=== PATIENT | female | born 1940 | race African-American/Black ===

== ENCOUNTER 2016-06-15 13:36 | Inpatient (IN) | payer MEDICARE ==
[2016-06-15 14:45] LABS: HEMATOCRIT 27.6 % (36.0-47.0); HEMOGLOBIN 8.8 g/dL (12.0-15.5); HGB HCT DIFFERENCE -1.2; MEAN CORPUSCULAR HEMOGLOBIN 24.2 pg (27.0-33.4); MEAN CORPUSCULAR HGB CONC 31.8 g/dL (32.0-36.0); MEAN CORPUSCULAR VOLUME 76 fl (80-97); RED BLOOD COUNT 3.63 10^6/uL (3.72-5.28); WHITE BLOOD COUNT 5.1 10^3/uL (4.0-10.5)
[2016-06-15 15:02] LABS: ALANINE AMINOTRANSFERASE 51 U/L (9-52); ALBUMIN 3.4 g/dL (3.5-5.0); ALKALINE PHOSPHATASE 57 U/L (38-126); ANION GAP 12 (5-19); ASPARTATE AMINO TRANSFERASE 42 U/L (14-36); BILIRUBIN,TOTAL 0.8 mg/dL (0.2-1.3); BLOOD UREA NITROGEN 27 mg/dL (7-20); CALCIUM 9.1 mg/dL (8.4-10.2); CARBON DIOXIDE 28 mmol/L (22-30); CHLORIDE 96 mmol/L (98-107); CREATINE KINASE 250 U/L (30-135); CREATININE RESULT 0.93 mg/dL (0.52-1.25); GLUCOSE 104 mg/dL (75-110); POTASSIUM 4.5 mmol/L (3.6-5.0); SODIUM 135.5 mmol/L (137-145); TOTAL PROTEIN 6.1 g/dL (6.3-8.2)
[2016-06-15 15:23] LABS: CREATINE KINASE MB 4.75 ng/mL (<4.55); TROPONIN I 0.015 ng/mL
[2016-06-15 15:46] LABS: FERRITIN 8.51 ng/mL (11.1-264.0)
[2016-06-15] MEDS ORDERED: (PENDING PHARMACY ID) (Lisinopril/Hydrochlorothiazide [Zestoretic 20-12.5 Mg Tablet] 1 TAB PO SCH (17:00)
[2016-06-15] MEDS ORDERED: NORMAL SALINE 250 ML IV PRN ×2 (17:22)
[2016-06-15] MEDS ORDERED: NORMAL SALINE 250 ML with FUROSEMIDE 250 MG IV PRN ×4 (17:24→21:12)
[2016-06-15] MEDS ORDERED: ATORVASTATIN CALCIUM 10 MG TABLET PO ONE (18:00)
[2016-06-15] MEDS ORDERED: IRON SUCROSE COMPLEX INJ/PF 100 MG/5 ML SDV IV ONE (18:00)
[2016-06-15] MEDS ORDERED: METOPROLOL SUCCINATE 25 MG TAB.SR.24H PO ONE (18:00)
[2016-06-15] MEDS: RIVAROXABAN 15 MG TABLET PO SCH (18:04)
[2016-06-15] MEDS ORDERED: METFORMIN HCL 500 MG TABLET PO ONE (19:00)
--- NOTE | 2016-06-15 20:51 | XCELERA REPORT ---
[address] [address] Transthoracic Echocardiogram Report Name: AILYN ROMERO Age: 76 yrs Gender: Female : 1940 Patient Status: Inpatient Patient Location: 5\S\537\S\A Study Date: 06/15/2016 08:04 PM Height: 64 in Weight: 91 lb BSA: 1.4 m2 Procedure: A complete two-dimensional transthoracic echocardiogram was performed (2D, M-mode, spectral and color flow Doppler). The study was technically adequate with some images being suboptimal in quality. Reason For Study: CHF Ordering Physician: JONATAN LÓPEZ Performed By: Mendez Back Interpretation Summary Left ventricular systolic function is low normal. The right ventricle is moderate to severely dilated. The right ventricular systolic function is moderately reduced. The right ventricle appears to be hypertrophied There is mild concentric left ventricular hypertrophy. The left ventricle is grossly normal size. LV Wall motion cannot be accurately commented on, but no definite regional wall motion abnormalities noted. LV diastolic function could not be adequately assessed. The right atrium is severely dilated. The left atrium is small. There is no mitral valve stenosis. There is a mild amount of mitral regurgitation There is no aortic valve stenosis There is a mild amount of aortic regurgitation There is a mild to moderate amount of tricuspid regurgitation There is moderate to severe pulmonary hypertension by echo Right ventricular systolic pressure is estimated to be elevated at 50- 60mmHg. The aortic root is not well visualized but is probably normal size. The inferior vena cava appeared dilated and decreased < 50% with respiration (RAP 15-20 mmHg) Minimal pericardial effusion. MMode/2D Measurements \T\ Calculations RVDd: 2.6 cm LVIDd: 3.9 cm FS: 38.3 % Ao root diam: 3.6 cm IVSd: 0.89 cm LVIDs: 2.4 cm EDV(Teich): 66.6 ml LVPWd: 1.0 cm ESV(Teich): 20.5 ml Ao root area: 10.0 cm2 EF(Teich): 69.2 % LA dimension: 2.7 cm Doppler Measurements \T\ Calculations MV E max jose: MV P1/2t max jose: Ao V2 max: AI max jose: 78.0 cm/sec 75.3 cm/sec 135.7 cm/sec 350.5 cm/sec MV A max jose: MV P1/2t: 48.8 msec Ao max PG: AI max P.7 cm/sec 7.4 mmHg 49.5 mmHg MV E/A: 0.51 MVA(P1/2t): 4.5 cm2 AI dec slope: MV dec slope: 452.5 cm/sec2 211.3 cm/sec2 MV dec time: AI P1/2t: 0.17 sec 485.8 msec LV V1 max PG: PA V2 max: PI end-d jose: TR max jose: 1.5 mmHg 43.7 cm/sec 176.5 cm/sec 308.1 cm/sec LV V1 max: PA max PG: TR max P.6 cm/sec 0.77 mmHg 38.0 mmHg RVSP(TR): 48.0 mmHg RAP systole: 10.0 mmHg Left Ventricle The left ventricle is grossly normal size. There is mild concentric left ventricular hypertrophy. Left ventricular systolic function is low normal. LV diastolic function could not be adequately assessed. Wall motion cannot be accurately commented on, but no definite regional wall motion abnormalities noted. Right Ventricle The right ventricle is moderate to severely dilated. The right ventricle appears to be hypertrophied. The right ventricular systolic function is moderately reduced. Atria The right atrium is severely dilated. The left atrium is small. Interarterial septum not well visualized and not well dopplered. Cannot comment on ASD/PFO presence. Mitral Valve The mitral valve is grossly normal. There is no mitral valve stenosis. There is a mild amount of mitral regurgitation. Aortic Valve The aortic valve is grossly normal. There is no aortic valve stenosis. There is a mild amount of aortic regurgitation. Tricuspid Valve The tricuspid valve is not well visualized, but is grossly normal. There is no tricuspid stenosis. There is a mild to moderate amount of tricuspid regurgitation. There is moderate to severe pulmonary hypertension by echo. Right ventricular systolic pressure is estimated to be elevated at 50- 60mmHg. Pulmonic Valve The pulmonic valve is not well visualized. Great Vessels The aortic root is not well visualized but is probably normal size. The inferior vena cava appeared dilated and decreased < 50% with respiration (RAP 15-20 mmHg). Effusions Minimal pericardial effusion. : JONATAN LÓPEZ > Mike Mccall
[2016-06-15] MEDS: HYDROCHLOROTHIAZIDE 12.5 MG CAPSULE PO SCH (21:56)
[2016-06-15] MEDS: LISINOPRIL 10 MG TABLET PO SCH (21:57)
[2016-06-15 23:14] LABS: CREATINE KINASE MB 3.91 ng/mL (<4.55); TROPONIN I 0.016 ng/mL
[2016-06-16] MEDS ORDERED: LORAZEPAM INJ 2 MG/1 ML VIAL IV ONE (02:00)
[2016-06-16] MEDS ORDERED: FUROSEMIDE INJ/PF 20 MG/2 ML SDV ONE (04:46)
[2016-06-16 07:46] LABS: CREATINE KINASE MB 3.51 ng/mL (<4.55); TROPONIN I 0.014 ng/mL
--- NOTE | 2016-06-16 08:17 | EKG REPORT ---
SEVERITY:- ABNORMAL ECG - SINUS RHYTHM LEFT ATRIAL ABNORMALITY NO R WAVE PROGRESSION ANTERIOR LEADS, CONSIDER OLD VA ABNORMAL T, CONSIDER ISCHEMIA, DIFFUSE LEADS BORDERLINE PROLONGED QT INTERVAL : Confirmed by: Gage Cloud MD 16-Jun-2016 08:16:51
[2016-06-16 08:55] LABS: ABSOLUTE BASOPHILS # (AUTO) 0.1 10^3/uL (0.0-0.2); ABSOLUTE LYMPHOCYTES (AUTO) 1.4 10^3/uL (0.5-4.7); ABSOLUTE MONOCYTES (AUTO) 0.5 10^3/uL (0.1-1.4); ABSOLUTE NEUT (AUTO) 5.1 10^3/uL (1.7-8.2); BASOPHILS % (AUTO) 1.4 % (0-2); EOSINOPHILS % (AUTO) 0.7 % (0-6); HEMOGLOBIN 10.8 g/dL (12.0-15.5); HGB HCT DIFFERENCE -0.6; MEAN CORPUSCULAR HEMOGLOBIN 26.2 pg (27.0-33.4); MEAN CORPUSCULAR HGB CONC 32.8 g/dL (32.0-36.0); MONOCYTES % (AUTO) 7.1 % (3-13); RED BLOOD COUNT 4.13 10^6/uL (3.72-5.28); RED CELL DISTRIBUTION WIDTH 19.2 % (11.5-14.0); SEGMENTED NEUTROPHILS % (AUTO) 70.8 % (42-78); WHITE BLOOD COUNT 7.2 10^3/uL (4.0-10.5)
[2016-06-16 09:18] LABS: MEAN CORPUSCULAR VOLUME 80 fl (80-97)
[2016-06-16] MEDS: METFORMIN HCL 500 MG TABLET PO SCH ×2 (11:36→18:01)
[2016-06-16] MEDS: HYDROCHLOROTHIAZIDE 12.5 MG CAPSULE PO SCH ×2 (11:36→21:45)
[2016-06-16] MEDS: METOPROLOL SUCCINATE 25 MG TAB.SR.24H PO SCH (11:36)
[2016-06-16] MEDS: LISINOPRIL 10 MG TABLET PO SCH ×2 (11:37→21:45)
[2016-06-16] MEDS: RIVAROXABAN 15 MG TABLET PO SCH (18:01)
[2016-06-16] MEDS: ATORVASTATIN CALCIUM 10 MG TABLET PO SCH (18:03)
--- NOTE | 2016-06-16 19:29 | PDOC H&P ---
History of Present Illness Admission Date/PCP: 06/15/16 13:36 JONATAN LÓPEZ MD History of Present Illness: AILYN ROMERO is a 76 year old female. she came to the office without a scheduled appointment, she complained of extreme fatigue, shortness of breath and lower extremity swelling/edema. She was evaluated in the office she was found to be pale looking, she was admitted directly from the office into the hospital for evaluation of her symptoms. She presented to the office with CHF picture, in the hospital. The serum BNP was 7970 that suggest CHF. She was also found to have iron deficiency anemia. A 2-D echo was done it showed moderate to severe dilated right ventricle, the right ventricle appears to be hypertrophied, there is mild concentric left ventricular hypertrophy. The left ventricle was grossly normal size. The right atrium is severely dilated. There is moderate to severe pulmonary hypertension. The right ventricle systolic pressure is estimated to be 50-[address] chest of the lung was ordered to define the lung interstitium but patient refused to do CT chest, because she is terrified of the CT scanner. She has severe anemia in the setting of congestive heart failure, though she does not meet the criteria of hemoglobin below 8 to get a blood transfusion, but it is del cid to transfuse her because she is CHF/right ventricular heart failure. Past Medical History Cardiac Medical History: Reports: Atrial Fibrillation, Hyperlipidema, Hypertension, Other - Pulmonary hypertension Endocrine Medical History: Reports: Diabetes Mellitus Type 2 Musculoskeltal Medical History: Reports: Arthritis Social History Smoking Status: Never Smoker Frequency of Alcohol Use: None Hx Recreational Drug Use: No Hx Prescription Drug Abuse: No Family History Family History: Reviewed & Not Pertinent Parental Family History Reviewed: Yes Children Family History Reviewed: Yes Sibling(s) Family History Reviewed.: Yes Medication/Allergy Home Medications: Atorvastatin Calcium [Lipitor 10 mg Tablet] 10 mg PO DAILY 06/15/16 Cyanocobalamin (Vitamin B-12) [Vitamin B-12 Inj 1000 Mcg/1 ml Vial] 1,000 mcg INJ Q30D 06/15/16 Lisinopril/Hydrochlorothiazide [Zestoretic 20-12.5 mg Tablet] 1 tab PO Q12 06/15 Metformin HCl [Glucophage] 1,000 mg PO BID 06/15/16 Metoprolol Succinate [Toprol Xl 25 mg Tab.sr] 25 mg PO DAILY 06/15/16 Rivaroxaban [Xarelto 15 mg Tablet] 15 mg PO DAILY 06/15/16 Allergies/Adverse Reactions: iodine [Iodine] Allergy (Unknown, Verified 04/01/12 14:41) seafood Allergy (Unknown, Uncoded 04/01/12 14:41) Anaphylaxis Review of Systems Constitutional: PRESENT: fatigue, weakness Cardiovascular: PRESENT: dyspnea on exertion, edema Gastrointestinal: PRESENT: nausea Genitourinary: ABSENT: as per HPI, difficulty urinating, dysuria, hematuria, nocturia, other Neurological: PRESENT: weakness Endocrine: ABSENT: as per HPI, cold intolerance, flushing, heat intolerance, menstrual abnormalities, polydipsia, polyphagia, polyuria, other Hematologic/Lymphatic: ABSENT: as per HPI, easy bleeding, easy bruising, lymphadenopathy, other Physical Exam Vital Signs: Temp Pulse Resp BP Pulse Ox 97.7 F 73 15 126/89 H 100 06/16/16 15:00 06/16/16 15:00 06/16/16 15:00 06/16/16 15:00 06/16/16 15:00 Intake & Output 06/15/16 06/16/16 06/17/16 06:59 06:59 06:59 Intake Total 1776 1550 Output Total 1800 1550 Balance -24 0 Weight 41.7 kg General appearance: PRESENT: mild distress, thin Eye exam: PRESENT: PERRLA Mouth exam: PRESENT: dry mucosa Neck exam: PRESENT: other - No jugular venous distention, no lymphadenopathy Respiratory exam: PRESENT: rales Cardiovascular exam: PRESENT: +S1, +S2, other - Irregular heartbeat GI/Abdominal exam: PRESENT: soft Extremities exam: PRESENT: pedal edema Neurological exam: PRESENT: alert, oriented to person, oriented to place, CN II- XII grossly intact Results Laboratory Results: 06/16/16 08:46 06/15/16 14:28 06/15/16 06/16/16 17:35 08:46 WBC 7.2 RBC 4.13 Hgb 10.8 L Hct 33.0 L MCV 80 D MCH 26.2 L MCHC 32.8 RDW 19.2 H Plt Count 268 Seg Neutrophils % 70.8 Lymphocytes % 20.0 Monocytes % 7.1 Eosinophils % 0.7 Basophils % 1.4 Absolute Neutrophils 5.1 Absolute Lymphocytes 1.4 Absolute Monocytes 0.5 Absolute Eosinophils 0.0 Absolute Basophils 0.1 Blood Type A NEGATIVE Antibody Screen NEGATIVE 06/15/16 06/15/16 06/15/16 14:28 14:28 22:35 Creatine Kinase 250 H 231 H CK-MB (CK-2) 4.75 H Troponin I 0.015 NT-Pro-B Natriuret Pep 7970 H 06/15/16 06/16/16 06/16/16 22:35 07:07 07:07 Creatine Kinase 199 H CK-MB (CK-2) 3.91 3.51 Troponin I 0.016 0.014 NT-Pro-B Natriuret Pep Impressions: Chest X-Ray 06/15/16 00:00 IMPRESSION: CARDIAC ENLARGEMENT. VASCULAR CONGESTION. Assessment & Plan - Diagnosis (1) Right heart failure with reduced right ventricular function Is this a current diagnosis for this admission?: YesPlan: She has symptomatic right ventricular heart failure. There is associated severe pulmonary hypertension, patient is on Xarelto because of atrial fibrillation is unlikely that she has pulmonary embolism, she probably have interstitial lung disease on auscultation of the chest there is dry crackles but patient refused CT chest to define the parenchyma of the lung (2) Iron deficiency anemia Qualifiers: Iron deficiency anemia type: unspecified iron deficiency Qualified Code(s): D50.9 - Iron deficiency anemia, unspecified Is this a current diagnosis for this admission?: YesPlan: She has iron deficiency anemia, she was given Venofer and transfused with 2 units of packed red blood cells (3) Chronic atrial fibrillation Is this a current diagnosis for this admission?: Yes (4) Diabetes mellitus type 2 in nonobese Is this a current diagnosis for this admission?: Yes (5) Body mass index (BMI) 19 or less, adult Is this a current diagnosis for this admission?: YesPlan: This is due to undernutrition
--- NOTE | 2016-06-16 19:38 | PDOC PROGRESS REPORT ---
Subjective Progress Note for:: 06/16/16 Subjective:: Patient was seen by the bedside, she was admitted yesterday because of cor pulmonale, the chest x-ray showed COPD patient refused CT scan of the chest. She was transfused with 2 units of packed red blood cells, and she was treated with low dose Lasix infusion. This will be discontinued Physical Exam Vital Signs: Temp Pulse Resp BP Pulse Ox 97.7 F 73 15 126/89 H 100 06/16/16 15:00 06/16/16 15:00 06/16/16 15:00 06/16/16 15:00 06/16/16 15:00 Intake & Output 06/15/16 06/16/16 06/17/16 06:59 06:59 06:59 Intake Total 1776 1550 Output Total 1800 1550 Balance -24 0 Weight 41.7 kg General appearance: PRESENT: no acute distress Eye exam: PRESENT: PERRLA Respiratory exam: PRESENT: crackles Cardiovascular exam: PRESENT: +S1, +S2 GI/Abdominal exam: PRESENT: soft Extremities exam: PRESENT: pedal edema Neurological exam: PRESENT: alert, CN II-XII grossly intact Results Laboratory Results: 06/16/16 08:46 06/15/16 14:28 06/15/16 06/16/16 17:35 08:46 WBC 7.2 RBC 4.13 Hgb 10.8 L Hct 33.0 L MCV 80 D MCH 26.2 L MCHC 32.8 RDW 19.2 H Plt Count 268 Seg Neutrophils % 70.8 Lymphocytes % 20.0 Monocytes % 7.1 Eosinophils % 0.7 Basophils % 1.4 Absolute Neutrophils 5.1 Absolute Lymphocytes 1.4 Absolute Monocytes 0.5 Absolute Eosinophils 0.0 Absolute Basophils 0.1 Blood Type A NEGATIVE Antibody Screen NEGATIVE 06/15/16 06/15/16 06/15/16 14:28 14:28 22:35 Creatine Kinase 250 H 231 H CK-MB (CK-2) 4.75 H Troponin I 0.015 NT-Pro-B Natriuret Pep 7970 H 06/15/16 06/16/16 06/16/16 22:35 07:07 07:07 Creatine Kinase 199 H CK-MB (CK-2) 3.91 3.51 Troponin I 0.016 0.014 NT-Pro-B Natriuret Pep Impressions: Chest X-Ray 06/15/16 00:00 IMPRESSION: CARDIAC ENLARGEMENT. VASCULAR CONGESTION. Assessment & Plan - Diagnosis (1) Right heart failure with reduced right ventricular function Is this a current diagnosis for this admission?: Yes (2) Iron deficiency anemia Qualifiers: Iron deficiency anemia type: unspecified iron deficiency Qualified Code(s): D50.9 - Iron deficiency anemia, unspecified Is this a current diagnosis for this admission?: Yes (3) Chronic atrial fibrillation Is this a current diagnosis for this admission?: Yes (4) Diabetes mellitus type 2 in nonobese Is this a current diagnosis for this admission?: Yes (5) Body mass index (BMI) 19 or less, adult Is this a current diagnosis for this admission?: Yes (6) Cor pulmonale Is this a current diagnosis for this admission?: YesPlan: She has cor pulmonale, a full PFT will be ordered.
[2016-06-16] MEDS ORDERED: LEVALBUTEROL HCL NEB 0.63 MG/3 ML AMPUL NEB PRN (19:39)
[2016-06-16 20:38] LABS: HEMATOCRIT 35.3 % (36.0-47.0); HEMOGLOBIN 11.5 g/dL (12.0-15.5); HGB HCT DIFFERENCE -0.8; MEAN CORPUSCULAR HGB CONC 32.6 g/dL (32.0-36.0); MEAN CORPUSCULAR VOLUME 80 fl (80-97); RED BLOOD COUNT 4.42 10^6/uL (3.72-5.28); RED CELL DISTRIBUTION WIDTH 19.4 % (11.5-14.0); WHITE BLOOD COUNT 8.9 10^3/uL (4.0-10.5)
[2016-06-16 20:47] LABS: PROTHROMBIN TIME 17.6 SEC (11.4-15.4)
[2016-06-16 20:48] LABS: PARTIAL THROMBOPLASTIN TIME 37.5 SEC (23.5-35.8)
[2016-06-16 20:52] LABS: CREATININE RESULT 1.16 mg/dL (0.52-1.25)
[2016-06-17] MEDS: METOPROLOL SUCCINATE 25 MG TAB.SR.24H PO SCH (10:11)
[2016-06-17] MEDS: HYDROCHLOROTHIAZIDE 12.5 MG CAPSULE PO SCH ×2 (10:11→22:34)
[2016-06-17] MEDS: METFORMIN HCL 500 MG TABLET PO SCH ×2 (10:12→17:14)
[2016-06-17] MEDS: LISINOPRIL 10 MG TABLET PO SCH ×2 (10:12→22:34)
[2016-06-17 11:40] LABS: CREATININE URINE 40.6 mg/dL (Not Estab.); CREATININE URINE 41.7 mg/dL (Not Estab.); MICROALBUMIN URINE 30.4 ug/mL (Not Estab.)
--- NOTE | 2016-06-17 15:06 | PDOC PROGRESS REPORT ---
Subjective Progress Note for:: 06/17/16 Subjective:: Patient was seen by the bedside, she was admitted because of cor pulmonale, with right heart failure. The disease process was explained to her, she is very hard of hearing. There is associated severe pulmonary hypertension. She will stay the weekend Physical Exam Vital Signs: Temp Pulse Resp BP Pulse Ox 97.8 F 73 18 114/69 96 06/17/16 11:00 06/17/16 14:00 06/17/16 11:00 06/17/16 11:00 06/17/16 11:00 Intake & Output 06/16/16 06/17/16 06/18/16 06:59 06:59 06:59 Intake Total 1776 2350 Output Total 1800 1750 Balance -24 600 Weight 41.7 kg 42.2 kg General appearance: PRESENT: no acute distress Eye exam: PRESENT: PERRLA Respiratory exam: PRESENT: crackles Cardiovascular exam: PRESENT: irregular rhythm, +S1, +S2 GI/Abdominal exam: PRESENT: soft Neurological exam: PRESENT: alert, CN II-XII grossly intact Results Laboratory Results: 06/16/16 20:30 06/16/16 20:30 06/16/16 06/16/16 20:30 20:30 WBC 8.9 RBC 4.42 Hgb 11.5 L Hct 35.3 L MCV 80 MCH 26.0 L MCHC 32.6 RDW 19.4 H Plt Count 284 Creatinine 1.16 Est GFR ( Amer) 55 L Est GFR (Non-Af Amer) 45 L 06/15/16 06/15/16 06/15/16 14:28 14:28 22:35 Creatine Kinase 250 H 231 H CK-MB (CK-2) 4.75 H Troponin I 0.015 NT-Pro-B Natriuret Pep 7970 H 06/15/16 06/16/16 06/16/16 22:35 07:07 07:07 Creatine Kinase 199 H CK-MB (CK-2) 3.91 3.51 Troponin I 0.016 0.014 NT-Pro-B Natriuret Pep Impressions: Chest X-Ray 06/15/16 00:00 IMPRESSION: CARDIAC ENLARGEMENT. VASCULAR CONGESTION. Assessment & Plan - Diagnosis (1) Right heart failure with reduced right ventricular function Is this a current diagnosis for this admission?: YesPlan: She may need home oxygen and discharged, she was advised to use compression stocking for the lower extremity edema and to avoid diuretic (2) Iron deficiency anemia Qualifiers: Iron deficiency anemia type: unspecified iron deficiency Qualified Code(s): D50.9 - Iron deficiency anemia, unspecified Is this a current diagnosis for this admission?: Yes (3) Chronic atrial fibrillation Is this a current diagnosis for this admission?: Yes (4) Diabetes mellitus type 2 in nonobese Is this a current diagnosis for this admission?: Yes (5) Body mass index (BMI) 19 or less, adult Is this a current diagnosis for this admission?: Yes (6) Cor pulmonale Is this a current diagnosis for this admission?: Yes
[2016-06-17] MEDS: ATORVASTATIN CALCIUM 10 MG TABLET PO SCH (17:14)
[2016-06-17] MEDS: RIVAROXABAN 15 MG TABLET PO SCH (17:14)
--- NOTE | 2016-06-18 11:05 | PDOC PROGRESS REPORT ---
Subjective Progress Note for:: 06/18/16 Subjective:: Severe hearing impairment. Denied chest pain, difficulty with breathing, nausea , vomiting or abdominal pain. Tolerating oral intake. Physical Exam Vital Signs: Temp Pulse Resp BP Pulse Ox 98.1 F 74 14 125/77 97 06/18/16 08:15 06/18/16 08:15 06/18/16 08:15 06/18/16 08:15 06/18/16 08:15 Intake & Output 06/17/16 06/18/16 06/19/16 06:59 06:59 06:59 Intake Total 2350 1980 Output Total 1750 800 Balance 600 1180 Weight 42.2 kg 43 kg General appearance: PRESENT: no acute distress, cooperative, thin Head exam: PRESENT: atraumatic, normocephalic Eye exam: PRESENT: conjunctiva pink, EOMI, PERRLA. ABSENT: scleral icterus Mouth exam: PRESENT: moist Throat exam: ABSENT: post pharyngeal erythema, tonsillar erythema, tonsillar exudate, tonsillogmegaly, other Neck exam: PRESENT: full ROM. ABSENT: carotid bruit, JVD, lymphadenopathy, thyromegaly Respiratory exam: ABSENT: accessory muscle use, chest wall tenderness, clear to auscultation chip, crackles, decreased breath sounds, prolonged expiratory phas, rales, retraction, rhonchi, stridor, symmetrical, tachypnea, unlabored, wheezes , other Cardiovascular exam: PRESENT: RRR. ABSENT: diastolic murmur, rubs, systolic murmur GI/Abdominal exam: PRESENT: normal bowel sounds, soft. ABSENT: distended, guarding, mass, organolmegaly, rebound, tenderness Extremities exam: PRESENT: full ROM Musculoskeletal exam: PRESENT: deformity - related to joint involvement with arthritis Neurological exam: PRESENT: alert, awake, oriented to person, oriented to place , oriented to time, oriented to situation, CN II-XII grossly intact. ABSENT: motor sensory deficit Psychiatric exam: PRESENT: appropriate affect, normal mood. ABSENT: homicidal ideation, suicidal ideation Skin exam: PRESENT: dry, intact, warm. ABSENT: cyanosis, rash Results Laboratory Results: 06/16/16 20:30 06/16/16 20:30 06/15/16 06/15/16 06/15/16 14:28 14:28 22:35 Creatine Kinase 250 H 231 H CK-MB (CK-2) 4.75 H Troponin I 0.015 NT-Pro-B Natriuret Pep 7970 H 06/15/16 06/16/16 06/16/16 22:35 07:07 07:07 Creatine Kinase 199 H CK-MB (CK-2) 3.91 3.51 Troponin I 0.016 0.014 NT-Pro-B Natriuret Pep Impressions: Chest X-Ray 06/15/16 00:00 IMPRESSION: CARDIAC ENLARGEMENT. VASCULAR CONGESTION. Assessment & Plan - Diagnosis (1) Protein-calorie malnutrition, moderate Is this a current diagnosis for this admission?: YesPlan: Add oral supplementation to meals. Encouraged increase P.O intake. - Time Time Spent with patient: 25-34 minutes Medications reviewed and adjusted accordingly: Yes Anticipated discharge: Home Within: Other - Inpatient Certification Medical Necessity: Need For Continuous Telemetry Monitoring, Risk of Diagnosis Which Will Require Inpatient Eval/Care/Monitoring Post Hospital Care: D/C Insulation Board Back Tender Documentation - Plan Summary Plan Summary: See covering physician orders.
[2016-06-18] MEDS: METFORMIN HCL 500 MG TABLET PO SCH ×2 (11:26→17:06)
[2016-06-18] MEDS: METOPROLOL SUCCINATE 25 MG TAB.SR.24H PO SCH (11:27)
[2016-06-18] MEDS: LISINOPRIL 10 MG TABLET PO SCH (11:29)
[2016-06-18] MEDS: HYDROCHLOROTHIAZIDE 12.5 MG CAPSULE PO SCH (11:30)
[2016-06-18] MEDS: RIVAROXABAN 15 MG TABLET PO SCH (17:07)
[2016-06-18] MEDS: ATORVASTATIN CALCIUM 10 MG TABLET PO SCH (17:07)
[2016-06-19] MEDS: HYDROCHLOROTHIAZIDE 12.5 MG CAPSULE PO SCH ×3 (00:23→23:37)
[2016-06-19] MEDS: LISINOPRIL 10 MG TABLET PO SCH ×3 (00:23→23:38)
--- NOTE | 2016-06-19 11:01 | PDOC PROGRESS REPORT ---
Subjective Progress Note for:: 06/19/16 Subjective:: Severe hearing impairment. Denied chest pain, difficulty with breathing, nausea , vomiting or abdominal pain. Tolerating oral intake. Physical Exam Vital Signs: Temp Pulse Resp BP Pulse Ox 97.3 F 67 16 100/64 95 06/19/16 08:00 06/19/16 08:00 06/19/16 08:00 06/19/16 10:04 06/19/16 08:00 Intake & Output 06/18/16 06/19/16 06/20/16 06:59 06:59 06:59 Intake Total 1980 2610 Output Total 800 500 Balance 1180 2110 Weight 43 kg 42.5 kg Physical Exam: General appearance: PRESENT: no acute distress, cooperative, thin Head exam: PRESENT: atraumatic, normocephalic Eye exam: PRESENT: conjunctiva pink, EOMI, PERRLA. ABSENT: scleral icterus Mouth exam: PRESENT: moist Throat exam: ABSENT: post pharyngeal erythema, tonsillar erythema, tonsillar exudate, tonsillogmegaly, other Neck exam: PRESENT: full ROM. ABSENT: carotid bruit, JVD, lymphadenopathy, thyromegaly Respiratory exam: ABSENT: accessory muscle use, chest wall tenderness, clear to auscultation chip, crackles, decreased breath sounds, prolonged expiratory phas, rales, retraction, rhonchi, stridor, symmetrical, tachypnea, unlabored, wheezes , other Cardiovascular exam: PRESENT: RRR. ABSENT: diastolic murmur, rubs, systolic murmur GI/Abdominal exam: PRESENT: normal bowel sounds, soft. ABSENT: distended, guarding, mass, organolmegaly, rebound, tenderness Extremities exam: PRESENT: full ROM Musculoskeletal exam: PRESENT: deformity - related to joint involvement with arthritis Neurological exam: PRESENT: alert, awake, oriented to person, oriented to place , oriented to time, oriented to situation, CN II-XII grossly intact. ABSENT: motor sensory deficit Psychiatric exam: PRESENT: appropriate affect, normal mood. ABSENT: homicidal ideation, suicidal ideation Skin exam: PRESENT: dry, intact, warm. ABSENT: cyanosis, rash Results Laboratory Results: 06/16/16 20:30 06/16/16 20:30 06/15/16 06/15/16 06/15/16 14:28 14:28 22:35 Creatine Kinase 250 H 231 H CK-MB (CK-2) 4.75 H Troponin I 0.015 NT-Pro-B Natriuret Pep 7970 H 06/15/16 06/16/16 06/16/16 22:35 07:07 07:07 Creatine Kinase 199 H CK-MB (CK-2) 3.91 3.51 Troponin I 0.016 0.014 NT-Pro-B Natriuret Pep Impressions: Chest X-Ray 06/15/16 00:00 IMPRESSION: CARDIAC ENLARGEMENT. VASCULAR CONGESTION. Assessment & Plan - Diagnosis (1) Protein-calorie malnutrition, moderate Is this a current diagnosis for this admission?: YesPlan: Maintain on oral supplementation with meals. Encouraged increase P.O intake. (2) Chronic atrial fibrillation Is this a current diagnosis for this admission?: YesPlan: Continue current medication management. (3) Cor pulmonale Is this a current diagnosis for this admission?: Yes (4) Diabetes mellitus type 2 in nonobese Is this a current diagnosis for this admission?: YesPlan: Continue current medication management. (5) Iron deficiency anemia Qualifiers: Iron deficiency anemia type: unspecified iron deficiency Qualified Code(s): D50.9 - Iron deficiency anemia, unspecified Is this a current diagnosis for this admission?: YesPlan: Continue current medication management. (6) Right heart failure with reduced right ventricular function Is this a current diagnosis for this admission?: YesPlan: Continue current medication management. - Time Time Spent with patient: 25-34 minutes Medications reviewed and adjusted accordingly: Yes Anticipated discharge: Home with Homehealth Within: Other - Inpatient Certification Medical Necessity: Need For Continuous Telemetry Monitoring, Risk of Complication if Not Cared For in Hospital - Plan Summary Plan Summary: See covering physician orders.
[2016-06-19] MEDS: METOPROLOL SUCCINATE 25 MG TAB.SR.24H PO SCH (12:18)
[2016-06-19] MEDS: METFORMIN HCL 500 MG TABLET PO SCH ×2 (12:25→18:35)
[2016-06-19] MEDS: ATORVASTATIN CALCIUM 10 MG TABLET PO SCH (18:35)
[2016-06-19] MEDS: RIVAROXABAN 15 MG TABLET PO SCH (18:35)
[2016-06-20] MEDS: METOPROLOL SUCCINATE 25 MG TAB.SR.24H PO SCH (10:08)
[2016-06-20] MEDS: HYDROCHLOROTHIAZIDE 12.5 MG CAPSULE PO SCH ×2 (10:09→21:56)
[2016-06-20] MEDS: LISINOPRIL 10 MG TABLET PO SCH ×2 (10:09→21:56)
[2016-06-20] MEDS: METFORMIN HCL 500 MG TABLET PO SCH ×2 (10:10→17:22)
[2016-06-20] MEDS: ATORVASTATIN CALCIUM 10 MG TABLET PO SCH (17:21)
[2016-06-20] MEDS: RIVAROXABAN 15 MG TABLET PO SCH (17:22)
--- NOTE | 2016-06-20 21:16 | PDOC DISCHARGE SUMMARY ---
General - Admit/Disc Date/PCP Admission Date/Primary Care Provider: 06/15/16 13:36 JONATAN LÓPEZ MD Discharge Date: 06/21/16 - Discharge Diagnosis (1) Right heart failure with reduced right ventricular function Is this a current diagnosis for this admission?: Yes (2) Iron deficiency anemia Is this a current diagnosis for this admission?: Yes (3) Chronic atrial fibrillation Is this a current diagnosis for this admission?: Yes (4) Diabetes mellitus type 2 in nonobese Is this a current diagnosis for this admission?: Yes (5) Body mass index (BMI) 19 or less, adult Is this a current diagnosis for this admission?: Yes (6) Cor pulmonale Is this a current diagnosis for this admission?: Yes - Additional Information Discharge Diet: Diabetic Discharge Activity: Activity As Tolerated, Balance Activity w/Rest, Weigh Daily Home Medications: Atorvastatin Calcium [Lipitor 10 mg Tablet] 10 mg PO DAILY 06/15/16 Cyanocobalamin (Vitamin B-12) [Vitamin B-12 Inj 1000 Mcg/1 ml Vial] 1,000 mcg INJ Q30D 06/15/16 Lisinopril/Hydrochlorothiazide [Zestoretic 20-12.5 mg Tablet] 1 tab PO Q12 06/15 Metformin HCl [Glucophage] 1,000 mg PO BID 06/15/16 Metoprolol Succinate [Toprol Xl 25 mg Tab.sr] 25 mg PO DAILY 06/15/16 Rivaroxaban [Xarelto 15 mg Tablet] 15 mg PO DAILY 06/15/16 History of Present Illness History of Present Illness: AILYN ROMERO is a 76 year old female. she came to the office without a scheduled appointment, she complained of extreme fatigue, shortness of breath and lower extremity swelling/edema. She was evaluated in the office she was found to be pale looking, she was admitted directly from the office into the hospital for evaluation of her symptoms. She presented to the office with CHF picture, in the hospital. The serum BNP was 7970 that suggest CHF. She was also found to have iron deficiency anemia. A 2-D echo was done it showed moderate to severe dilated right ventricle, the right ventricle appears to be hypertrophied, there is mild concentric left ventricular hypertrophy. The left ventricle was grossly normal size. The right atrium is severely dilated. There is moderate to severe pulmonary hypertension. The right ventricle systolic pressure is estimated to be 50-[address] chest of the lung was ordered to define the lung interstitium but patient refused to do CT chest, because she is terrified of the CT scanner. She has severe anemia in the setting of congestive heart failure, though she does not meet the criteria of hemoglobin below 8 to get a blood transfusion, but it is del cid to transfuse her because she is CHF/right ventricular heart failure. Hospital Course Hospital Course: Patient was admitted because of right heart failure with cor pulmonale, she was treated initially with low dose furosemide infusion. She also had severe iron deficiency anemia requiring blood transfusion, there was associated severe pulmonary hypertension, patient refused to have CT chest done because she is terrify the CT scan. PFT was done, it suggest restrictive lung disease with no obstruction.This does suggest interstitial lung disease Physical Exam Vital Signs: Temp Pulse Resp BP Pulse Ox 97.5 F 84 16 127/73 H 97 06/20/16 19:25 06/20/16 19:25 06/20/16 19:25 06/20/16 19:25 06/20/16 19:25 Intake & Output 06/19/16 06/20/16 06/21/16 06:59 06:59 06:59 Intake Total 2610 1370 1950 Output Total 500 2350 1000 Balance 2110 -980 950 Weight 42.5 kg 42.8 kg General appearance: PRESENT: no acute distress Eye exam: PRESENT: PERRLA Respiratory exam: PRESENT: crackles Cardiovascular exam: PRESENT: +S1, +S2 GI/Abdominal exam: PRESENT: soft Neurological exam: PRESENT: alert, CN II-XII grossly intact Results Laboratory Results: 06/16/16 20:30 06/16/16 20:30 06/15/16 06/15/16 06/15/16 14:28 14:28 22:35 Creatine Kinase 250 H 231 H CK-MB (CK-2) 4.75 H Troponin I 0.015 NT-Pro-B Natriuret Pep 7970 H 06/15/16 06/16/16 06/16/16 22:35 07:07 07:07 Creatine Kinase 199 H CK-MB (CK-2) 3.91 3.51 Troponin I 0.016 0.014 NT-Pro-B Natriuret Pep Impressions: Chest X-Ray 06/15/16 00:00 IMPRESSION: CARDIAC ENLARGEMENT. VASCULAR CONGESTION.
[2016-06-21] MEDS: METFORMIN HCL 500 MG TABLET PO SCH (10:20)
[2016-06-21] MEDS: HYDROCHLOROTHIAZIDE 12.5 MG CAPSULE PO SCH (10:20)
[2016-06-21] MEDS: METOPROLOL SUCCINATE 25 MG TAB.SR.24H PO SCH (10:20)
[2016-06-21] MEDS: LISINOPRIL 10 MG TABLET PO SCH (10:20)
[2016-06-21 11:13] VITALS: BP 109/69
== END 2016-06-21 13:45 | disposition home or self-care (01) | DRG 292 ==
LOC: 5 13:36
PROVIDERS: ADMIT Internal Medicine; ATTEND Internal Medicine
PROC: 30233N1 Transfusion of Nonautologous Red Blood Cells into Peripheral Vein, Percutaneous Approach (ICD-10-PCS; principal; 2016-06-15)
DX: I50.9 Heart failure, unspecified (principal); Z68.1 Body mass index [BMI] 19.9 or less, adult; E44.0 Moderate protein-calorie malnutrition; I27.2 Other secondary pulmonary hypertension; I27.81 Cor pulmonale (chronic); D50.9 Iron deficiency anemia, unspecified; I48.2 Chronic atrial fibrillation; E11.9 Type 2 diabetes mellitus without complications; E78.5 Hyperlipidemia, unspecified; I10 Essential (primary) hypertension; M19.90 Unspecified osteoarthritis, unspecified site; H91.90 Unspecified hearing loss, unspecified ear; Z79.84 Long term (current) use of oral hypoglycemic drugs; Z79.01 Long term (current) use of anticoagulants; Z91.013 Allergy to seafood; Z91.048 Other nonmedicinal substance allergy status
CPT/HCPCS: 36415; 36430; 71020; 80048; 80076; 82043; 82550; 82553; 82565; 82570; 82607; 82728; 82962; 83036; 83540; 83550; 83880; 84156; 84484; 85025; 85027; 85610; 85730; 86850; 86900; 86901; 86920; 86922; 93005; 93010; 93306; 94060; J1756; J1940; J7050; J7614; P9016

== ENCOUNTER 2016-10-12 13:16 | Inpatient (IN) | payer MEDICARE ==
[2016-10-12] MEDS: NORMAL SALINE 250 ML with FUROSEMIDE 250 MG IV PRN ×2 (15:35)
[2016-10-12 15:36] LABS: ALANINE AMINOTRANSFERASE 36 U/L (9-52); ALBUMIN 3.3 g/dL (3.5-5.0); ALKALINE PHOSPHATASE 47 U/L (38-126); ANION GAP 16 (5-19); ASPARTATE AMINO TRANSFERASE 27 U/L (14-36); BILIRUBIN,DIRECT 0.4 mg/dL (0.0-0.4); BILIRUBIN,TOTAL 0.7 mg/dL (0.2-1.3); BLOOD UREA NITROGEN 49 mg/dL (7-20); CALCIUM 8.2 mg/dL (8.4-10.2); CARBON DIOXIDE 22 mmol/L (22-30); CHLORIDE 99 mmol/L (98-107); CREATININE RESULT 1.55 mg/dL (0.52-1.25); GLUCOSE 76 mg/dL (75-110); SODIUM 136.7 mmol/L (137-145); TOTAL PROTEIN 5.7 g/dL (6.3-8.2)
[2016-10-12 15:52] LABS: HEMATOCRIT 34.3 % (36.0-47.0); HEMOGLOBIN 10.9 g/dL (12.0-15.5); HGB HCT DIFFERENCE -1.6; MEAN CORPUSCULAR HEMOGLOBIN 27.8 pg (27.0-33.4); MEAN CORPUSCULAR HGB CONC 31.8 g/dL (32.0-36.0); MEAN CORPUSCULAR VOLUME 87 fl (80-97); RED BLOOD COUNT 3.93 10^6/uL (3.72-5.28); RED CELL DISTRIBUTION WIDTH 20.2 % (11.5-14.0); WHITE BLOOD COUNT 4.9 10^3/uL (4.0-10.5)
[2016-10-12] MEDS: POTASSIUM CHLORIDE 10 MEQ TABLET.SA PO SCH ×2 (17:23→21:25)
[2016-10-12] MEDS ORDERED: ENOXAPARIN SODIUM INJ 30 MG/0.3 ML DISP.SYRIN SUBCUT ONE (17:30)
[2016-10-12] MEDS: CLINDAMYCIN 600 MG/D5W RTU 600 MG/50 ML RTUPB IV SCH (21:24)
[2016-10-13 00:41] LABS: APPEARANCE,URINE CLEAR; BILIRUBIN,URINE NEGATIVE (NEGATIVE); GLUCOSE, URINE NEGATIVE (NEGATIVE); KETONES,URINE NEGATIVE (NEGATIVE); LEUKOCYTE ESTERASE,URINE NEGATIVE (NEGATIVE); NITRITE,URINE NEGATIVE (NEGATIVE); PROTEIN,URINE NEGATIVE (NEGATIVE); URINE SPECIFIC GRAVITY 1.008; UROBILINOGEN,URINE NEGATIVE mg/dL (<2.0)
[2016-10-13] MEDS: POTASSIUM CHLORIDE 10 MEQ TABLET.SA PO SCH (01:34)
[2016-10-13] MEDS: CLINDAMYCIN 600 MG/D5W RTU 600 MG/50 ML RTUPB IV SCH ×3 (05:30→22:34)
[2016-10-13 05:39] LABS: ANION GAP 13 (5-19); BLOOD UREA NITROGEN 55 mg/dL (7-20); CALCIUM 8.3 mg/dL (8.4-10.2); CARBON DIOXIDE 23 mmol/L (22-30); CHLORIDE 98 mmol/L (98-107); CREATININE RESULT 1.46 mg/dL (0.52-1.25); GLUCOSE 121 mg/dL (75-110); SODIUM 134.2 mmol/L (137-145)
[2016-10-13 05:50] LABS: POTASSIUM 4.5 mmol/L (3.6-5.0)
[2016-10-13] MEDS ORDERED: ENOXAPARIN SODIUM INJ 40 MG/0.4 ML DISP.SYRIN SUBCUT SCH (10:00)
[2016-10-13] MEDS: ENOXAPARIN SODIUM INJ 30 MG/0.3 ML DISP.SYRIN SUBCUT SCH (10:36)
[2016-10-13] MEDS: NORMAL SALINE 250 ML with FUROSEMIDE 250 MG IV PRN ×2 (17:41)
[2016-10-13] MEDS ORDERED: PHARMACY COMMUNICATION ORDER MC SCH (18:00)
--- NOTE | 2016-10-13 18:02 | PDOC H&P ---
History of Present Illness Admission Date/PCP: 10/12/16 13:16 JONATAN LÓPEZ MD History of Present Illness: AILYN ROMERO is a 76 year old female she has a history of severe pulmonary hypertension, right-sided heart failure, I saw her in the office last week she presented for evaluation of swelling both lower extremities. She was prescribed diuretic, furosemide and metolazone. She came to the office today with increased swelling of both lower extremities associated with cellulitis.. He was admitted directly from the office for evaluation and management of cellulitis and anasarca. Past Medical History Cardiac Medical History: Reports: Atrial Fibrillation - Severe pulmonary hypertension, right heart failure, Hyperlipidema, Hypertension Pulmonary Medical History: Reports: Chronic Obstructive Pulmonary Disease (COPD) Endocrine Medical History: Reports: Diabetes Mellitus Type 2 Musculoskeltal Medical History: Reports: Arthritis Social History Smoking Status: Former Smoker Frequency of Alcohol Use: None Hx Recreational Drug Use: No Hx Prescription Drug Abuse: No Family History Family History: Reviewed & Not Pertinent Parental Family History Reviewed: Yes Children Family History Reviewed: Yes Sibling(s) Family History Reviewed.: Yes Medication/Allergy Home Medications: Atorvastatin Calcium [Lipitor 10 mg Tablet] 10 mg PO DAILY 06/15/16 Lisinopril/Hydrochlorothiazide [Zestoretic 20-12.5 mg Tablet] 1 tab PO Q12 06/15 Metformin HCl [Glucophage] 1,000 mg PO BID 06/15/16 Metoprolol Succinate [Toprol Xl 25 mg Tab.sr] 25 mg PO DAILY 06/15/16 Rivaroxaban [Xarelto 15 mg Tablet] 15 mg PO DAILY 06/15/16 Cyanocobalamin (Vitamin B-12) [Vitamin B-12 SL 1000 mcg Tablet] 1,000 mcg SL DAILY 10/12/16 Furosemide [Lasix] 40 mg PO DAILY 10/12/16 Allergies/Adverse Reactions: iodine [Iodine] Allergy (Unknown, Verified 04/01/12 14:41) seafood Allergy (Unknown, Uncoded 04/01/12 14:41) Anaphylaxis Review of Systems Constitutional: ABSENT: chills, fever(s), headache(s), weight gain, weight loss Eyes: ABSENT: visual disturbances Ears: ABSENT: hearing changes Cardiovascular: PRESENT: as per HPI, edema, other Respiratory: ABSENT: cough, hemoptysis Gastrointestinal: ABSENT: abdominal pain, constipation, diarrhea, hematemesis, hematochezia, nausea, vomiting Genitourinary: ABSENT: dysuria, hematuria Musculoskeletal: ABSENT: joint swelling Integumentary: ABSENT: rash, wounds Neurological: ABSENT: abnormal gait, abnormal speech, confusion, dizziness, focal weakness, syncope Psychiatric: ABSENT: anxiety, depression, homidical ideation, suicidal ideation Endocrine: ABSENT: cold intolerance, heat intolerance, menstrual abnormalities, polydipsia, polyuria Hematologic/Lymphatic: ABSENT: easy bleeding, easy bruising, lymphadenopathy Physical Exam Vital Signs: Temp Pulse Resp BP Pulse Ox 97.6 F 74 20 86/56 L 96 10/13/16 16:43 10/13/16 16:43 10/13/16 16:43 10/13/16 16:43 10/13/16 16:43 Intake & Output 10/12/16 10/13/16 10/14/16 06:59 06:59 06:59 Intake Total 508 425 Output Total 200 Balance 308 425 Weight 50.5 kg General appearance: PRESENT: mild distress Eye exam: PRESENT: PERRLA Neck exam: PRESENT: full ROM Respiratory exam: PRESENT: clear to auscultation chip Cardiovascular exam: PRESENT: +S1, +S2 Vascular exam: PRESENT: normal capillary refill GI/Abdominal exam: PRESENT: normal bowel sounds, soft Rectal exam: PRESENT: deferred Extremities exam: PRESENT: pedal edema, tenderness, other - Redness and swelling of both lower extremities Neurological exam: PRESENT: alert, awake, oriented to person, oriented to place , oriented to time, oriented to situation, CN II-XII grossly intact Psychiatric exam: PRESENT: appropriate affect, normal mood Skin exam: PRESENT: erythema Results Laboratory Results: 10/12/16 14:44 10/13/16 05:13 10/12/16 10/13/16 22:55 05:13 Sodium 134.2 L Potassium 4.5 D Chloride 98 Carbon Dioxide 23 Anion Gap 13 BUN 55 H Creatinine 1.46 H Est GFR ( Amer) 42 L Est GFR (Non-Af Amer) 35 L Glucose 121 H Calcium 8.3 L Urine Color STRAW Urine Appearance CLEAR Urine pH 5.0 Ur Specific [place] 1.008 Urine Protein NEGATIVE Urine Glucose (UA) NEGATIVE Urine Ketones NEGATIVE Urine Blood LARGE H Urine Nitrite NEGATIVE Ur Leukocyte Esterase NEGATIVE Urine WBC (Auto) 1 Urine RBC (Auto) 16 Assessment & Plan - Diagnosis (1) Anasarca Is this a current diagnosis for this admission?: YesPlan: Patient will be treated with furosemide infusion (2) Cellulitis of both lower extremities Is this a current diagnosis for this admission?: YesPlan: Treat with IV Clindamycicn (3) Cor pulmonale Is this a current diagnosis for this admission?: Yes (4) Diabetes mellitus type 2 in nonobese Is this a current diagnosis for this admission?: Yes
--- NOTE | 2016-10-13 18:55 | PDOC PROGRESS REPORT ---
Subjective Progress Note for:: 10/13/16 Subjective:: Patient was admitted yesterday because of anasarca associated with cellulitis of the lower extremities. She has a history of pulmonary hypertension, COPD and right heart failure She was treated with low-dose furosemide infusion Physical Exam Vital Signs: Temp Pulse Resp BP Pulse Ox 97.6 F 74 20 86/56 L 96 10/13/16 16:43 10/13/16 16:43 10/13/16 16:43 10/13/16 16:43 10/13/16 16:43 Intake & Output 10/12/16 10/13/16 10/14/16 06:59 06:59 06:59 Intake Total 508 425 Output Total 200 Balance 308 425 Weight 50.5 kg General appearance: PRESENT: no acute distress Eye exam: PRESENT: PERRLA Respiratory exam: PRESENT: clear to auscultation chip Cardiovascular exam: PRESENT: +S1, +S2 Extremities exam: PRESENT: other - She was lower extremity edema with cellulitis of the lower extremities Results Laboratory Results: 10/12/16 14:44 10/13/16 05:13 10/12/16 10/13/16 22:55 05:13 Sodium 134.2 L Potassium 4.5 D Chloride 98 Carbon Dioxide 23 Anion Gap 13 BUN 55 H Creatinine 1.46 H Est GFR ( Amer) 42 L Est GFR (Non-Af Amer) 35 L Glucose 121 H Calcium 8.3 L Urine Color STRAW Urine Appearance CLEAR Urine pH 5.0 Ur Specific [place] 1.008 Urine Protein NEGATIVE Urine Glucose (UA) NEGATIVE Urine Ketones NEGATIVE Urine Blood LARGE H Urine Nitrite NEGATIVE Ur Leukocyte Esterase NEGATIVE Urine WBC (Auto) 1 Urine RBC (Auto) 16 Assessment & Plan - Diagnosis (1) Anasarca Is this a current diagnosis for this admission?: YesPlan: Reduce the lasix infusion to 1mg/hr (2) Cellulitis of both lower extremities Is this a current diagnosis for this admission?: YesPlan: Continue IV clindamycin (3) Cor pulmonale Is this a current diagnosis for this admission?: Yes (4) Diabetes mellitus type 2 in nonobese Is this a current diagnosis for this admission?: Yes
[2016-10-14] MEDS: CLINDAMYCIN 600 MG/D5W RTU 600 MG/50 ML RTUPB IV SCH ×3 (05:54→21:11)
[2016-10-14] MEDS: ENOXAPARIN SODIUM INJ 30 MG/0.3 ML DISP.SYRIN SUBCUT SCH (11:04)
[2016-10-14 14:59] LABS: ABSOLUTE EOSINOPHILS # (AUTO) 0.1 10^3/uL (0.0-0.6); ABSOLUTE LYMPHOCYTES (AUTO) 0.9 10^3/uL (0.5-4.7); ABSOLUTE MONOCYTES (AUTO) 0.4 10^3/uL (0.1-1.4); ABSOLUTE NEUT (AUTO) 3.3 10^3/uL (1.7-8.2); BASOPHILS % (AUTO) 0.7 % (0-2); EOSINOPHILS % (AUTO) 1.5 % (0-6); HEMATOCRIT 33.1 % (36.0-47.0); HEMOGLOBIN 10.8 g/dL (12.0-15.5); HGB HCT DIFFERENCE -0.7; LYMPHOCYTES % (AUTO) 19.4 % (13-45); MEAN CORPUSCULAR HEMOGLOBIN 28.4 pg (27.0-33.4); MEAN CORPUSCULAR HGB CONC 32.8 g/dL (32.0-36.0); MEAN CORPUSCULAR VOLUME 87 fl (80-97); RED BLOOD COUNT 3.83 10^6/uL (3.72-5.28); SEGMENTED NEUTROPHILS % (AUTO) 70.4 % (42-78); WHITE BLOOD COUNT 4.7 10^3/uL (4.0-10.5)
[2016-10-14 15:13] LABS: ALANINE AMINOTRANSFERASE 27 U/L (9-52); ALBUMIN 3.1 g/dL (3.5-5.0); ALKALINE PHOSPHATASE 41 U/L (38-126); ANION GAP 9 (5-19); ASPARTATE AMINO TRANSFERASE 21 U/L (14-36); BILIRUBIN,DIRECT 0.3 mg/dL (0.0-0.4); BILIRUBIN,TOTAL 0.6 mg/dL (0.2-1.3); BLOOD UREA NITROGEN 48 mg/dL (7-20); CALCIUM 8.3 mg/dL (8.4-10.2); CARBON DIOXIDE 28 mmol/L (22-30); CHLORIDE 96 mmol/L (98-107); CREATININE RESULT 1.32 mg/dL (0.52-1.25); GLUCOSE 110 mg/dL (75-110); POTASSIUM 3.8 mmol/L (3.6-5.0); SODIUM 133.4 mmol/L (137-145); TOTAL PROTEIN 5.7 g/dL (6.3-8.2)
[2016-10-14 15:45] LABS: ANISOCYTOSIS 2+; BURR CELLS 2+; OVALOCYTES SLIGHT; POIKILOCYTOSIS 2+; POLYCHROMASIA SLIGHT; SCHISTOCYTES SLIGHT
[2016-10-14 15:48] LABS: ACANTHOCYTES 1+
[2016-10-14 15:49] LABS: TARGET CELLS 2+
[2016-10-15] MEDS: CLINDAMYCIN 600 MG/D5W RTU 600 MG/50 ML RTUPB IV SCH ×3 (05:09→21:35)
[2016-10-15] MEDS: ENOXAPARIN SODIUM INJ 30 MG/0.3 ML DISP.SYRIN SUBCUT SCH (09:36)
[2016-10-15] MEDS ORDERED: FUROSEMIDE 40 MG TABLET PO SCH (10:00)
[2016-10-15] MEDS ORDERED: DOPAMINE HCL/DEXTROSE 5%-WATER 800 MG/250 ML RTUINJ IV PRN (14:11)
--- NOTE | 2016-10-15 14:18 | PDOC PROGRESS REPORT ---
Subjective Progress Note for:: 10/15/16 Subjective:: Patient was seen by the bedside, there is still swelling/edema of both thighs. The blood pressure is low normal, she will need more IV furosemide infusion, she will need intravenous pressors to booster the blood pressure in order to administer the IV furosemide. Physical Exam Vital Signs: Temp Pulse Resp BP Pulse Ox 98.1 F 86 19 90/57 L 91 L 10/15/16 11:39 10/15/16 11:39 10/15/16 11:39 10/15/16 11:39 10/15/16 11:39 Intake & Output 10/14/16 10/15/16 10/16/16 06:59 06:59 06:59 Intake Total 757 2199 591 Output Total 750 2070 500 Balance 7 129 91 Weight 50 kg 50.1 kg General appearance: PRESENT: no acute distress Eye exam: PRESENT: PERRLA Respiratory exam: PRESENT: clear to auscultation chip Cardiovascular exam: PRESENT: +S1, +S2 GI/Abdominal exam: PRESENT: soft Extremities exam: PRESENT: pedal edema, other - There is redness swelling of both legs consistent with celluitis Neurological exam: PRESENT: alert Results Laboratory Results: 10/14/16 14:14 10/14/16 14:14 10/14/16 10/14/16 14:14 14:14 WBC 4.7 RBC 3.83 Hgb 10.8 L Hct 33.1 L MCV 87 MCH 28.4 MCHC 32.8 RDW 20.0 H Plt Count 247 Seg Neutrophils % 70.4 Lymphocytes % 19.4 Monocytes % 8.0 Eosinophils % 1.5 Basophils % 0.7 Absolute Neutrophils 3.3 Absolute Lymphocytes 0.9 Absolute Monocytes 0.4 Absolute Eosinophils 0.1 Absolute Basophils 0.0 Sodium 133.4 L Potassium 3.8 Chloride 96 L Carbon Dioxide 28 Anion Gap 9 BUN 48 H Creatinine 1.32 H Est GFR ( Amer) 47 L Est GFR (Non-Af Amer) 39 L Glucose 110 Calcium 8.3 L Total Bilirubin 0.6 AST 21 ALT 27 Alkaline Phosphatase 41 Total Protein 5.7 L Albumin 3.1 L 10/12/16 22:55 Clean Catch Midstream Urine Culture - Final NO GROWTH 2 DAYS Assessment & Plan - Diagnosis (1) Anasarca Is this a current diagnosis for this admission?: Yes (2) Cellulitis of both lower extremities Is this a current diagnosis for this admission?: Yes (3) Cor pulmonale Is this a current diagnosis for this admission?: Yes (4) Diabetes mellitus type 2 in nonobese Is this a current diagnosis for this admission?: Yes
--- NOTE | 2016-10-15 14:20 | PDOC PROGRESS REPORT ---
Subjective Progress Note for:: 10/14/16 Subjective:: She was seen by the bedside, she was admitted because of anasarca due to right heart failure Physical Exam Vital Signs: Temp Pulse Resp BP Pulse Ox 98.1 F 86 19 90/57 L 91 L 10/15/16 11:39 10/15/16 11:39 10/15/16 11:39 10/15/16 11:39 10/15/16 11:39 Intake & Output 10/14/16 10/15/16 10/16/16 06:59 06:59 06:59 Intake Total 757 2199 591 Output Total 750 2070 500 Balance 7 129 91 Weight 50 kg 50.1 kg General appearance: PRESENT: no acute distress Eye exam: PRESENT: PERRLA Respiratory exam: PRESENT: clear to auscultation chip Cardiovascular exam: PRESENT: +S1, +S2 GI/Abdominal exam: PRESENT: soft Neurological exam: PRESENT: alert Results Laboratory Results: 10/14/16 14:14 10/14/16 14:14 10/14/16 10/14/16 14:14 14:14 WBC 4.7 RBC 3.83 Hgb 10.8 L Hct 33.1 L MCV 87 MCH 28.4 MCHC 32.8 RDW 20.0 H Plt Count 247 Seg Neutrophils % 70.4 Lymphocytes % 19.4 Monocytes % 8.0 Eosinophils % 1.5 Basophils % 0.7 Absolute Neutrophils 3.3 Absolute Lymphocytes 0.9 Absolute Monocytes 0.4 Absolute Eosinophils 0.1 Absolute Basophils 0.0 Sodium 133.4 L Potassium 3.8 Chloride 96 L Carbon Dioxide 28 Anion Gap 9 BUN 48 H Creatinine 1.32 H Est GFR ( Amer) 47 L Est GFR (Non-Af Amer) 39 L Glucose 110 Calcium 8.3 L Total Bilirubin 0.6 AST 21 ALT 27 Alkaline Phosphatase 41 Total Protein 5.7 L Albumin 3.1 L 10/12/16 22:55 Clean Catch Midstream Urine Culture - Final NO GROWTH 2 DAYS Assessment & Plan - Diagnosis (1) Anasarca Is this a current diagnosis for this admission?: Yes (2) Cellulitis of both lower extremities Is this a current diagnosis for this admission?: Yes (3) Cor pulmonale Is this a current diagnosis for this admission?: Yes (4) Diabetes mellitus type 2 in nonobese Is this a current diagnosis for this admission?: Yes
[2016-10-15] MEDS ORDERED: DOPAMINE HCL 800 MG/D5W 250 ML IV PRN (14:27)
[2016-10-15 14:54] LABS: ABSOLUTE EOSINOPHILS # (AUTO) 0.1 10^3/uL (0.0-0.6); ABSOLUTE MONOCYTES (AUTO) 0.4 10^3/uL (0.1-1.4); BASOPHILS % (AUTO) 0.6 % (0-2); EOSINOPHILS % (AUTO) 1.3 % (0-6); HEMATOCRIT 34.1 % (36.0-47.0); HEMOGLOBIN 11.1 g/dL (12.0-15.5); HGB HCT DIFFERENCE -0.8; LYMPHOCYTES % (AUTO) 18.1 % (13-45); MEAN CORPUSCULAR HGB CONC 32.5 g/dL (32.0-36.0); MEAN CORPUSCULAR VOLUME 86 fl (80-97); RED BLOOD COUNT 3.96 10^6/uL (3.72-5.28); RED CELL DISTRIBUTION WIDTH 20.1 % (11.5-14.0); WHITE BLOOD COUNT 5.4 10^3/uL (4.0-10.5)
[2016-10-15] MEDS ORDERED: RIVAROXABAN 15 MG TABLET PO ONE (15:00)
[2016-10-15 15:14] LABS: ANION GAP 11 (5-19); BLOOD UREA NITROGEN 46 mg/dL (7-20); CALCIUM 8.5 mg/dL (8.4-10.2); CARBON DIOXIDE 28 mmol/L (22-30); CHLORIDE 96 mmol/L (98-107); CREATININE RESULT 1.12 mg/dL (0.52-1.25); GLUCOSE 156 mg/dL (75-110); POTASSIUM 3.7 mmol/L (3.6-5.0); SODIUM 135.1 mmol/L (137-145)
[2016-10-15 15:16] LABS: POIKILOCYTOSIS 2+; TARGET CELLS 2+
[2016-10-15 15:17] LABS: ANISOCYTOSIS 2+; HELMET CELLS SLIGHT; HYPOCHROMASIA SLIGHT; SCHISTOCYTES SLIGHT; TEAR DROP CELLS SLIGHT
[2016-10-15] MEDS: NORMAL SALINE 250 ML with FUROSEMIDE 250 MG IV PRN ×4 (16:10→16:23)
[2016-10-15] MEDS: METFORMIN HCL 500 MG TABLET PO SCH (17:40)
[2016-10-15] MEDS: ATORVASTATIN CALCIUM 10 MG TABLET PO SCH (17:40)
[2016-10-15] MEDS ORDERED: DEXTROSE 50%-WATER SYRINGE 25 GM/50 ML DOSE IV PRN (18:21)
[2016-10-15] MEDS ORDERED: GLUCAGON,HUMAN RECOMB 1 MG INJ IM PRN (18:21)
[2016-10-15] MEDS ORDERED: DEXTROSE 40% GEL 15 GM TUBE X 2 PO PRN (18:21)
[2016-10-15] MEDS ORDERED: DEXTROSE 50%-WATER SYRINGE 12.5 GM/25 ML DOSE IV PRN (18:21)
[2016-10-15] MEDS ORDERED: DEXTROSE 40% GEL 15 GM TUBE PO PRN (18:21)
[2016-10-15] MEDS ORDERED: INSULIN LISPRO 100 UNIT/ML 3 ML VIAL SUBCUT PRN (18:24)
[2016-10-16] MEDS: CLINDAMYCIN 600 MG/D5W RTU 600 MG/50 ML RTUPB IV SCH ×3 (06:08→21:03)
[2016-10-16] MEDS: RIVAROXABAN 15 MG TABLET PO SCH (10:45)
[2016-10-16] MEDS: METFORMIN HCL 500 MG TABLET PO SCH ×2 (10:45→18:07)
[2016-10-16 11:51] LABS: HEMATOCRIT 35.1 % (36.0-47.0); HEMOGLOBIN 11.4 g/dL (12.0-15.5); HGB HCT DIFFERENCE -0.9; MEAN CORPUSCULAR HEMOGLOBIN 28.1 pg (27.0-33.4); MEAN CORPUSCULAR HGB CONC 32.4 g/dL (32.0-36.0); MEAN CORPUSCULAR VOLUME 87 fl (80-97); RED BLOOD COUNT 4.05 10^6/uL (3.72-5.28); RED CELL DISTRIBUTION WIDTH 19.7 % (11.5-14.0); WHITE BLOOD COUNT 6.6 10^3/uL (4.0-10.5)
[2016-10-16 12:11] LABS: ANION GAP 12 (5-19); BLOOD UREA NITROGEN 41 mg/dL (7-20); CALCIUM 8.5 mg/dL (8.4-10.2); CARBON DIOXIDE 29 mmol/L (22-30); CHLORIDE 96 mmol/L (98-107); CREATININE RESULT 0.98 mg/dL (0.52-1.25); GLUCOSE 130 mg/dL (75-110); POTASSIUM 3.2 mmol/L (3.6-5.0); SODIUM 136.6 mmol/L (137-145)
[2016-10-16] MEDS: POTASSIUM CHLORIDE 10 MEQ TABLET.SA PO SCH ×2 (14:06→18:07)
--- NOTE | 2016-10-16 14:20 | PDOC PROGRESS REPORT ---
Subjective Progress Note for:: 10/16/16 Subjective:: She was seen by the bedside she has no new complaints today, the furosemide infusion rate was decreased to 2mg/hr from 5mg/hr because of low blood pressure Physical Exam Vital Signs: Temp Pulse Resp BP Pulse Ox 98.0 F 90 20 92/56 L 98 10/16/16 12:16 10/16/16 12:16 10/16/16 12:16 10/16/16 11:00 10/16/16 12:16 Intake & Output 10/15/16 10/16/16 10/17/16 06:59 06:59 06:59 Intake Total 2199 1058 100 Output Total 2070 2600 1150 Balance 129 -5122 -1050 Weight 50.1 kg 53 kg General appearance: PRESENT: no acute distress Eye exam: PRESENT: PERRLA Respiratory exam: PRESENT: crackles Cardiovascular exam: PRESENT: +S1, +S2 GI/Abdominal exam: PRESENT: soft Extremities exam: PRESENT: pedal edema Neurological exam: PRESENT: alert Results Laboratory Results: 10/16/16 11:39 10/16/16 11:39 10/15/16 10/15/16 10/16/16 14:33 14:33 11:39 WBC 5.4 6.6 RBC 3.96 4.05 Hgb 11.1 L 11.4 L Hct 34.1 L 35.1 L MCV 86 87 MCH 28.0 28.1 MCHC 32.5 32.4 RDW 20.1 H 19.7 H Plt Count 254 249 Seg Neutrophils % 73.0 Lymphocytes % 18.1 Monocytes % 7.0 Eosinophils % 1.3 Basophils % 0.6 Absolute Neutrophils 4.0 Absolute Lymphocytes 1.0 Absolute Monocytes 0.4 Absolute Eosinophils 0.1 Absolute Basophils 0.0 Sodium 135.1 L Potassium 3.7 Chloride 96 L Carbon Dioxide 28 Anion Gap 11 BUN 46 H Creatinine 1.12 Est GFR ( Amer) 57 L Est GFR (Non-Af Amer) 47 L Glucose 156 H Calcium 8.5 10/16/16 11:39 WBC RBC Hgb Hct MCV MCH MCHC RDW Plt Count Seg Neutrophils % Lymphocytes % Monocytes % Eosinophils % Basophils % Absolute Neutrophils Absolute Lymphocytes Absolute Monocytes Absolute Eosinophils Absolute Basophils Sodium 136.6 L Potassium 3.2 L Chloride 96 L Carbon Dioxide 29 Anion Gap 12 BUN 41 H Creatinine 0.98 Est GFR ( Amer) > 60 Est GFR (Non-Af Amer) 55 L Glucose 130 H Calcium 8.5 Assessment & Plan - Diagnosis (1) Anasarca Is this a current diagnosis for this admission?: YesPlan: She was treated with dopamine because the blood pressure was low and she could not receive intravenous furosemide, dopamine stabilized the blood pressure and she was able to receive furosemide infusion at 5 mg /h. (2) Cellulitis of both lower extremities Is this a current diagnosis for this admission?: YesPlan: The cellulitis is improved on intravenous clindamycin (3) Cor pulmonale Is this a current diagnosis for this admission?: Yes (4) Diabetes mellitus type 2 in nonobese Is this a current diagnosis for this admission?: Yes
[2016-10-16] MEDS: ATORVASTATIN CALCIUM 10 MG TABLET PO SCH (18:07)
[2016-10-16] MEDS: NORMAL SALINE 250 ML with FUROSEMIDE 250 MG IV PRN ×2 (19:36)
[2016-10-17] MEDS: CLINDAMYCIN 600 MG/D5W RTU 600 MG/50 ML RTUPB IV SCH ×3 (05:23→21:01)
[2016-10-17] MEDS: METFORMIN HCL 500 MG TABLET PO SCH ×2 (10:05→18:48)
[2016-10-17] MEDS: POTASSIUM CHLORIDE 10 MEQ TABLET.SA PO SCH (10:05)
[2016-10-17] MEDS: RIVAROXABAN 15 MG TABLET PO SCH (10:05)
[2016-10-17] MEDS ORDERED: PHARMACY COMMUNICATION ORDER MC SCH (18:00)
[2016-10-17] MEDS: NORMAL SALINE 250 ML with FUROSEMIDE 250 MG IV PRN ×2 (18:47)
[2016-10-17] MEDS: ATORVASTATIN CALCIUM 10 MG TABLET PO SCH (18:48)
--- NOTE | 2016-10-17 19:52 | PDOC DISCHARGE SUMMARY ---
General - Admit/Disc Date/PCP Admission Date/Primary Care Provider: 10/12/16 13:16 JONATAN LÓPEZ MD Discharge Date: 10/18/16 - Discharge Diagnosis (1) Anasarca Is this a current diagnosis for this admission?: Yes (2) Cellulitis of both lower extremities Is this a current diagnosis for this admission?: Yes (3) Cor pulmonale Is this a current diagnosis for this admission?: Yes (4) Diabetes mellitus type 2 in nonobese Is this a current diagnosis for this admission?: Yes - Additional Information Discharge Activity: Activity As Tolerated Home Medications: Atorvastatin Calcium [Lipitor 10 mg Tablet] 10 mg PO DAILY 06/15/16 Lisinopril/Hydrochlorothiazide [Zestoretic 20-12.5 mg Tablet] 1 tab PO Q12 06/15 Metformin HCl [Glucophage] 1,000 mg PO BID 06/15/16 Metoprolol Succinate [Toprol Xl 25 mg Tab.sr] 25 mg PO DAILY 06/15/16 Rivaroxaban [Xarelto 15 mg Tablet] 15 mg PO DAILY 06/15/16 Cyanocobalamin (Vitamin B-12) [Vitamin B-12 SL 1000 mcg Tablet] 1,000 mcg SL DAILY 10/12/16 Furosemide [Lasix] 40 mg PO DAILY 10/12/16 History of Present Illness History of Present Illness: AILYN ROMERO is a 76 year old female she has a history of severe pulmonary hypertension, right-sided heart failure, I saw her in the office last week she presented for evaluation of swelling both lower extremities. She was prescribed diuretic, furosemide and metolazone. She came to the office today with increased swelling of both lower extremities associated with cellulitis.. He was admitted directly from the office for evaluation and management of cellulitis and anasarca. Hospital Course Hospital Course: Patient was admitted because of anasarca due to right heart failure and severe pulmonary hypertension. She also had lower extremity celluitis . She was treated with intravenous furosemide infusion, there was associated low blood pressure and she was treated with intravenous dopamine to stabilize the blood pressure. She also had IV clindamycin for the celluitis of the lower extremities. There is improvement of the anasarca Physical Exam Vital Signs: Temp Pulse Resp BP Pulse Ox 97.3 F 94 18 103/66 92 10/17/16 16:00 06/12/17 19:35 10/17/16 16:00 10/17/16 16:00 10/17/16 16:00 Intake & Output 10/16/16 10/17/16 10/18/16 06:59 06:59 06:59 Intake Total 1058 1634 1035 Output Total 2600 1800 100 Balance -1542 -166 935 Weight 53 kg 49 kg General appearance: PRESENT: no acute distress Eye exam: PRESENT: PERRLA Respiratory exam: PRESENT: clear to auscultation chip Cardiovascular exam: PRESENT: +S1, +S2 GI/Abdominal exam: PRESENT: soft Extremities exam: PRESENT: pedal edema Neurological exam: PRESENT: alert Results Laboratory Results: 10/16/16 11:39 10/16/16 11:39 10/12/16 16:02 Blood Blood Culture - Final NO GROWTH IN 5 DAYS 10/12/16 14:44 Blood Blood Culture - Final NO GROWTH IN 5 DAYS
[2016-10-17 20:49] LABS: ALANINE AMINOTRANSFERASE 33 U/L (9-52); ALBUMIN 3.4 g/dL (3.5-5.0); ALKALINE PHOSPHATASE 47 U/L (38-126); ANION GAP 12 (5-19); ASPARTATE AMINO TRANSFERASE 35 U/L (14-36); BILIRUBIN,DIRECT 0.5 mg/dL (0.0-0.4); BLOOD UREA NITROGEN 38 mg/dL (7-20); CALCIUM 8.5 mg/dL (8.4-10.2); CARBON DIOXIDE 26 mmol/L (22-30); CHLORIDE 92 mmol/L (98-107); CREATININE RESULT 0.97 mg/dL (0.52-1.25); GLUCOSE 180 mg/dL (75-110); POTASSIUM 5.1 mmol/L (3.6-5.0); SODIUM 130.1 mmol/L (137-145); TOTAL PROTEIN 6.2 g/dL (6.3-8.2)
[2016-10-18] MEDS: CLINDAMYCIN 600 MG/D5W RTU 600 MG/50 ML RTUPB IV SCH (05:04)
[2016-10-18 11:19] VITALS: BP 103/66
[2016-10-18] MEDS: POTASSIUM CHLORIDE 10 MEQ TABLET.SA PO SCH (11:27)
[2016-10-18] MEDS: METFORMIN HCL 500 MG TABLET PO SCH (11:28)
[2016-10-18] MEDS: RIVAROXABAN 15 MG TABLET PO SCH (11:28)
== END 2016-10-18 13:55 | disposition home or self-care (01) | DRG 603 ==
LOC: 3W 13:16
PROVIDERS: ADMIT Internal Medicine; ATTEND Internal Medicine
DX: L03.116 Cellulitis of left lower limb (principal); Z68.1 Body mass index [BMI] 19.9 or less, adult; R63.6 Underweight; L03.115 Cellulitis of right lower limb; E11.9 Type 2 diabetes mellitus without complications; I27.2 Other secondary pulmonary hypertension; I11.0 Hypertensive heart disease with heart failure; I50.9 Heart failure, unspecified; I48.91 Unspecified atrial fibrillation; E78.5 Hyperlipidemia, unspecified; J44.9 Chronic obstructive pulmonary disease, unspecified; M19.90 Unspecified osteoarthritis, unspecified site; Z87.891 Personal history of nicotine dependence; Z79.899 Other long term (current) drug therapy; Z88.8 Allergy status to other drugs, medicaments and biological substances; Z91.013 Allergy to seafood
CPT/HCPCS: 36415; 80048; 80053; 80076; 81001; 82962; 83036; 85025; 85027; 87040; 87086; J1265; J1650; J1815; J1940; J7050

== ENCOUNTER 2016-10-25 16:06 | Inpatient (IN) | payer MEDICARE, OTHER ==
[2016-10-25] MEDS: NORMAL SALINE 250 ML with FUROSEMIDE 250 MG IV PRN ×2 (17:47)
[2016-10-25 18:06] LABS: ABSOLUTE BASOPHILS # (AUTO) 0.1 10^3/uL (0.0-0.2); ABSOLUTE LYMPHOCYTES (AUTO) 1.1 10^3/uL (0.5-4.7); ABSOLUTE MONOCYTES (AUTO) 0.4 10^3/uL (0.1-1.4); ABSOLUTE NEUT (AUTO) 3.5 10^3/uL (1.7-8.2); EOSINOPHILS % (AUTO) 0.5 % (0-6); HEMATOCRIT 31.2 % (36.0-47.0); HEMOGLOBIN 9.9 g/dL (12.0-15.5); HGB HCT DIFFERENCE -1.5; LYMPHOCYTES % (AUTO) 22.2 % (13-45); MEAN CORPUSCULAR HEMOGLOBIN 27.8 pg (27.0-33.4); MEAN CORPUSCULAR HGB CONC 31.6 g/dL (32.0-36.0); MEAN CORPUSCULAR VOLUME 88 fl (80-97); MONOCYTES % (AUTO) 7.4 % (3-13); RED BLOOD COUNT 3.55 10^6/uL (3.72-5.28); RED CELL DISTRIBUTION WIDTH 18.9 % (11.5-14.0); SEGMENTED NEUTROPHILS % (AUTO) 68.9 % (42-78); WHITE BLOOD COUNT 5.1 10^3/uL (4.0-10.5)
[2016-10-25 18:31] LABS: ALANINE AMINOTRANSFERASE 50 U/L (9-52); ALBUMIN 3.4 g/dL (3.5-5.0); ALKALINE PHOSPHATASE 56 U/L (38-126); ANION GAP 12 (5-19); ASPARTATE AMINO TRANSFERASE 31 U/L (14-36); BILIRUBIN,DIRECT 0.3 mg/dL (0.0-0.4); BILIRUBIN,TOTAL 0.7 mg/dL (0.2-1.3); BLOOD UREA NITROGEN 47 mg/dL (7-20); CALCIUM 8.9 mg/dL (8.4-10.2); CARBON DIOXIDE 26 mmol/L (22-30); CHLORIDE 95 mmol/L (98-107); CREATININE RESULT 1.09 mg/dL (0.52-1.25); GLUCOSE 72 mg/dL (75-110); POTASSIUM 3.9 mmol/L (3.6-5.0)
--- NOTE | 2016-10-25 18:50 | RADIOLOGY REPORT (SQ) ---
EXAM DESCRIPTION: CHEST SINGLE VIEW COMPLETED DATE/TIME: 10/25/2016 6:40 pm REASON FOR STUDY: heart failure COMPARISON: 06/15/2016 EXAM PARAMETERS: NUMBER OF VIEWS: One view. TECHNIQUE: Single frontal radiographic view of the chest acquired. RADIATION DOSE: NA LIMITATIONS: None. FINDINGS: LUNGS AND PLEURA: There is increased opacification the left retrocardiac region either rep resenting atelectasis or pneumonia. MEDIASTINUM AND HILAR STRUCTURES: No masses. Contour normal. HEART AND VASCULAR STRUCTURES: Heart remains enlarged. There is no failure. BONES: No acute findings. HARDWARE: None in the chest. OTHER: No other significant finding. IMPRESSION: Left retrocardiac airspace disease either atelectasis or pneumonia. Cardiomegaly unchan ged. TECHNICAL DOCUMENTATION: JOB ID: [id number]
--- NOTE | 2016-10-25 19:58 | PDOC CONSULTATION ---
Consultation Consult Date: 10/25/16 Attending physician:: JONATAN LÓPEZ Consult reason:: Congestive heart failure History of Present Illness Admission Date/PCP: 10/25/16 16:06 JONATAN LÓPEZ MD Patient complains of: Leg edema History of Present Illness: AILYN ROMERO is a 76 year old female who was admitted through the office with progressive leg swelling and some shortness of breath. Patient has history of congestive heart failure. Previous echocardiogram had shown mainly right-sided heart failure with enlarged right ventricle and also some diastolic dysfunction. Patient on questioning denied any chest pain. She denied any recent sustained palpitations, syncope, near syncope. I been asked to help with management of CHF. Patient was just discharged from this hospital on October 12, 2016 she was admitted and managed for anasarca. 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 Oral furosemide was not noted to be effective in the mobilization of the fluid from the leg and the abdominal wall, therefore patient was admitted for intravenous Lasix. The last time she was in the hospital she was treated with furosemide infusion she also had intravenous vasopressor, dopamine she has underlining chronic obstructive pulmonary disease with cor pulmonale. Patient is not a good historian. Patient has just been noted to have increasing pedal edema and also some shortness of breath with failed outpatient management. Patient denied any other significant symptoms. Past Medical History Cardiac Medical History: Reports: Atrial Fibrillation - Severe pulmonary hypertension, right heart failure, Hyperlipidema, Hypertension Denies: Congestive Heart Failure, Coronary Artery Disease, Myocardial Infarction, Peripheral Vascular Disease, Heart Murmur Pulmonary Medical History: Reports: Chronic Obstructive Pulmonary Disease (COPD) Denies: Sleep Apnea, Tuberculosis Endocrine Medical History: Reports: Diabetes Mellitus Type 2 Denies: Hyperthyroidism, Hypothyroidism Musculoskeltal Medical History: Reports: Arthritis Denies: Fibromyalgia Psychiatric Medical History: Denies: Depression Past Surgical History Past Surgical History: Denies: Amputation, Pacemaker Social History Information Source: Patient Smoking Status: Former Smoker Frequency of Alcohol Use: None Hx Recreational Drug Use: No Hx Prescription Drug Abuse: No - Advance Directive Resuscitation Status: Full Code Family History Family History: Reviewed & Not Pertinent Parental Family History Reviewed: Yes Children Family History Reviewed: Yes Sibling(s) Family History Reviewed.: Yes Medication/Allergy Home Medications: Atorvastatin Calcium [Lipitor 10 mg Tablet] 10 mg PO DAILY 06/15/16 Lisinopril/Hydrochlorothiazide [Zestoretic 20-12.5 mg Tablet] 1 tab PO Q12 06/15 Metformin HCl [Glucophage] 1,000 mg PO BID 06/15/16 Metoprolol Succinate [Toprol Xl 25 mg Tab.sr] 25 mg PO DAILY 06/15/16 Rivaroxaban [Xarelto 15 mg Tablet] 15 mg PO DAILY 06/15/16 Cyanocobalamin (Vitamin B-12) [Vitamin B-12 SL 1000 mcg Tablet] 1,000 mcg SL DAILY 10/12/16 Furosemide [Lasix] 40 mg PO DAILY 10/12/16 Allergies/Adverse Reactions: iodine [Iodine] Allergy (Unknown, Verified 04/01/12 14:41) seafood Allergy (Unknown, Uncoded 04/01/12 14:41) Anaphylaxis Review of Systems Review of Systems: Please see history of present illness and past medical history as wall. Constitutional: No fever or chills reported. General fatigue reported. Head : No recent chronic headaches, recent head injury. Eyes: No recent eye pain, diplopia, redness, discharge, acute visual changes. Ears: No recent chronic ear pain, acute hearing loss, ear discharge. Oral cavity: No recent ulcerations, bleeding, oral cavity discomfort. Neck: No recent acute neck pain reported. Hematologic: No recent easy bruising or bleeding or hematologic malignancy reported. Lymphatic: No recent lymphatic malignancy, chronic lymphadenopathy reported yet Cardiovascular system review: See history of present illness. Increasing leg edema and shortness of breath reported. No sustained palpitations, syncope, near syncope. Respiratory system review: No recent chronic cough, hemoptysis, blood clots in the lungs reported. Hortness of breath on exertion Gastrointestinal system review: Negative for any recent acute or chronic abdominal pain, hematemesis, melena, recent change in bowel habits. Genitourinary system review: No recent acute or chronic hematuria, flank pain, UTI etc. reported. Skin system review: Negative for any recent abnormal bruising, no rash, no pruritus reported. Neurologic: No prior history of strokes, mini strokes, seizure disorder. History of dementia noted. Psychologic: No history of major psychosis or major depression reported. History of dementia noted. Musculoskeletal: Minor aches and pains reported. No acute joint swelling reported. Endocrine: No recent polyuria, polydipsia, recent heat or cold intolerance. Physical Exam Vital Signs: Temp Pulse Resp BP Pulse Ox 97.6 F 76 16 108/68 92 10/25/16 18:05 10/25/16 18:05 10/25/16 18:05 10/25/16 18:05 10/25/16 18:05 Intake & Output 10/24/16 10/25/16 10/26/16 06:59 06:59 06:59 Intake Total 244 Balance 244 Weight 47.7 kg Exam: GENERAL: well-nourished and in no acute distress. Alert and oriented x3 HEAD: Atraumatic, normocephalic. EYES: Pupils equal round and reactive to light, extraocular movements intact, sclera anicteric, conjunctiva are normal. ENT: TMs normal, nares patent, oropharynx clear without exudates. Moist mucous membranes. No oral ulcerations or bleeding gums noted NECK: supple without lymphadenopathy. Trachea is central. No cervical or axillary lymphadenopathy noted. Carotids are 2+, JVD elevated to the angle of jaw LUNGS: Respiration seems nonlabored, no significant accessory muscle action noted. Breath sounds clear to auscultation bilaterally and equal noted. No wheezes rales or rhonchi noted. No significant dullness noted on percussion. CHEST: Palpation of the chest wall shows no significant chest wall tenderness. No other significant abnormalities noted. 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 ABDOMEN: Soft, no significant tenderness appreciated, normoactive bowel sounds. No guarding, no rebound. No rigidity noted . No masses appreciated. EXTREMITIES: Pedal pulses are 1-2+, no calf tenderness noted. No clubbing or cyanosis. 2-3+ + pedal edema noted NEUROLOGICAL: Focused neurological exam showed no significant neurologic deficit. Normal speech, no focal weakness appreciated. PSYCH: Normal mood, normal affect. Judgment and insight within normal limits. SKIN: No significant ecchymosis, rash, ulcerations or signs of pruritus noted. MUSCULOSKELETAL EXAM: No significant joint swelling noted. Results Laboratory Results: 10/25/16 17:51 10/25/16 17:57 10/25/16 10/25/16 17:51 17:57 WBC 5.1 RBC 3.55 L Hgb 9.9 L Hct 31.2 L MCV 88 MCH 27.8 MCHC 31.6 L RDW 18.9 H Plt Count 278 Seg Neutrophils % 68.9 Lymphocytes % 22.2 Monocytes % 7.4 Eosinophils % 0.5 Basophils % 1.0 Absolute Neutrophils 3.5 Absolute Lymphocytes 1.1 Absolute Monocytes 0.4 Absolute Eosinophils 0.0 Absolute Basophils 0.1 Sodium 133.0 L Potassium 3.9 Chloride 95 L Carbon Dioxide 26 Anion Gap 12 BUN 47 H Creatinine 1.09 Est GFR ( Amer) 59 L Est GFR (Non-Af Amer) 49 L Glucose 72 L Calcium 8.9 Total Bilirubin 0.7 AST 31 ALT 50 Alkaline Phosphatase 56 Total Protein 6.0 L Albumin 3.4 L EKG Comments: Twelve-lead EKG shows sinus rhythm, right ventricular enlargement, nonspecific T -wave inversion. Impressions: Chest X-Ray 10/25/16 00:00 IMPRESSION: Left retrocardiac airspace disease either atelectasis or pneumonia. Cardiomegaly unchanged. Assessment & Plan - Diagnosis (1) Anasarca Is this a current diagnosis for this admission?: Yes (2) Right heart failure with reduced right ventricular function Is this a current diagnosis for this admission?: Yes (3) Cor pulmonale Is this a current diagnosis for this admission?: Yes (4) COPD (chronic obstructive pulmonary disease) Qualifiers: COPD type: unspecified COPD Qualified Code(s): J44.9 - Chronic obstructive pulmonary disease, unspecified Is this a current diagnosis for this admission?: Yes (5) Hypotension Qualifiers: Hypotension type: unspecified hypotension type Qualified Code(s): I95.9 - Hypotension, unspecified Is this a current diagnosis for this admission?: Yes (6) Diabetes mellitus type 2 in nonobese Is this a current diagnosis for this admission?: Yes - Notes Notes: Recommend 2D echo for further evaluation of RV pressure. If patient has severe tricuspid regurgitation, then may need to consider tricuspid valve repair replacement etc. Continue with IV Lasix. Consider adding spironolactone to the regimen. If hypotension occurs, consider Midodrin p.o. recommend switching to Demadex as an outpatient. 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 Twelve-lead EKG, these were reviewed. Chest x-ray: Results reviewed. Shows significant cardiomegaly. Previous CTA reviewed. It showed massive enlargement of the right atrium and also significant enlargement of the right ventricle. Medications: These were reviewed. Labs: These were reviewed. Treatment/care plan: This was reviewed and discussed with involved personnel in the care of this patient and patient. Anasarca: Related to severe right heart failure. Continue IV diuretics. Right heart failure with RV systolic dysfunction: Continue with IV diuretics, maintain good oxygenation. Cor pulmonale: Treat underlying pulmonary condition. COPD: Continue current management plans. Arterial hypotension: Recommend vasopressors as needed. Diabetes: Currently stable. Being managed by hospitalist. - Time Time Spent: 50 to 70 Minutes - CODE STATUS was discussed, patient remains full code. Multiple medical problems were addressed. More than 50% of the time spent coordinating care, discussing management plans with involved caregivers. Management plans discussed with involved personnels. Medical decision making was of moderate to high complexity, patient's has multiple comorbidities. Medications reviewed and adjusted accordingly: Yes
[2016-10-25] MEDS ORDERED: DOPAMINE HCL/DEXTROSE 5%-WATER 800 MG/250 ML RTUINJ IV ONE (20:09)
[2016-10-25] MEDS ORDERED: (PENDING PHARMACY ID) (Lisinopril/Hydrochlorothiazide [Zestoretic 20-12.5 Mg Tablet] 1 TAB PO SCH (22:00)
[2016-10-25] MEDS: DOPAMINE HCL 800 MG/D5W 250 ML IV PRN (22:20)
[2016-10-26 06:08] LABS: ANION GAP 12 (5-19); BLOOD UREA NITROGEN 47 mg/dL (7-20); CALCIUM 9.1 mg/dL (8.4-10.2); CARBON DIOXIDE 30 mmol/L (22-30); CHLORIDE 94 mmol/L (98-107); CREATININE RESULT 1.13 mg/dL (0.52-1.25); GLUCOSE 98 mg/dL (75-110); POTASSIUM 3.7 mmol/L (3.6-5.0); SODIUM 135.7 mmol/L (137-145)
--- NOTE | 2016-10-26 08:39 | EKG REPORT ---
SEVERITY:- ABNORMAL ECG - SINUS RHYTHM PROBABLE LEFT ATRIAL ABNORMALITY PROBABLE ANTEROSEPTAL INFARCT, AGE INDETERM : Confirmed by: Whit Alberts MD 26-Oct-2016 08:39:08
[2016-10-26] MEDS: METFORMIN HCL 500 MG TABLET PO SCH ×2 (09:02→18:06)
[2016-10-26] MEDS: METOPROLOL SUCCINATE 25 MG TAB.SR.24H PO SCH (09:02)
[2016-10-26] MEDS: ATORVASTATIN CALCIUM 10 MG TABLET PO SCH (09:03)
[2016-10-26] MEDS: CYANOCOBALAMIN (VITAMIN B-12) 1,000 MCG TABLET PO SCH (09:03)
[2016-10-26] MEDS: RIVAROXABAN 15 MG TABLET PO SCH (09:04)
[2016-10-26] MEDS: LISINOPRIL 10 MG TABLET PO SCH (09:08)
[2016-10-26] MEDS: HYDROCHLOROTHIAZIDE 12.5 MG CAPSULE PO SCH (09:08)
--- NOTE | 2016-10-26 16:15 | PDOC H&P ---
History of Present Illness Admission Date/PCP: 10/26/16 01:16 JONATAN LÓPEZ MD History of Present Illness: Patient is a 76-year-old female with multiple comorbid conditions ,right ventricular heart failure, cor pulmonale, she was just discharged from this hospital on October 12, 2016 she was admitted and managed for anasarca,Since she was discharged she has had many office visit because of nonresponsive anasarca involving the extremities, the edema of the thigh is extremely tenacious affecting the abdominal wall. The oral furosemide is not effective in the mobilization of the fluid from the leg and the abdominal wall, the other problem with this patient is that she is hypotensive, the last time she was in the hospital she was treated with furosemide infusion she also had intravenous vasopressor, dopamine she has underlining chronic obstructive pulmonary disease with cor pulmonale. Compression stockings is not effective either. She is admitted again to the hospital for management, consultation will be requested from cardiology Past Medical History Cardiac Medical History: Reports: Atrial Fibrillation - Severe pulmonary hypertension, right heart failure, Hyperlipidema, Hypertension, Other - Right heart failure with cor pulmonale Pulmonary Medical History: Reports: Chronic Obstructive Pulmonary Disease (COPD) Endocrine Medical History: Reports: Diabetes Mellitus Type 2 Musculoskeltal Medical History: Reports: Arthritis Social History Smoking Status: Former Smoker Frequency of Alcohol Use: None Hx Recreational Drug Use: No Hx Prescription Drug Abuse: No - Advance Directive Resuscitation Status: Full Code Family History Family History: Reviewed & Not Pertinent Parental Family History Reviewed: Yes Children Family History Reviewed: Yes Sibling(s) Family History Reviewed.: Yes Medication/Allergy Home Medications: Atorvastatin Calcium [Lipitor 10 mg Tablet] 10 mg PO DAILY 06/15/16 Lisinopril/Hydrochlorothiazide [Zestoretic 20-12.5 mg Tablet] 1 tab PO Q12 06/15 Metformin HCl [Glucophage] 1,000 mg PO BID 06/15/16 Metoprolol Succinate [Toprol Xl 25 mg Tab.sr] 25 mg PO DAILY 06/15/16 Rivaroxaban [Xarelto 15 mg Tablet] 15 mg PO DAILY 06/15/16 Cyanocobalamin (Vitamin B-12) [Vitamin B-12 SL 1000 mcg Tablet] 1,000 mcg SL DAILY 10/12/16 Furosemide [Lasix] 40 mg PO DAILY 10/12/16 Allergies/Adverse Reactions: iodine [Iodine] Allergy (Unknown, Verified 04/01/12 14:41) seafood Allergy (Unknown, Uncoded 04/01/12 14:41) Anaphylaxis Review of Systems Constitutional: PRESENT: fatigue, weight gain Eyes: ABSENT: visual disturbances Ears: ABSENT: hearing changes Cardiovascular: PRESENT: edema Respiratory: ABSENT: cough, hemoptysis Gastrointestinal: ABSENT: abdominal pain, constipation, diarrhea, hematemesis, hematochezia, nausea, vomiting Genitourinary: ABSENT: dysuria, hematuria Musculoskeletal: ABSENT: joint swelling Integumentary: ABSENT: rash, wounds Neurological: ABSENT: abnormal gait, abnormal speech, confusion, dizziness, focal weakness, syncope Psychiatric: ABSENT: anxiety, depression, homidical ideation, suicidal ideation Endocrine: ABSENT: cold intolerance, heat intolerance, menstrual abnormalities, polydipsia, polyuria Hematologic/Lymphatic: ABSENT: easy bleeding, easy bruising, lymphadenopathy Physical Exam Vital Signs: Temp Pulse Resp BP Pulse Ox 98.6 F 82 17 83/52 L 98 10/26/16 13:06 10/26/16 15:00 10/26/16 13:06 10/26/16 15:00 10/26/16 13:06 Intake & Output 10/25/16 10/26/16 10/27/16 06:59 06:59 06:59 Intake Total 433 480 Output Total 2750 1250 Balance -2317 -770 Weight 47.7 kg General appearance: PRESENT: mild distress Head exam: PRESENT: atraumatic, normocephalic Eye exam: PRESENT: PERRLA. ABSENT: scleral icterus Ear exam: PRESENT: normal external ear exam Mouth exam: PRESENT: moist, tongue midline Neck exam: PRESENT: full ROM Respiratory exam: PRESENT: rhonchi Cardiovascular exam: PRESENT: RRR, +S1, +S2 Vascular exam: PRESENT: normal capillary refill GI/Abdominal exam: PRESENT: firm - Abdominal wall edema, normal bowel sounds, soft Rectal exam: PRESENT: deferred Extremities exam: PRESENT: pedal edema Neurological exam: PRESENT: alert, CN II-XII grossly intact Skin exam: PRESENT: dry, intact, warm Results Laboratory Results: 10/25/16 17:51 10/26/16 05:09 10/25/16 10/25/16 10/26/16 17:51 17:57 05:09 WBC 5.1 RBC 3.55 L Hgb 9.9 L Hct 31.2 L MCV 88 MCH 27.8 MCHC 31.6 L RDW 18.9 H Plt Count 278 Seg Neutrophils % 68.9 Lymphocytes % 22.2 Monocytes % 7.4 Eosinophils % 0.5 Basophils % 1.0 Absolute Neutrophils 3.5 Absolute Lymphocytes 1.1 Absolute Monocytes 0.4 Absolute Eosinophils 0.0 Absolute Basophils 0.1 Sodium 133.0 L 135.7 L Potassium 3.9 3.7 Chloride 95 L 94 L Carbon Dioxide 26 30 Anion Gap 12 12 BUN 47 H 47 H Creatinine 1.09 1.13 Est GFR ( Amer) 59 L 56 L Est GFR (Non-Af Amer) 49 L 47 L Glucose 72 L 98 Calcium 8.9 9.1 Total Bilirubin 0.7 AST 31 ALT 50 Alkaline Phosphatase 56 Total Protein 6.0 L Albumin 3.4 L 10/25/16 17:57 NT-Pro-B Natriuret Pep [id number] H Impressions: Chest X-Ray 10/25/16 00:00 IMPRESSION: Left retrocardiac airspace disease either atelectasis or pneumonia. Cardiomegaly unchanged. Assessment & Plan - Diagnosis (1) Anasarca Is this a current diagnosis for this admission?: Yes (2) Body mass index (BMI) 19 or less, adult Is this a current diagnosis for this admission?: Yes (3) Chronic atrial fibrillation Is this a current diagnosis for this admission?: Yes (4) Cor pulmonale Is this a current diagnosis for this admission?: Yes (5) Diabetes mellitus type 2 in nonobese Is this a current diagnosis for this admission?: Yes (6) Right heart failure with reduced right ventricular function Is this a current diagnosis for this admission?: Yes (7) Hypotension Qualifiers: Hypotension type: unspecified hypotension type Qualified Code(s): I95.9 - Hypotension, unspecified Is this a current diagnosis for this admission?: YesPlan: She has hypertension associated with cor pulmonale, right heart failure with anasarca, she is admitted for management to be started on furosemide infusion, dopamine infusion, overall prognosis is very poor in this patient.
--- NOTE | 2016-10-26 17:01 | PDOC PROGRESS REPORT ---
Subjective Progress Note for:: 10/26/16 Subjective:: She was seen by the bedside, she was admitted yesterday for the management of anasarca, she does respond to IV furosemide Physical Exam Vital Signs: Temp Pulse Resp BP Pulse Ox 98.6 F 86 17 85/53 L 98 10/26/16 13:06 10/26/16 16:00 10/26/16 13:06 10/26/16 16:00 10/26/16 13:06 Intake & Output 10/25/16 10/26/16 10/27/16 06:59 06:59 06:59 Intake Total 433 480 Output Total 2750 1250 Balance -2317 -770 Weight 47.7 kg General appearance: PRESENT: no acute distress Eye exam: PRESENT: PERRLA Respiratory exam: PRESENT: clear to auscultation chip Cardiovascular exam: PRESENT: +S1, +S2 GI/Abdominal exam: PRESENT: soft Extremities exam: PRESENT: pedal edema Results Laboratory Results: 10/25/16 17:51 10/26/16 05:09 10/25/16 10/25/16 10/26/16 17:51 17:57 05:09 WBC 5.1 RBC 3.55 L Hgb 9.9 L Hct 31.2 L MCV 88 MCH 27.8 MCHC 31.6 L RDW 18.9 H Plt Count 278 Seg Neutrophils % 68.9 Lymphocytes % 22.2 Monocytes % 7.4 Eosinophils % 0.5 Basophils % 1.0 Absolute Neutrophils 3.5 Absolute Lymphocytes 1.1 Absolute Monocytes 0.4 Absolute Eosinophils 0.0 Absolute Basophils 0.1 Sodium 133.0 L 135.7 L Potassium 3.9 3.7 Chloride 95 L 94 L Carbon Dioxide 26 30 Anion Gap 12 12 BUN 47 H 47 H Creatinine 1.09 1.13 Est GFR ( Amer) 59 L 56 L Est GFR (Non-Af Amer) 49 L 47 L Glucose 72 L 98 Calcium 8.9 9.1 Total Bilirubin 0.7 AST 31 ALT 50 Alkaline Phosphatase 56 Total Protein 6.0 L Albumin 3.4 L 10/25/16 17:57 NT-Pro-B Natriuret Pep [id number] H Impressions: Chest X-Ray 10/25/16 00:00 IMPRESSION: Left retrocardiac airspace disease either atelectasis or pneumonia. Cardiomegaly unchanged. Assessment & Plan - Diagnosis (1) Anasarca Is this a current diagnosis for this admission?: Yes (2) Body mass index (BMI) 19 or less, adult Is this a current diagnosis for this admission?: Yes (3) Chronic atrial fibrillation Is this a current diagnosis for this admission?: Yes (4) Cor pulmonale Is this a current diagnosis for this admission?: Yes (5) Diabetes mellitus type 2 in nonobese Is this a current diagnosis for this admission?: Yes (6) Right heart failure with reduced right ventricular function Is this a current diagnosis for this admission?: Yes (7) Hypotension Qualifiers: Hypotension type: unspecified hypotension type Qualified Code(s): I95.9 - Hypotension, unspecified Is this a current diagnosis for this admission?: Yes - Plan Summary Plan Summary: She will continue furosemide infusion, dopamaine infusion
[2016-10-26] MEDS: NORMAL SALINE 250 ML with FUROSEMIDE 250 MG IV PRN ×2 (18:08)
[2016-10-26 22:16] LABS: URINE CREATININE 36.2 mg/dL (15-278); URINE PROTEIN 9.7 mg/dL (<12)
[2016-10-27] MEDS: DOPAMINE HCL 800 MG/D5W 250 ML IV PRN (03:05)
[2016-10-27 06:30] LABS: ANION GAP 13 (5-19); BLOOD UREA NITROGEN 44 mg/dL (7-20); CALCIUM 8.7 mg/dL (8.4-10.2); CARBON DIOXIDE 29 mmol/L (22-30); CHLORIDE 92 mmol/L (98-107); CREATININE RESULT 1.09 mg/dL (0.52-1.25); GLUCOSE 112 mg/dL (75-110); POTASSIUM 3.8 mmol/L (3.6-5.0); SODIUM 134.3 mmol/L (137-145)
[2016-10-27] MEDS ORDERED: ACETAMINOPHEN 325 MG TABLET PO PRN (08:25)
[2016-10-27] MEDS: METFORMIN HCL 500 MG TABLET PO SCH ×2 (08:37→17:43)
--- NOTE | 2016-10-27 08:58 | XCELERA REPORT ---
[address] [address] Transthoracic Echocardiogram Report Name: AILYN ROMERO Age: 76 yrs Gender: Female : 1940 Patient Status: Inpatient Patient Location: [id number]\S\327\S\A Study Date: 10/26/2016 02:12 PM Weight: 105 lb Procedure: A complete two-dimensional transthoracic echocardiogram was performed (2D, M-mode, spectral and color flow Doppler). The study was technically adequate with some images being suboptimal in quality. Reason For Study: heart failure Ordering Physician: JONATAN LÓPEZ Performed By: Zayda [place] Interpretation Summary The left ventricular ejection fraction is normal. The left ventricle is grossly normal size. There is normal left ventricular wall thickness. Doppler measurements suggest pseudonormalized left ventricular relaxation, which is associated with grade II/IV or mild to moderate diastolic dysfunction Wall motion cannot be accurately commented on, but no definite regional wall motion abnormalities noted. The right ventricle is severely dilated. The right ventricular systolic function is moderate to severely reduced. The right ventricle appears to be hypertrophied The left atrial size is normal. The right atrium is severely dilated. There is a trace to mild amount of mitral regurgitation There is no mitral valve stenosis. There is a mild amount of aortic regurgitation There is no aortic valve stenosis There is a moderate amount of tricuspid regurgitation There is servere pulmonary hypertension by echo Right ventricular systolic pressure is estimated to be elevated at >60mmHg. Minimal pericardial effusion. MMode/2D Measurements \T\ Calculations RVDd: 3.9 cm LVIDd: 3.3 cm FS: 40.6 % Ao root diam: 3.2 cm IVSd: 0.83 cm LVIDs: 2.0 cm EDV(Teich): 44.2 ml Ao root area: 7.9 cm2 LVPWd: 0.90 cm ESV(Teich): 12.1 ml EF(Teich): 72.6 % Doppler Measurements \T\ Calculations MV E max jose: Ao V2 max: AI max jose: LV V1 max P.4 cm/sec 117.7 cm/sec 333.7 cm/sec 1.9 mmHg MV A max jose: Ao max P.5 mmHgAI max P.6 mmHgLV V1 max: 94.5 cm/sec AI dec slope: 69.3 cm/sec MV E/A: 0.41 321.5 cm/sec2 AI P1/2t: 304.1 msec PA V2 max: PI end-d jose: TR max jose: 43.1 cm/sec 219.2 cm/sec 393.6 cm/sec PA max PG: TR max P.1 mmHg 0.74 mmHg Left Ventricle The left ventricle is grossly normal size. There is normal left ventricular wall thickness. The left ventricular ejection fraction is normal. Doppler measurements suggest pseudonormalized left ventricular relaxation, which is associated with grade II/IV or mild to moderate diastolic dysfunction. Wall motion cannot be accurately commented on, but no definite regional wall motion abnormalities noted. Right Ventricle The right ventricle is severely dilated. The right ventricle appears to be hypertrophied. The right ventricular systolic function is moderate to severely reduced. Atria The right atrium is severely dilated. The left atrial size is normal. Interarterial septum not well visualized and not well dopplered. Cannot comment on ASD/PFO presence. Mitral Valve The mitral valve is grossly normal. There is no mitral valve stenosis. There is a trace to mild amount of mitral regurgitation. Aortic Valve The aortic valve is grossly normal. There is no aortic valve stenosis. There is a mild amount of aortic regurgitation. Tricuspid Valve The tricuspid valve is not well visualized, but is grossly normal. There is no tricuspid stenosis. There is a moderate amount of tricuspid regurgitation. There is servere pulmonary hypertension by echo. Right ventricular systolic pressure is estimated to be elevated at >60mmHg. Pulmonic Valve The pulmonic valve is not well seen, but is grossly normal. There is no pulmonic valvular stenosis. There is a mild amount of pulmonic regurgitation. Great Vessels The aortic root is not well visualized but is probably normal size. The inferior vena cava appeared dilated and decreased < 50% with respiration (RAP 15-20 mmHg). Effusions Minimal pericardial effusion. : JONATAN LÓPEZ > Mike Mccall
[2016-10-27] MEDS: CYANOCOBALAMIN (VITAMIN B-12) 1,000 MCG TABLET PO SCH (10:25)
[2016-10-27] MEDS: RIVAROXABAN 15 MG TABLET PO SCH (10:25)
[2016-10-27] MEDS: ATORVASTATIN CALCIUM 10 MG TABLET PO SCH (10:26)
[2016-10-27] MEDS: HYDROCHLOROTHIAZIDE 12.5 MG CAPSULE PO SCH (10:27)
[2016-10-27] MEDS: LISINOPRIL 10 MG TABLET PO SCH (10:27)
[2016-10-27] MEDS: METOPROLOL SUCCINATE 25 MG TAB.SR.24H PO SCH (10:27)
--- NOTE | 2016-10-27 11:47 | PDOC PROGRESS REPORT ---
Subjective Progress Note for:: 10/26/16 Subjective:: Patient seems to be doing better with gradual improvement. Pt is denying any chest arm or neck discomfort. Patient denying any PND, orthopnea. Patient denied any sustained palpitations, dizziness, syncope, near syncope. Patient denying any fever chills. Patient denying any other significant discomfort. Patient is maintaining sinus rhythm. Review of systems: Rest review of systems negative. Medications: Medications have been reviewed. Patient started on dopamine at low-dose for hypotension. Consider switch to Midodrin. Physical Exam Vital Signs: Temp Pulse Resp BP Pulse Ox 97.9 F 90 17 92/53 L 97 10/26/16 16:00 10/26/16 18:00 10/26/16 16:00 10/26/16 18:01 10/26/16 16:00 Intake & Output 10/25/16 10/26/16 10/27/16 06:59 06:59 06:59 Intake Total 433 1607 Output Total 2750 1450 Balance -2317 157 Weight 47.7 kg Exam: GENERAL: well-nourished and in no acute distress. Alert and oriented 2 HEAD: Atraumatic, normocephalic. EYES: Pupils equal round and reactive to light, extraocular movements intact, sclera anicteric, conjunctiva are normal. ENT: TMs normal, nares patent, oropharynx clear without exudates. Moist mucous membranes. No oral ulcerations or bleeding gums noted NECK: supple without lymphadenopathy. Trachea is central. No cervical or axillary lymphadenopathy noted. Carotids are 2+, JVD 12 cm LUNGS: Respiration seems nonlabored, no significant accessory muscle action noted. Breath sounds clear to auscultation bilaterally and equal noted. No wheezes rales or rhonchi noted. No significant dullness noted on percussion. CHEST: Palpation of the chest wall shows no significant chest wall tenderness. No other significant abnormalities noted. 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 ABDOMEN: Soft, no significant tenderness appreciated, normoactive bowel sounds. No guarding, no rebound. No rigidity noted . No masses appreciated. EXTREMITIES: Pedal pulses are 1-2+, no calf tenderness noted. No clubbing or cyanosis. 1-2 + pedal edema noted NEUROLOGICAL: Focused neurological exam showed no significant neurologic deficit. Normal speech, no focal weakness appreciated. PSYCH: Normal mood, normal affect. Judgment and insight within normal limits. SKIN: No significant ecchymosis, rash, ulcerations or signs of pruritus noted. MUSCULOSKELETAL EXAM: No significant joint swelling noted. Results Laboratory Results: 10/25/16 17:51 10/26/16 05:09 10/26/16 05:09 Sodium 135.7 L Potassium 3.7 Chloride 94 L Carbon Dioxide 30 Anion Gap 12 BUN 47 H Creatinine 1.13 Est GFR ( Amer) 56 L Est GFR (Non-Af Amer) 47 L Glucose 98 Calcium 9.1 10/25/16 17:57 NT-Pro-B Natriuret Pep [id number] H Impressions: Chest X-Ray 10/25/16 00:00 IMPRESSION: Left retrocardiac airspace disease either atelectasis or pneumonia. Cardiomegaly unchanged. Assessment & Plan - Diagnosis (1) Anasarca Is this a current diagnosis for this admission?: Yes (2) Right heart failure with reduced right ventricular function Is this a current diagnosis for this admission?: Yes (3) COPD (chronic obstructive pulmonary disease) Qualifiers: COPD type: unspecified COPD Qualified Code(s): J44.9 - Chronic obstructive pulmonary disease, unspecified Is this a current diagnosis for this admission?: Yes (4) Hypotension Qualifiers: Hypotension type: unspecified hypotension type Qualified Code(s): I95.9 - Hypotension, unspecified Is this a current diagnosis for this admission?: Yes (5) Cor pulmonale Is this a current diagnosis for this admission?: Yes (6) Diabetes mellitus type 2 in nonobese Is this a current diagnosis for this admission?: Yes - Notes Notes: Recommend 2D echo for further evaluation of RV pressure. If patient has severe tricuspid regurgitation, then may need to consider tricuspid valve repair replacement etc. Continue with IV Lasix. Consider adding spironolactone to the regimen. If hypotension occurs, consider Midodrin p.o. recommend switching to Demadex as an outpatient. 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 Twelve-lead EKG, these were reviewed. Chest x-ray: Results reviewed. Shows significant cardiomegaly. Previous CTA reviewed. It showed massive enlargement of the right atrium and also significant enlargement of the right ventricle. Medications: These were reviewed. Labs: These were reviewed. Treatment/care plan: This was reviewed and discussed with involved personnel in the care of this patient and patient. Anasarca: Related to severe right heart failure. Continue IV diuretics. Switch to Demadex and spironolactone on discharge. Right heart failure with RV systolic dysfunction: Continue with IV diuretics, maintain good oxygenation. Cor pulmonale: Treat underlying pulmonary condition. COPD: Continue current management plans. Arterial hypotension: Continue dopamine drip. Consider switch to Midodrin as outpatient. Diabetes: Currently stable. Being managed by hospitalist. - Time Time with patient: Greater than 35 minutes - More than 50% of the time spent coordinating care, discussing management plans with involved caregivers. Management plans discussed with involved personnels. Medical decision making was of moderate to high complexity, patient's has multiple comorbidities. Medications reviewed and adjusted accordingly: Yes
--- NOTE | 2016-10-27 11:52 | PDOC PROGRESS REPORT ---
Subjective Progress Note for:: 10/27/16 Subjective:: Patient seems to be doing better with gradual improvement. Edema has improved but patient blood pressure has dropped. 2D echo results from yesterday reviewed. It showed significant RV systolic dysfunction. Pt is denying any chest arm or neck discomfort. Patient denying any PND, orthopnea. Patient denied any sustained palpitations, dizziness, syncope, near syncope. Patient denying any fever chills. Patient denying any other significant discomfort. Patient is maintaining sinus rhythm. Review of systems: Rest review of systems negative. Medications: Medications have been reviewed. Patient on dopamine at low-dose for hypotension. Ordered Midodrin. Physical Exam Vital Signs: Temp Pulse Resp BP Pulse Ox 98.3 F 81 19 72/46 L 100 10/27/16 07:46 10/27/16 11:00 10/27/16 07:46 10/27/16 11:01 10/27/16 07:46 Intake & Output 10/26/16 10/27/16 10/28/16 06:59 06:59 06:59 Intake Total 433 1643 Output Total 2750 1800 Balance -2317 -157 Weight 47.7 kg Exam: GENERAL: well-nourished and in no acute distress. Alert and oriented 2 HEAD: Atraumatic, normocephalic. EYES: Pupils equal round and reactive to light, extraocular movements intact, sclera anicteric, conjunctiva are normal. ENT: TMs normal, nares patent, oropharynx clear without exudates. Moist mucous membranes. No oral ulcerations or bleeding gums noted NECK: supple without lymphadenopathy. Trachea is central. No cervical or axillary lymphadenopathy noted. Carotids are 2+, JVD WNL LUNGS: Respiration seems nonlabored, no significant accessory muscle action noted. Breath sounds clear to auscultation bilaterally and equal noted. No wheezes rales or rhonchi noted. No significant dullness noted on percussion. CHEST: Palpation of the chest wall shows no significant chest wall tenderness. No other significant abnormalities noted. 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 ABDOMEN: Soft, no significant tenderness appreciated, normoactive bowel sounds. No guarding, no rebound. No rigidity noted . No masses appreciated. EXTREMITIES: Pedal pulses are 1-2+, no calf tenderness noted. No clubbing or cyanosis. 2 + pedal edema noted NEUROLOGICAL: Focused neurological exam showed no significant neurologic deficit. Normal speech, no focal weakness appreciated. PSYCH: Normal mood, normal affect. Judgment and insight within normal limits. SKIN: No significant ecchymosis, rash, ulcerations or signs of pruritus noted. MUSCULOSKELETAL EXAM: No significant joint swelling noted. Results Laboratory Results: 10/25/16 17:51 10/27/16 05:17 10/27/16 05:17 Sodium 134.3 L Potassium 3.8 Chloride 92 L Carbon Dioxide 29 Anion Gap 13 BUN 44 H Creatinine 1.09 Est GFR ( Amer) 59 L Est GFR (Non-Af Amer) 49 L Glucose 112 H Calcium 8.7 10/25/16 17:57 NT-Pro-B Natriuret Pep [id number] H Impressions: Chest X-Ray 10/25/16 00:00 IMPRESSION: Left retrocardiac airspace disease either atelectasis or pneumonia. Cardiomegaly unchanged. Assessment & Plan - Diagnosis (1) Anasarca Is this a current diagnosis for this admission?: Yes (2) Right heart failure with reduced right ventricular function Is this a current diagnosis for this admission?: Yes (3) COPD (chronic obstructive pulmonary disease) Qualifiers: COPD type: unspecified COPD Qualified Code(s): J44.9 - Chronic obstructive pulmonary disease, unspecified Is this a current diagnosis for this admission?: Yes (4) Hypotension Qualifiers: Hypotension type: unspecified hypotension type Qualified Code(s): I95.9 - Hypotension, unspecified Is this a current diagnosis for this admission?: Yes (5) Cor pulmonale Is this a current diagnosis for this admission?: Yes (6) Diabetes mellitus type 2 in nonobese Is this a current diagnosis for this admission?: Yes - Notes Notes: Started Midodrin and spironolactone today. 2D echo results reviewed. No change in intervention planned except for continuing with medical management. Continue with IV Lasix. I did add spironolactone to the regimen. Started Midodrin p.o., recommend switching to Demadex as an outpatient. 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 Twelve-lead EKG, these were reviewed. Chest x-ray: Results reviewed. Shows significant cardiomegaly. Previous CTA reviewed. It showed massive enlargement of the right atrium and also significant enlargement of the right ventricle. Medications: These were reviewed. Labs: These were reviewed. Treatment/care plan: This was reviewed and discussed with involved personnel in the care of this patient and patient. Anasarca: Related to severe right heart failure. Continue IV diuretics. Recommend switch to Demadex and spironolactone. Right heart failure with RV systolic dysfunction: Continue with IV diuretics, maintain good oxygenation. Cor pulmonale: Treat underlying pulmonary condition. COPD: Continue current management plans. Arterial hypotension: Patient placed on Midodrin. Diabetes: Currently stable. Being managed by hospitalist. - Time Time with patient: Greater than 35 minutes - CODE STATUS was discussed, patient remains full code. Surrogate decision-maker patient siblings. Multiple medical problems were addressed. More than 50% of the time spent coordinating care, discussing management plans with involved caregivers. Management plans discussed with involved personnels. Medical decision making was of moderate to high complexity, patient's has multiple comorbidities. Medications reviewed and adjusted accordingly: Yes
[2016-10-27] MEDS ORDERED: SPIRONOLACTONE 25 MG TABLET PO ONE (13:00)
[2016-10-27] MEDS: MIDODRINE HCL 5 MG TABLET PO SCH ×2 (13:34→17:43)
[2016-10-27] MEDS: NORMAL SALINE 250 ML with FUROSEMIDE 250 MG IV PRN ×2 (17:43)
[2016-10-27] MEDS: PHARMACY COMMUNICATION ORDER MC SCH (17:43)
--- NOTE | 2016-10-27 18:51 | PDOC PROGRESS REPORT ---
Subjective Progress Note for:: 10/27/16 Subjective:: She was seen by the bedside, she has severe ventricular heart failure, hypotension requiring dopamine,, Physical Exam Vital Signs: Temp Pulse Resp BP Pulse Ox 98.6 F 93 18 95/63 L 99 10/27/16 15:52 10/27/16 18:00 10/27/16 15:52 10/27/16 18:01 10/27/16 15:52 Intake & Output 10/26/16 10/27/16 10/28/16 06:59 06:59 06:59 Intake Total 433 1643 520 Output Total 2750 1800 400 Balance -6757 -157 120 Weight 47.7 kg General appearance: PRESENT: no acute distress, thin Eye exam: PRESENT: PERRLA Respiratory exam: PRESENT: crackles Cardiovascular exam: PRESENT: +S1, +S2 GI/Abdominal exam: PRESENT: soft Extremities exam: PRESENT: pedal edema Neurological exam: PRESENT: alert Results Laboratory Results: 10/25/16 17:51 10/27/16 05:17 10/27/16 05:17 Sodium 134.3 L Potassium 3.8 Chloride 92 L Carbon Dioxide 29 Anion Gap 13 BUN 44 H Creatinine 1.09 Est GFR ( Amer) 59 L Est GFR (Non-Af Amer) 49 L Glucose 112 H Calcium 8.7 10/25/16 17:57 NT-Pro-B Natriuret Pep [id number] H Impressions: Chest X-Ray 10/25/16 00:00 IMPRESSION: Left retrocardiac airspace disease either atelectasis or pneumonia. Cardiomegaly unchanged. Assessment & Plan - Diagnosis (1) Anasarca Is this a current diagnosis for this admission?: Yes (2) Body mass index (BMI) 19 or less, adult Is this a current diagnosis for this admission?: Yes (3) Chronic atrial fibrillation Is this a current diagnosis for this admission?: Yes (4) Cor pulmonale Is this a current diagnosis for this admission?: Yes (5) Diabetes mellitus type 2 in nonobese Is this a current diagnosis for this admission?: Yes (6) Right heart failure with reduced right ventricular function Is this a current diagnosis for this admission?: Yes (7) Hypotension Qualifiers: Hypotension type: unspecified hypotension type Qualified Code(s): I95.9 - Hypotension, unspecified Is this a current diagnosis for this admission?: YesPlan: Continue midodrine, IV dobutamine, DC lisinopril
[2016-10-28] MEDS: DOPAMINE HCL 800 MG/D5W 250 ML IV PRN (05:34)
[2016-10-28 06:05] LABS: ANION GAP 13 (5-19); BLOOD UREA NITROGEN 42 mg/dL (7-20); CARBON DIOXIDE 32 mmol/L (22-30); CHLORIDE 88 mmol/L (98-107); CREATININE RESULT 0.94 mg/dL (0.52-1.25); GLUCOSE 98 mg/dL (75-110); POTASSIUM 3.5 mmol/L (3.6-5.0); SODIUM 133.2 mmol/L (137-145)
--- NOTE | 2016-10-28 09:32 | RADIOLOGY REPORT (SQ) ---
EXAM DESCRIPTION: KNEE LEFT 4 VIEW COMPLETED DATE/TIME: 10/28/2016 9:15 am REASON FOR STUDY: swelling in left knee COMPARISON: None. NUMBER OF VIEWS: Four views. TECHNIQUE: AP, lateral, and both oblique radiographic images acquired of the left knee. LIMITATIONS: None. FINDINGS: MINERALIZATION: Normal. BONES: No acute fracture or dislocation. No worrisome bone lesions. JOINT: No effusion. SOFT TISSUES: No soft tissue swelling. No radio-opaque foreign body. OTHER: Vascular calcifications are identified. IMPRESSION: No significant findings. TECHNICAL DOCUMENTATION: JOB ID: [id number] [employer]- All Rights Reserved
[2016-10-28] MEDS: SPIRONOLACTONE 25 MG TABLET PO SCH (10:20)
[2016-10-28] MEDS: METFORMIN HCL 500 MG TABLET PO SCH ×2 (10:20→18:57)
[2016-10-28] MEDS: CYANOCOBALAMIN (VITAMIN B-12) 1,000 MCG TABLET PO SCH (10:21)
[2016-10-28] MEDS: MIDODRINE HCL 5 MG TABLET PO SCH ×3 (10:21→18:57)
[2016-10-28] MEDS: ATORVASTATIN CALCIUM 10 MG TABLET PO SCH (10:21)
[2016-10-28] MEDS: HYDROCHLOROTHIAZIDE 12.5 MG CAPSULE PO SCH (10:50)
[2016-10-28] MEDS: RIVAROXABAN 15 MG TABLET PO SCH (10:50)
[2016-10-28] MEDS: LISINOPRIL 10 MG TABLET PO SCH (10:54)
[2016-10-28] MEDS: METOPROLOL SUCCINATE 25 MG TAB.SR.24H PO SCH (10:54)
--- NOTE | 2016-10-28 14:38 | PROGRESS NOTE E ---
Progress Note NAME: AILYN ROMERO : 1940 AGE: 76Y DATE: 10/28/2016 ROOM: 327 SUBJECTIVE: Note that the patient still has some orthopnea. She denies any chest pain or discomfort. There is no shortness of breath. The patient remains in sinus rhythm. She has a history of paroxysmal atrial fibrillation. The patient's leg edema is still present but slightly less. Note that the patient still requires dopamine to keep her blood pressure up; she is on 3 mcg/kg/min. Her Lasix drip has been reduced to 3 mg/hr. There is no ventricular arrhythmia seen. The patient is tolerating dopamine without any nausea or vomiting. There is no tachycardia. There is no TIA or CVA symptoms. There is no bleeding on Xarelto. OBJECTIVE: GENERAL: On examination, the patient is of frail build and appears chronically ill. VITAL SIGNS: She is afebrile with a temperature of 97.9 degrees Fahrenheit. Pulse is 92 beats per minute. Blood pressure is 113/61. Respirations are 18 per minute. O2 sats are 97% on 2 L nasal cannula. HEENT: Head is atraumatic, normocephalic. Eyes - Pupils are equal, round, regular, reactive to light and accommodation. Extraocular movements are normal. There is no conjunctival pallor. There is no scleral icterus. ENT is negative. NECK: Supple. There is no JVD. Carotids are equal. There is no bruit. There is no goiter. There is no lymphadenopathy. Trachea is central. LUNGS: Clear to auscultation and percussion. HEART: S1 and S2 is heard. There is no S3 gallop and there is no S4 gallop. There is a systolic murmur at the left sternal border and the apex. There is no rub. S1 is abnormal intensity. ABDOMEN: Soft, nontender. There is no hepatosplenomegaly. Bowel sounds are well heard. EXTREMITIES: Femorals are diminished. There is no femoral bruit. Leg pulses are diminished. There is 1+ to 2+ pedal edema bilaterally/lower extremity edema bilaterally. There is no cyanosis or clubbing. There is no calf tenderness. There is no evidence of DVT. There is no cellulitis. CENTRAL NERVOUS SYSTEM: The patient is conscious, awake, alert, and oriented x3 with no focal deficits. PSYCHIATRIC: The patient does not appear to be agitated or depressed. NOTE: Review of systems done with no changes. DIAGNOSTICS: The patient's intake and output shows an intake of 592 mL and output of 1200 mL. The patient's sodium is 133.2, potassium 3.5, chloride is 88, CO2 is 32, the patient's BUN is 42, creatinine 0.94, GFR is greater than 60, her calcium is 8, blood sugar is 98. The patient's CBC on the showed a white count of 5100, hemoglobin 9.9, hematocrit 31.2, and a platelet count of 278,000. IMPRESSION: 1. BILATERAL LEG EDEMA MOST LIKELY SECONDARY TO RIGHT HEART FAILURE AND SEVERE PULMONARY HYPERTENSION. 2. RIGHT HEART FAILURE, ACUTE ON CHRONIC, REDUCED RIGHT VENTRICULAR SYSTOLIC FUNCTION. 3. COPD, AT PRESENT NO ACUTE EXACERBATION. 4. HYPOTENSION. Continue the patient on dopamine, but in view of the patient's severe pulmonary hypertension and leg edema, would recommend that the patient be placed on Levophed, which is a better drug for right heart failure and pulmonary hypertension. 5. COR PULMONALE. At present the patient is being treated with lisinopril and Lasix under the cover of dopamine. Of note, the patient is also on midodrine. 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 t.i.d. 6. PAROXYSMAL ATRIAL FIBRILLATION, AT PRESENT SINUS RHYTHM. 7. DIABETES MELLITUS, TYPE 2, WITHOUT COMPLICATIONS. RECOMMENDATIONS: Continue the patient's Lasix drip, continue dopamine for now. Will check the patient's blood pressure. If still low, will increase the patient's midodrine in the a.m. Of note, the patient is also on hydrochlorothiazide and lisinopril. For the patient's diabetes, the patient is on metformin. Of note, 30 minutes was spent on the patient, more than 50% of the time spent on direct patient care. This case presents highly complex medical decision making needed and done due to the patient's hypotension, patient's severe pulmonary hypertension, and the patient's advanced age. Continue Xarelto for the patient's paroxysmal atrial fibrillation. The patient is at a lower dose at 15 mg per day. Note, coordination of care done with other caregiving providers on the case. Note that the patient's medications have been reviewed. THE PATIENT IS A FULL CODE. Her relative, Ms. Mariluz Flannery, is her surrogate healthcare decision maker. I will follow with you. DICTATING PHYSICIAN: LJ GUADALUPE M.D. [id number] PHY#: [id number] ID: [id number] JOB#: [id number] ACCT: [id number] cc: >
--- NOTE | 2016-10-28 18:44 | PDOC PROGRESS REPORT ---
Subjective Progress Note for:: 10/28/16 Subjective:: She was seen by the bedside, she has severe ventricular heart failure, hypotension requiring dopamine, midodrine was added to her regimen Physical Exam Vital Signs: Temp Pulse Resp BP Pulse Ox 98.4 F 91 18 89/53 L 98 10/28/16 11:43 10/28/16 15:41 10/28/16 09:23 10/28/16 15:41 10/28/16 11:43 Intake & Output 10/27/16 10/28/16 10/29/16 06:59 06:59 06:59 Intake Total 1643 592 720 Output Total 1800 1200 300 Balance -157 -608 420 General appearance: PRESENT: no acute distress Eye exam: PRESENT: PERRLA Respiratory exam: PRESENT: clear to auscultation chip Cardiovascular exam: PRESENT: +S1, +S2 GI/Abdominal exam: PRESENT: soft Extremities exam: PRESENT: pedal edema Results Laboratory Results: 10/25/16 17:51 10/28/16 05:05 10/28/16 05:05 Sodium 133.2 L Potassium 3.5 L Chloride 88 L Carbon Dioxide 32 H Anion Gap 13 BUN 42 H Creatinine 0.94 Est GFR ( Amer) > 60 Est GFR (Non-Af Amer) 58 L Glucose 98 Calcium 8.0 L 10/25/16 17:57 NT-Pro-B Natriuret Pep [id number] H Impressions: Chest X-Ray 10/25/16 00:00 IMPRESSION: Left retrocardiac airspace disease either atelectasis or pneumonia. Cardiomegaly unchanged. Knee X-Ray 10/28/16 00:00 IMPRESSION: No significant findings. Assessment & Plan - Diagnosis (1) Anasarca Is this a current diagnosis for this admission?: Yes (2) Body mass index (BMI) 19 or less, adult Is this a current diagnosis for this admission?: Yes (3) Chronic atrial fibrillation Is this a current diagnosis for this admission?: Yes (4) Cor pulmonale Is this a current diagnosis for this admission?: Yes (5) Diabetes mellitus type 2 in nonobese Is this a current diagnosis for this admission?: Yes (6) Right heart failure with reduced right ventricular function Is this a current diagnosis for this admission?: Yes (7) Hypotension Qualifiers: Hypotension type: unspecified hypotension type Qualified Code(s): I95.9 - Hypotension, unspecified Is this a current diagnosis for this admission?: Yes
[2016-10-28] MEDS: PHARMACY COMMUNICATION ORDER MC SCH (18:58)
[2016-10-29] MEDS: NORMAL SALINE 250 ML with FUROSEMIDE 250 MG IV PRN ×2 (00:03)
[2016-10-29 05:42] LABS: ANION GAP 9 (5-19); BLOOD UREA NITROGEN 40 mg/dL (7-20); CALCIUM 8.3 mg/dL (8.4-10.2); CARBON DIOXIDE 34 mmol/L (22-30); CHLORIDE 90 mmol/L (98-107); CREATININE RESULT 0.96 mg/dL (0.52-1.25); GLUCOSE 107 mg/dL (75-110); POTASSIUM 3.9 mmol/L (3.6-5.0); SODIUM 132.7 mmol/L (137-145)
[2016-10-29] MEDS: METFORMIN HCL 500 MG TABLET PO SCH ×2 (08:03→17:36)
[2016-10-29] MEDS: ATORVASTATIN CALCIUM 10 MG TABLET PO SCH (09:32)
[2016-10-29] MEDS: MIDODRINE HCL 5 MG TABLET PO SCH ×3 (09:32→17:36)
[2016-10-29] MEDS: CYANOCOBALAMIN (VITAMIN B-12) 1,000 MCG TABLET PO SCH (09:33)
[2016-10-29] MEDS: METOPROLOL SUCCINATE 25 MG TAB.SR.24H PO SCH (09:33)
[2016-10-29] MEDS: RIVAROXABAN 15 MG TABLET PO SCH (09:33)
[2016-10-29] MEDS: HYDROCHLOROTHIAZIDE 12.5 MG CAPSULE PO SCH (09:48)
[2016-10-29] MEDS: SPIRONOLACTONE 25 MG TABLET PO SCH (10:38)
--- NOTE | 2016-10-29 12:23 | PDOC PROGRESS REPORT ---
Subjective Progress Note for:: 10/29/16 Subjective:: Patient seems to be doing better with gradual improvement. Edema has improved but patient blood pressure has dropped. 2D echo results from this admission reviewed. It showed significant RV systolic dysfunction. Pt is denying any chest arm or neck discomfort. Patient denying any PND, orthopnea. Patient denied any sustained palpitations, dizziness, syncope, near syncope. Patient denying any fever chills. Patient denying any other significant discomfort. Patient noted to be hard of hearing. Patient is maintaining sinus rhythm. Review of systems: Rest review of systems negative. Medications: Medications have been reviewed. Patient on dopamine at low-dose for hypotension. Continue current dose Midodrin. Physical Exam Vital Signs: Temp Pulse Resp BP Pulse Ox 97.3 F 81 16 87/54 L 100 10/29/16 08:07 10/29/16 08:07 10/29/16 08:07 10/29/16 09:02 10/29/16 08:07 Intake & Output 10/28/16 10/29/16 10/30/16 06:59 06:59 06:59 Intake Total 592 1303 Output Total 1200 500 Balance -608 803 Exam: GENERAL: well-nourished and in no acute distress. Alert and oriented x3 HEAD: Atraumatic, normocephalic. EYES: Pupils equal round and reactive to light, extraocular movements intact, sclera anicteric, conjunctiva are normal. ENT: TMs normal, nares patent, oropharynx clear without exudates. Moist mucous membranes. No oral ulcerations or bleeding gums noted NECK: supple without lymphadenopathy. Trachea is central. No cervical or axillary lymphadenopathy noted. Carotids are 2+, JVD 8-10 cm, predominantly CV waves. LUNGS: Respiration seems nonlabored, no significant accessory muscle action noted. Breath sounds clear to auscultation bilaterally and equal noted. No wheezes rales or rhonchi noted. No significant dullness noted on percussion. CHEST: Palpation of the chest wall shows no significant chest wall tenderness. No other significant abnormalities noted. HEART: Waddy PICKLE PUMPER, No PSH, 1/6 ELMER aortic area, 1/6 wall systolic murmur mitral area, no rubs, no gallops. ABDOMEN: Soft, no significant tenderness appreciated, normoactive bowel sounds. No guarding, no rebound. No rigidity noted . No masses appreciated. EXTREMITIES: Pedal pulses are 1-2+, no calf tenderness noted. No clubbing or cyanosis. 1+ pedal edema noted NEUROLOGICAL: Focused neurological exam showed no significant neurologic deficit. Normal speech, no focal weakness appreciated. PSYCH: Normal mood, normal affect. Judgment and insight within normal limits. SKIN: No significant ecchymosis, rash, ulcerations or signs of pruritus noted. MUSCULOSKELETAL EXAM: No significant joint swelling noted. Results Laboratory Results: 10/25/16 17:51 10/29/16 04:55 10/29/16 04:55 Sodium 132.7 L Potassium 3.9 Chloride 90 L Carbon Dioxide 34 H Anion Gap 9 BUN 40 H Creatinine 0.96 Est GFR ( Amer) > 60 Est GFR (Non-Af Amer) 56 L Glucose 107 Calcium 8.3 L 10/25/16 17:57 NT-Pro-B Natriuret Pep [id number] H Impressions: Chest X-Ray 10/25/16 00:00 IMPRESSION: Left retrocardiac airspace disease either atelectasis or pneumonia. Cardiomegaly unchanged. Knee X-Ray 10/28/16 00:00 IMPRESSION: No significant findings. Assessment & Plan - Diagnosis (1) Anasarca Is this a current diagnosis for this admission?: Yes (2) Right heart failure with reduced right ventricular function Is this a current diagnosis for this admission?: Yes (3) COPD (chronic obstructive pulmonary disease) Qualifiers: COPD type: unspecified COPD Qualified Code(s): J44.9 - Chronic obstructive pulmonary disease, unspecified Is this a current diagnosis for this admission?: Yes (4) Hypotension Qualifiers: Hypotension type: unspecified hypotension type Qualified Code(s): I95.9 - Hypotension, unspecified Is this a current diagnosis for this admission?: Yes (5) Cor pulmonale Is this a current diagnosis for this admission?: Yes (6) Diabetes mellitus type 2 in nonobese Is this a current diagnosis for this admission?: Yes - Notes Notes: Continue Midodrin and spironolactone, continue low-dose dopamine but consider tapering it to DC. Start patient on p.o. diuretics. Previous 2D echo results reviewed. No change in intervention planned except for continuing with medical management. playground monitor, this was reviewed. Patient maintaining sinus rhythm. Twelve-lead EKG, these were reviewed. Chest x-ray: Previous results reviewed. Shows significant cardiomegaly. Previous CTA reviewed. It showed massive enlargement of the right atrium and also significant enlargement of the right ventricle. Medications: These were reviewed. Labs: These were reviewed. Treatment/care plan: This was reviewed and discussed with involved personnel in the care of this patient and patient. Discussed with Dr. Cheng. Anasarca: Related to severe right heart failure. Patient to continue with salt and fluid restriction.. Right heart failure with RV systolic dysfunction: Continue with IV diuretics, maintain good oxygenation. This seems compensated on clinical exam. Continue baseline diuretic therapy. Patient should be educated in CHF pathway. This should include salt and fluid restriction, daily weighing, adjustment of diuretic therapy based on weight gain et cetera. Patient to be educated that if there is gain of more than 2 pounds in a day or more than 5 pounds in a week , this indicates fluid retention and patient may need to adjust the diuretic therapy. Symptoms associated with CHF exacerbation to be discussed with the patient. This could include rapid weight gain, abdominal bloating, increased shortness of breath, fatigue, tiredness, cardiac arrhythmias et cetera. Cor pulmonale: Treat underlying pulmonary condition. COPD: Continue current management plans. Arterial hypotension: Patient placed on Midodrin. Patient seems to be tolerating this well. Diabetes: Recommend good control of blood sugar. However should avoid any hypoglycemia. Patient being expertly managed by primary care M.D.. - Time Time with patient: Greater than 35 minutes - CODE STATUS was discussed, patient remains full code. Surrogate decision-maker patient's siblings. Multiple medical problems were addressed. More than 50% of the time spent coordinating care, discussing management plans with involved caregivers. Management plans discussed with involved personnels. Medical decision making was of moderate to high complexity, patient's has multiple comorbidities. Medications reviewed and adjusted accordingly: Yes
[2016-10-29] MEDS ORDERED: TORSEMIDE 20 MG TABLET PO ONE (13:30)
--- NOTE | 2016-10-29 14:50 | PDOC PROGRESS REPORT ---
Subjective Progress Note for:: 10/29/16 Subjective:: She was seen by the bedside, the intravenous dopamine will be discontinued, the IV furosemide will be discontinued and transitioned to p.o. diuretic Physical Exam Vital Signs: Temp Pulse Resp BP Pulse Ox 97.9 F 89 18 86/54 L 100 10/29/16 11:51 10/29/16 11:51 10/29/16 11:51 10/29/16 12:01 10/29/16 11:51 Intake & Output 10/28/16 10/29/16 10/30/16 06:59 06:59 06:59 Intake Total 592 1303 835 Output Total 1200 500 200 Balance -608 803 635 General appearance: PRESENT: no acute distress Eye exam: PRESENT: PERRLA Respiratory exam: PRESENT: rhonchi Cardiovascular exam: PRESENT: +S1, +S2 GI/Abdominal exam: PRESENT: soft Extremities exam: PRESENT: pedal edema Neurological exam: PRESENT: alert Results Laboratory Results: 10/25/16 17:51 10/29/16 04:55 10/29/16 04:55 Sodium 132.7 L Potassium 3.9 Chloride 90 L Carbon Dioxide 34 H Anion Gap 9 BUN 40 H Creatinine 0.96 Est GFR ( Amer) > 60 Est GFR (Non-Af Amer) 56 L Glucose 107 Calcium 8.3 L 10/25/16 17:57 NT-Pro-B Natriuret Pep [id number] H Impressions: Chest X-Ray 10/25/16 00:00 IMPRESSION: Left retrocardiac airspace disease either atelectasis or pneumonia. Cardiomegaly unchanged. Knee X-Ray 10/28/16 00:00 IMPRESSION: No significant findings. Assessment & Plan - Diagnosis (1) Anasarca Is this a current diagnosis for this admission?: Yes (2) Body mass index (BMI) 19 or less, adult Is this a current diagnosis for this admission?: Yes (3) Chronic atrial fibrillation Is this a current diagnosis for this admission?: Yes (4) Cor pulmonale Is this a current diagnosis for this admission?: Yes (5) Diabetes mellitus type 2 in nonobese Is this a current diagnosis for this admission?: Yes (6) Right heart failure with reduced right ventricular function Is this a current diagnosis for this admission?: Yes (7) Hypotension Qualifiers: Hypotension type: unspecified hypotension type Qualified Code(s): I95.9 - Hypotension, unspecified Is this a current diagnosis for this admission?: Yes - Plan Summary Plan Summary: The IV furosemide was discontinued,PO furosemide is started
[2016-10-29] MEDS: FUROSEMIDE ORAL SOLN 40 MG/5 ML UDCUP PO SCH ×2 (15:41→22:44)
[2016-10-29] MEDS: PHARMACY COMMUNICATION ORDER MC SCH (18:29)
[2016-10-30 05:29] LABS: ANION GAP 7 (5-19); BLOOD UREA NITROGEN 36 mg/dL (7-20); CALCIUM 8.2 mg/dL (8.4-10.2); CARBON DIOXIDE 36 mmol/L (22-30); CHLORIDE 89 mmol/L (98-107); CREATININE RESULT 0.91 mg/dL (0.52-1.25); GLUCOSE 95 mg/dL (75-110); POTASSIUM 4.1 mmol/L (3.6-5.0); SODIUM 131.9 mmol/L (137-145)
[2016-10-30] MEDS: FUROSEMIDE ORAL SOLN 40 MG/5 ML UDCUP PO SCH ×3 (06:44→21:50)
[2016-10-30] MEDS: METFORMIN HCL 500 MG TABLET PO SCH ×2 (08:38→18:04)
--- NOTE | 2016-10-30 09:33 | EKG REPORT ---
SEVERITY:- ABNORMAL ECG - SINUS RHYTHM LEFT ATRIAL ABNORMALITY CONSIDER RVH W/ SECONDARY REPOL ABNORMALITY ABNRM R PROG, CONSIDER ASMI OR LEAD PLACEMENT T ABNORMALITIES, LATERAL LEADS AND INFERIOR LEADS CONSISTENT WITH ISCHEMIA : Confirmed by: Mike Mccall 30-Oct-2016 09:32:44
[2016-10-30] MEDS ORDERED: TORSEMIDE 20 MG TABLET PO SCH (10:00)
[2016-10-30] MEDS: SPIRONOLACTONE 25 MG TABLET PO SCH (10:45)
[2016-10-30] MEDS: CYANOCOBALAMIN (VITAMIN B-12) 1,000 MCG TABLET PO SCH (10:45)
[2016-10-30] MEDS: ATORVASTATIN CALCIUM 10 MG TABLET PO SCH (10:45)
[2016-10-30] MEDS: MIDODRINE HCL 5 MG TABLET PO SCH (10:46)
[2016-10-30] MEDS: METOPROLOL SUCCINATE 25 MG TAB.SR.24H PO SCH (10:46)
[2016-10-30] MEDS: RIVAROXABAN 15 MG TABLET PO SCH (10:46)
--- NOTE | 2016-10-30 13:21 | PDOC PROGRESS REPORT ---
Subjective Progress Note for:: 10/30/16 Subjective:: She was seen by the bedside, blood pressure is marginally normal, she is no more requiring intravenous dopamine. She still have anasarca, is improved compared to admission Physical Exam Vital Signs: Temp Pulse Resp BP Pulse Ox 97.7 F 71 17 100/59 L 90 L 10/30/16 07:58 10/30/16 07:58 10/30/16 07:58 10/30/16 07:58 10/30/16 07:58 Intake & Output 10/29/16 10/30/16 10/31/16 06:59 06:59 06:59 Intake Total 1303 2010 Output Total 500 1200 Balance 803 811 Weight 46.9 kg General appearance: PRESENT: no acute distress Eye exam: PRESENT: PERRLA Respiratory exam: PRESENT: clear to auscultation chip Cardiovascular exam: PRESENT: +S1, +S2 Extremities exam: PRESENT: pedal edema Results Laboratory Results: 10/25/16 17:51 10/30/16 04:34 10/30/16 04:34 Sodium 131.9 L Potassium 4.1 Chloride 89 L Carbon Dioxide 36 H Anion Gap 7 BUN 36 H Creatinine 0.91 Est GFR ( Amer) > 60 Est GFR (Non-Af Amer) > 60 Glucose 95 Calcium 8.2 L 10/25/16 17:57 NT-Pro-B Natriuret Pep [id number] H Impressions: Chest X-Ray 10/25/16 00:00 IMPRESSION: Left retrocardiac airspace disease either atelectasis or pneumonia. Cardiomegaly unchanged. Knee X-Ray 10/28/16 00:00 IMPRESSION: No significant findings. Assessment & Plan - Diagnosis (1) Anasarca Is this a current diagnosis for this admission?: Yes (2) Body mass index (BMI) 19 or less, adult Is this a current diagnosis for this admission?: Yes (3) Chronic atrial fibrillation Is this a current diagnosis for this admission?: Yes (4) Cor pulmonale Is this a current diagnosis for this admission?: Yes (5) Diabetes mellitus type 2 in nonobese Is this a current diagnosis for this admission?: Yes (6) Right heart failure with reduced right ventricular function Is this a current diagnosis for this admission?: Yes (7) Hypotension Qualifiers: Hypotension type: unspecified hypotension type Qualified Code(s): I95.9 - Hypotension, unspecified Is this a current diagnosis for this admission?: Yes - Plan Summary Plan Summary: Continue treatment, prognosis is poor
[2016-10-30] MEDS ORDERED: MIDODRINE HCL 5 MG TABLET PO ONE (16:00)
--- NOTE | 2016-10-30 16:08 | PROGRESS NOTE E ---
Progress Note NAME: AILYN ROMERO : 1940 AGE: 76Y DATE: 10/30/2016 ROOM: 327 SUBJECTIVE: The patient continues to have orthopnea. She states she has no chest pain, and shortness of breath is absent at rest. She remains in sinus rhythm. She has a history of paroxysmal atrial fibrillation. The patient's leg edema is still present and only mildly better. There is no PND. There is no ventricular arrhythmia seen. She is off the dopamine and Lasix drip. There are no TIA or CVA symptoms. There is no bleeding on Xarelto. OBJECTIVE: GENERAL: On examination, the patient is of frail build and appears to be chronically ill. VITAL SIGNS: She is afebrile with a temperature of 97.7 degrees Fahrenheit. Pulse is 71 beats per minute. Blood pressure is 100/59. Respirations are 17 per minute. O2 sats are 90% on 1.5 L nasal cannula. HEENT: Head is atraumatic, normocephalic. Eyes: Pupils are equal, round, regular, reactive to light and accommodation. Extraocular movements are normal. There is no conjunctival pallor. There is no scleral icterus. ENT is negative. NECK: Supple. There is no JVD. Carotids are equal. There is no bruit. There is no goiter. There is no lymphadenopathy. Trachea is central. LUNGS: Clear to auscultation and percussion. HEART: S1 and S2 is heard. There is no S3 gallop. There is no S4 gallop. There is a systolic murmur at the left sternal border and the apex. There is no rub. S1 is of abnormal intensity. Note: There is a murmur of significant tricuspid regurgitation present. ABDOMEN: Soft, nontender. There is no hepatosplenomegaly. Bowel sounds are well heard. EXTREMITIES: Femorals are diminished. There is no femoral bruit. Leg pulses are diminished. There is a little more than 1+ pedal edema bilaterally in the lower extremity. There is no cyanosis or clubbing. There is no calf tenderness. There is no evidence of DVT. There is no cellulitis. Capillary refill is normal. CENTRAL NERVOUS SYSTEM: The patient is conscious, awake, alert, and oriented x3 with no focal deficits. PSYCHIATRIC: The patient does not appear to be agitated or depressed. NOTE: Review of systems done; there are no changes in the review of systems. DIAGNOSTICS: The patient's 24-hour intake is 2011 mL, output is 1002 mL. The patient's EKG shows sinus rhythm, left atrial abnormality, RVH with 2nd degree repolarization abnormality, abnormal R-wave progression, old anteroseptal WA versus lead placement, T abnormalities lateral leads and inferior leads consistent with ischemia. The patient's white count is sodium is 131.9, potassium 4.1, chloride is 89, CO2 is 36. The patient's BUN is 36, creatinine 0.91, GFR is greater than 60, calcium is 8.2. IMPRESSION: 1. BILATERAL LEG EDEMA SECONDARY TO RIGHT HEART FAILURE AND SEVERE PULMONARY HYPERTENSION. 2. ACUTE ON CHRONIC RIGHT HEART SYSTOLIC FAILURE WITH REDUCED RIGHT VENTRICULAR SYSTOLIC FUNCTION. 3. COPD, AT PRESENT NO ACUTE EXACERBATION. 4. HYPOTENSION. She is off the dopamine but blood pressure is still marginal at 100 systolic. She is on midodrine 5 mg p.o. t.i.d. and will increase it to 10 mg p.o. t.i.d. 5. COR PULMONALE. At present the patient is being treated with lisinopril and Lasix. Note that the patient is also on midodrine. 6. PAROXYSMAL ATRIAL FIBRILLATION, AT PRESENT SINUS RHYTHM. 7. DIABETES MELLITUS, TYPE 2, WITHOUT COMPLICATIONS. RECOMMENDATIONS: Continue the Lasix 20 mg p.o. q.8 h. Continue Xarelto. Continue spironolactone at 25 mg p.o. daily. Note, unable to give her ANCELMO inhibitor at present due to her blood pressure being low. Will increase the patient's midodrine to 10 mg p.o. t.i.d. Note that the patient's prognosis is very guarded. The patient is a FULL CODE and her daughter is the surrogate healthcare decision maker. DICTATING PHYSICIAN: LJ GUADALUPE M.D. [id number] PHY#: [id number] ID: [id number] JOB#: [id number] ACCT: [id number] cc: >
[2016-10-30] MEDS: PHARMACY COMMUNICATION ORDER MC SCH (18:11)
[2016-10-31] MEDS: FUROSEMIDE ORAL SOLN 40 MG/5 ML UDCUP PO SCH ×3 (06:01→21:10)
[2016-10-31] MEDS: CYANOCOBALAMIN (VITAMIN B-12) 1,000 MCG TABLET PO SCH (09:59)
[2016-10-31] MEDS: METFORMIN HCL 500 MG TABLET PO SCH ×2 (09:59→16:31)
[2016-10-31] MEDS: RIVAROXABAN 15 MG TABLET PO SCH (09:59)
[2016-10-31] MEDS: MIDODRINE HCL 5 MG TABLET PO SCH ×3 (10:00→18:26)
[2016-10-31] MEDS: METOPROLOL SUCCINATE 25 MG TAB.SR.24H PO SCH (10:00)
[2016-10-31] MEDS: SPIRONOLACTONE 25 MG TABLET PO SCH (10:00)
[2016-10-31] MEDS: ATORVASTATIN CALCIUM 10 MG TABLET PO SCH (10:00)
--- NOTE | 2016-10-31 18:15 | PDOC PROGRESS REPORT ---
Subjective Progress Note for:: 10/31/16 Subjective:: Patient was seen by the bedside she is off all IV medications Physical Exam Vital Signs: Temp Pulse Resp BP Pulse Ox 97.5 F 76 18 108/65 99 10/31/16 12:13 10/31/16 14:00 10/31/16 12:13 10/31/16 12:13 10/31/16 12:13 Intake & Output 10/30/16 10/31/16 11/01/16 06:59 06:59 06:59 Intake Total 20107 478 Output Total 1200 1200 200 Balance 811 687 278 Weight 46.9 kg 48.5 kg General appearance: PRESENT: no acute distress Head exam: PRESENT: atraumatic, normocephalic Respiratory exam: PRESENT: rhonchi Cardiovascular exam: PRESENT: +S1, +S2 GI/Abdominal exam: PRESENT: soft Results Laboratory Results: 10/25/16 17:51 10/30/16 04:34 10/25/16 17:57 NT-Pro-B Natriuret Pep [id number] H Impressions: Chest X-Ray 10/25/16 00:00 IMPRESSION: Left retrocardiac airspace disease either atelectasis or pneumonia. Cardiomegaly unchanged. Knee X-Ray 10/28/16 00:00 IMPRESSION: No significant findings. Assessment & Plan - Diagnosis (1) Anasarca Is this a current diagnosis for this admission?: Yes (2) Body mass index (BMI) 19 or less, adult Is this a current diagnosis for this admission?: Yes (3) Chronic atrial fibrillation Is this a current diagnosis for this admission?: Yes (4) Cor pulmonale Is this a current diagnosis for this admission?: Yes (5) Diabetes mellitus type 2 in nonobese Is this a current diagnosis for this admission?: Yes (6) Right heart failure with reduced right ventricular function Is this a current diagnosis for this admission?: Yes (7) Hypotension Qualifiers: Hypotension type: unspecified hypotension type Qualified Code(s): I95.9 - Hypotension, unspecified Is this a current diagnosis for this admission?: Yes - Plan Summary Plan Summary: continue Treatment
[2016-10-31] MEDS: PHARMACY COMMUNICATION ORDER MC SCH (18:27)
[2016-10-31] MEDS: DILTIAZEM HCL 30 MG TABLET PO SCH (21:09)
--- NOTE | 2016-10-31 21:59 | PROGRESS NOTE E ---
Progress Note NAME: AILYN ROMERO : 1940 AGE: 76Y DATE: 10/31/2016 ROOM: 327 SUBJECTIVE: The patient states the shortness of breath is much improved. She states she can lie down flat for just a few minutes but continues to have orthopnea. Her leg edema is slightly better. Her blood pressure seems to be better. She denies any chest pain or discomfort. There is no PND, there are no palpitations, there is no recurrence of atrial fibrillation, there is no near syncope or syncope, there are no TIA or CVA symptoms. OBJECTIVE: GENERAL: On examination, the patient is of frail build and appears to be chronically ill. VITAL SIGNS: She is afebrile with a temperature of 97.5 degrees Fahrenheit orally. Pulse is 79 beats per minute. Blood pressure is 108/65. Respirations are 18 per minute. O2 sats are 99% on 2 L nasal cannula. HEENT: Head is atraumatic, normocephalic. Eyes: Pupils are equal, round, regular, reactive to light and accommodation. Extraocular movements are normal. There is no conjunctival pallor. There is no scleral icterus. ENT is negative. NECK: Supple. There is no JVD. Carotids are equal. There is no bruit. There is no goiter. There is no lymphadenopathy. Trachea is central. LUNGS: Clear to auscultation and percussion. HEART: S1 and S2 is heard. There is no S3 gallop. There is no S4 gallop. There is a systolic murmur in the left sternal border and the apex. There is also a murmur of significant tricuspid regurgitation present. There is no rub. S1 is of abnormal intensity. ABDOMEN: Soft, nontender. There is no hepatosplenomegaly. Bowel sounds are well heard. EXTREMITIES: Femorals are diminished. There is no femoral bruit. Leg pulses are diminished. There is 1- pedal edema which is slightly better than yesterday bilaterally in the lower extremity. There is no cyanosis or clubbing. There is no calf tenderness. There is no evidence of DVT. There is no cellulitis. Capillary refill is normal. CENTRAL NERVOUS SYSTEM: The patient is conscious, awake, slightly hard of hearing but without any focal deficits. PSYCHIATRIC: The patient's judgment and insight are intact. Her affect is normal. DIAGNOSTICS: The patient's 24-hour intake is 1887 mL; output is 1200 mL. IMPRESSION: 1. BILATERAL LEG EDEMA SECONDARY TO RIGHT HEART FAILURE AND SEVERE PULMONARY HYPERTENSION, SLIGHTLY IMPROVED. 2. ACUTE ON CHRONIC RIGHT HEART SYSTOLIC FAILURE WITH REDUCED RIGHT VENTRICULAR SYSTOLIC FUNCTION. 3. COPD, AT PRESENT NO ACUTE EXACERBATION. 4. HYPOTENSION. Note that the patient is off dopamine; at the present the patient is on midodrine at 10 mg p.o. t.i.d. given at 6 a.m., 11 a.m. and 3 p.m. 5. PAROXYSMAL ATRIAL FIBRILLATION, AT PRESENT NO RECURRENCE. The patient is in sinus rhythm. 6. DIABETES MELLITUS TYPE 2 WITHOUT COMPLICATIONS. RECOMMENDATIONS: Continue the patient on Lasix p.o. Continue Xarelto. Continue spironolactone. She is on metoprolol 25 mg p.o. daily. Would recommend stopping the metoprolol and placing the patient on amlodipine or Cardizem CD. Continue spironolactone. Will try to put the patient on an ANCELMO inhibitor. TIME SPENT: Note 30 minutes spent on this patient with more than 50% of the time spent on direct patient care and medication reviewed and adjusted and also discussed with attending physician on the case. This is a case which requires highly complex medical decision making. Will follow with you. DICTATING PHYSICIAN: LJ GUADALUPE M.D. [id number] JOSÉ MIGUEL#: [id number] ID: [id number] JOB#: [id number] ACCT: [id number] cc: >
[2016-11-01] MEDS: DILTIAZEM HCL 30 MG TABLET PO SCH ×2 (05:53→14:32)
[2016-11-01] MEDS: FUROSEMIDE ORAL SOLN 40 MG/5 ML UDCUP PO SCH ×3 (05:54→22:38)
[2016-11-01] MEDS: METFORMIN HCL 500 MG TABLET PO SCH ×2 (08:57→16:58)
[2016-11-01] MEDS: RIVAROXABAN 15 MG TABLET PO SCH (09:39)
[2016-11-01] MEDS: CYANOCOBALAMIN (VITAMIN B-12) 1,000 MCG TABLET PO SCH (09:39)
[2016-11-01] MEDS: LISINOPRIL 5 MG TABLET PO SCH (09:39)
[2016-11-01] MEDS: MIDODRINE HCL 5 MG TABLET PO SCH ×3 (09:39→17:05)
[2016-11-01] MEDS: SPIRONOLACTONE 25 MG TABLET PO SCH (09:40)
[2016-11-01] MEDS: ATORVASTATIN CALCIUM 10 MG TABLET PO SCH (09:40)
[2016-11-01] MEDS: PHARMACY COMMUNICATION ORDER MC SCH (17:06)
--- NOTE | 2016-11-01 18:18 | PDOC PROGRESS REPORT ---
Subjective Progress Note for:: 11/01/16 Subjective:: She was seen by the bedside, continue present treatment Physical Exam Vital Signs: Temp Pulse Resp BP Pulse Ox 97.8 F 85 16 106/60 100 11/01/16 15:01 11/01/16 15:01 11/01/16 15:01 11/01/16 15:01 11/01/16 15:01 Intake & Output 10/31/16 11/01/16 11/02/16 06:59 06:59 06:59 Intake Total 1887 1013 600 Output Total 1200 900 250 Balance 687 113 350 Weight 48.5 kg 48.1 kg General appearance: PRESENT: no acute distress Eye exam: PRESENT: PERRLA Respiratory exam: PRESENT: clear to auscultation chip Cardiovascular exam: PRESENT: +S1, +S2 GI/Abdominal exam: PRESENT: soft Results Laboratory Results: 10/25/16 17:51 10/30/16 04:34 10/25/16 17:57 NT-Pro-B Natriuret Pep [id number] H Impressions: Chest X-Ray 10/25/16 00:00 IMPRESSION: Left retrocardiac airspace disease either atelectasis or pneumonia. Cardiomegaly unchanged. Knee X-Ray 10/28/16 00:00 IMPRESSION: No significant findings. Assessment & Plan - Diagnosis (1) Anasarca Is this a current diagnosis for this admission?: Yes (2) Body mass index (BMI) 19 or less, adult Is this a current diagnosis for this admission?: Yes (3) Chronic atrial fibrillation Is this a current diagnosis for this admission?: Yes (4) Cor pulmonale Is this a current diagnosis for this admission?: Yes (5) Diabetes mellitus type 2 in nonobese Is this a current diagnosis for this admission?: Yes (6) Right heart failure with reduced right ventricular function Is this a current diagnosis for this admission?: Yes (7) Hypotension Qualifiers: Hypotension type: unspecified hypotension type Qualified Code(s): I95.9 - Hypotension, unspecified Is this a current diagnosis for this admission?: Yes
--- NOTE | 2016-11-01 22:04 | PROGRESS NOTE E ---
Progress Note NAME: AILYN ROMERO : 1940 AGE: 76Y DATE: 11/01/2016 ROOM: 327 SUBJECTIVE: Note that the patient states her shortness of breath is much improved. She still has orthopnea. Her leg edema is much improved and has only trace leg edema today. She denies any chest pain or discomfort. There is no PND. There is no palpitation. There is no recurrence of her atrial fibrillation. After discussions with the nurses, it seems that the patient, in spite of her blood pressure, has been able to get small doses of her ANCELMO inhibitor and her Cardizem. She is still on the midodrine which is keeping her blood pressure at acceptable range with a mean arterial pressure of 75. There are no TIA or CVA symptoms. OBJECTIVE: GENERAL: One examination, the patient is of frail build and appears to be chronically ill. VITAL SIGNS: She is afebrile with a temperature of 97.9 degrees Fahrenheit orally. Pulse is *------* beats per minute. O2 saturations are 99% on 2 liters per nasal cannula. HEAD: Atraumatic/normocephalic. EYES: Pupils are equal, round, regular, reactive to light and accommodation. Extraocular movements are normal. There is no conjunctival pallor. There is no scleral icterus. EARS, NOSE, AND THROAT: Negative. NECK: Supple. There is no JVD. Carotids are equal. There is no bruit. There is no goiter. There is no lymphadenopathy. Trachea is central. LUNGS: Clear to auscultation and percussion. HEART: S1, S2 is heard. There is no S3 gallop. There is no S4 gallop. There is a systolic murmur in the left sternal border and the apex. There is also a murmur of significant tricuspid regurgitation present. There is no rub. S1 is of normal intensity. ABDOMEN: Soft, nontender. There is no hepatosplenomegaly. Bowel sounds are well heard. EXTREMITIES: Femorals are diminished. There is no femoral bruit. Leg pulses are diminished. There is trace pedal edema bilaterally. There is no cyanosis or clubbing. There is no calf tenderness. There is no evidence of DVT. There is no cellulitis. Capillary refill is normal. CENTRAL NERVOUS SYSTEM: The patient is conscious, awake, alert, slightly hard of hearing but without any focal deficits. PSYCHIATRIC: The patient's judgement and insight are intact. Her affect is normal. FLUID BALANCE: The patient's 24-hour intake is 1013 mL, output is 900 mL. IMPRESSION: 1. BILATERAL LEG EDEMA WHICH IS MUCH IMPROVED, SECONDARY TO RIGHT HEART FAILURE AND SEVERE PULMONARY HYPERTENSION, MUCH IMPROVED. 2. ACUTE ON CHRONIC RIGHT HEART SYSTOLIC FAILURE WITH REDUCED RIGHT VENTRICULAR SYSTOLIC FUNCTION. 3. COPD, AT PRESENT NO ACUTE EXACERBATION. 4. HYPOTENSION. NOTE THAT THE PATIENT IS OFF DOPAMINE. AT PRESENT THE PATIENT IS ON MIDODRINE 10 MG P.O. T.I.D. GIVEN AT 6:00 A.M., 11:00 A.M., AND 3:00 P.M. 5. PAROXYSMAL ATRIAL FIBRILLATION WITH NO RECURRENCE. 6. DIABETES MELLITUS TYPE 2 WITHOUT COMPLICATIONS. RECOMMENDATIONS: Will stop the patient's Cardizem *------* mg p.o. q.8 h. and change it to Cardizem CD 120 mg p.o. t.i.d. from tomorrow. Continue ANCELMO inhibitor. Continue diuretics. Continue her spironolactone. Continue Xarelto. The patient is back on metformin. Note 30 minutes spent on this patient with more than 50% of the time spent on direct patient care. Her medications have been reviewed and adjusted and also in discussions with the other caregivers formulating a care plan for the patient. Note that this case is a highly complex medical decision making one in view of the patient's hypotension and need to treat the patient's right heart failure. DICTATING PHYSICIAN: LJ GUADALUPE M.D. [id number] [facility]#: [id number] ID: [id number] JOB#: [id number] ACCT: [id number] cc:LJ GUADALUPE M.D. >
[2016-11-02] MEDS: FUROSEMIDE ORAL SOLN 40 MG/5 ML UDCUP PO SCH ×2 (05:37→16:32)
[2016-11-02] MEDS ORDERED: DILTIAZEM HCL 120 MG CAP.SR.24H PO SCH (10:00)
[2016-11-02] MEDS: METFORMIN HCL 500 MG TABLET PO SCH ×2 (10:02→16:32)
[2016-11-02] MEDS: MIDODRINE HCL 5 MG TABLET PO SCH ×2 (10:14→16:31)
[2016-11-02] MEDS: SPIRONOLACTONE 25 MG TABLET PO SCH (10:14)
[2016-11-02] MEDS: RIVAROXABAN 15 MG TABLET PO SCH (10:14)
[2016-11-02] MEDS: ATORVASTATIN CALCIUM 10 MG TABLET PO SCH (10:14)
[2016-11-02] MEDS: CYANOCOBALAMIN (VITAMIN B-12) 1,000 MCG TABLET PO SCH (10:14)
[2016-11-02] MEDS: LISINOPRIL 5 MG TABLET PO SCH (10:15)
[2016-11-02 13:56] VITALS: BP 132/84
--- NOTE | 2016-11-02 14:27 | PDOC DISCHARGE SUMMARY ---
General - Admit/Disc Date/PCP Admission Date/Primary Care Provider: 10/26/16 01:16 JONATAN LÓPEZ MD Discharge Date: 11/02/16 - Discharge Diagnosis (1) Anasarca Is this a current diagnosis for this admission?: Yes (2) Body mass index (BMI) 19 or less, adult Is this a current diagnosis for this admission?: Yes (3) Chronic atrial fibrillation Is this a current diagnosis for this admission?: Yes (4) Cor pulmonale Is this a current diagnosis for this admission?: Yes (5) Diabetes mellitus type 2 in nonobese Is this a current diagnosis for this admission?: Yes (6) Right heart failure with reduced right ventricular function Is this a current diagnosis for this admission?: Yes (7) Hypotension Is this a current diagnosis for this admission?: Yes - Additional Information Resuscitation Status: Full Code Discharge Activity: Activity As Tolerated, Balance Activity w/Rest, Weigh Daily Home Medications: Atorvastatin Calcium [Lipitor 10 mg Tablet] 10 mg PO DAILY 06/15/16 Metoprolol Succinate [Toprol Xl 25 mg Tab.sr] 25 mg PO DAILY 06/15/16 Rivaroxaban [Xarelto 15 mg Tablet] 15 mg PO DAILY 06/15/16 Cyanocobalamin (Vitamin B-12) [Vitamin B-12 SL 1000 mcg Tablet] 1,000 mcg SL DAILY 10/12/16 Acetaminophen [Tylenol 325 mg Tablet] 650 mg PO Q4HP PRN #0 tablet 11/02/16 Furosemide [Lasix Oral Soln 40 mg/5 ml Udcup] 40 mg PO Q8 #450 ml 11/02/16 Lisinopril [Prinivil 5 mg Tablet] 2.5 mg PO DAILY #90 tablet 11/02/16 Metformin HCl [Glucophage] 1,000 mg PO DAILY #0 11/02/16 History of Present Illness History of Present Illness: Patient is a 76-year-old female with multiple comorbid conditions ,right ventricular heart failure, cor pulmonale, she was just discharged from this hospital on October 12, 2016 she was admitted and managed for anasarca,Since she was discharged she has had many office visit because of nonresponsive anasarca involving the extremities, the edema of the thigh is extremely tenacious affecting the abdominal wall. The oral furosemide is not effective in the mobilization of the fluid from the leg and the abdominal wall, the other problem with this patient is that she is hypotensive, the last time she was in the hospital she was treated with furosemide infusion she also had intravenous vasopressor, dopamine she has underlining chronic obstructive pulmonary disease with cor pulmonale. Compression stockings is not effective either. She is admitted again to the hospital for management, consultation will be requested from cardiology Hospital Course Hospital Course: Patient was admitted for evaluation of right heart failure with anasarca. She was treated with furosemide infusion, she also had hypotension requiring intravenous vasopressor with dopamine. 2D echo was done, it demonstrated normal ejection fraction of left ventricle, the left ventricle was severely dilated with reduced systolic function,right atrium dilated , she was seen in consultation by cardiology, Dr. lees and Dr. Alberts she was medically optimized and medications were adjusted. Physical Exam Vital Signs: Temp Pulse Resp BP Pulse Ox 97.4 F 86 18 132/84 H 100 11/02/16 13:42 11/02/16 13:42 11/02/16 13:42 11/02/16 13:42 11/02/16 13:42 Intake & Output 11/01/16 11/02/16 11/03/16 06:59 06:59 06:59 Intake Total 1013 875 200 Output Total 900 1450 450 Balance 113 -575 -250 Weight 48.1 kg 46.5 kg General appearance: PRESENT: no acute distress Eye exam: PRESENT: PERRLA Respiratory exam: PRESENT: clear to auscultation chip Cardiovascular exam: PRESENT: +S1, +S2 GI/Abdominal exam: PRESENT: soft Extremities exam: PRESENT: pedal edema Neurological exam: PRESENT: alert, CN II-XII grossly intact Results Laboratory Results: 10/25/16 17:51 10/30/16 04:34 10/25/16 17:57 NT-Pro-B Natriuret Pep 65750 H Impressions: Chest X-Ray 10/25/16 00:00 IMPRESSION: Left retrocardiac airspace disease either atelectasis or pneumonia. Cardiomegaly unchanged. Knee X-Ray 10/28/16 00:00 IMPRESSION: No significant findings.
--- NOTE | 2016-11-02 19:38 | PROGRESS NOTE E ---
Progress Note NAME: AILYN ROMERO : 1940 AGE: 76Y DATE: 11/02/2016 ROOM: 327 SUBJECTIVE: The patient denies any chest pain or discomfort. There is no PND. She still has orthopnea. She only has trace leg edema. She has no TIA or CVA symptoms. There is no bleeding on Xarelto, and the patient has no TIA or CVA symptoms. She still has some orthopnea. OBJECTIVE: GENERAL: On examination the patient is of frail build and appears to be chronically ill. VITAL SIGNS: She is afebrile with a temperature of 97.4 degrees Fahrenheit. Pulse is 86 beats per minute. Blood pressure 100/59. Respirations are 18 per minute. O2 saturations are 100% on 2 liters nasal cannula. HEAD: Atraumatic/normocephalic. EYES: Pupils are equal, round, regular, reactive to light and accommodation. Extraocular movements are normal. There is no conjunctival pallor. There is no scleral icterus. EARS, NOSE, AND THROAT: Negative. NECK: Supple. There is no JVD. Carotids are equal. There is no bruit. There is no goiter. There is no lymphadenopathy. Trachea is central. LUNGS: Clear to auscultation and percussion. HEART: S1, S2 is heard. There is no S3 gallop. There is no S4 gallop. There is a systolic murmur in the left sternal border and the apex. There is also murmur secondary to tricuspid regurgitation present. There is no rub. S1 is of normal intensity. ABDOMEN: Soft, nontender. There is no hepatosplenomegaly. Bowel sounds are well heard. EXTREMITIES: Femorals are diminished. There is no femoral bruit. There is trace leg pedal edema bilaterally. Her leg pulses are diminished. There is no cyanosis or clubbing. There is no calf tenderness. There is no evidence of DVT. There is no cellulitis. Capillary refill is normal. CENTRAL NERVOUS SYSTEM: The patient is conscious, alert, slightly hard of hearing but without any focal deficits. PSYCHIATRIC: The patient's judgement and insight are intact. Her affect is normal. FLUID BALANCE: The patient's 24-hour intake is 875 mL, output is 1450 mL. IMPRESSION: 1. BILATERAL LEG EDEMA WHICH HAS ALMOST RESOLVED WITH ONLY TRACE EDEMA SECONDARY TO RIGHT HEART FAILURE AND SEVERE PULMONARY HYPERTENSION. 2. ACUTE ON CHRONIC RIGHT HEART SYSTOLIC FAILURE WITH REDUCED RIGHT VENTRICULAR SYSTOLIC FUNCTION, MUCH IMPROVED. 3. COPD WITH ACUTE EXACERBATION. 4. HYPOTENSION. Note that the patient is on midodrine 10 mg p.o. t.i.d. which allows the patient to be on small dose of ANCELMO inhibitor that is lisinopril 2.5 mg p.o. daily, and also the patient is on Cardizem CD 120 mg p.o. daily for her pulmonary hypertension. Would recommend continuing this. 5. ATRIAL FIBRILLATION WITH NO RECURRENCE, CONTINUE XARELTO. 6. DIABETES MELLITUS WITHOUT COMPLICATIONS. RECOMMENDATIONS: The patient is being discharged. The patient wants to follow up with me in the office. We will have them make an appointment for her to follow up with me. Would recommend discharging the patient on Cardizem CD 120 mg p.o. daily, lisinopril 2.5 mg p.o. daily, Xarelto 15 mg p.o. daily, and her metformin for diabetes. Also would recommend that the patient be given Lasix 40 mg p.o. daily and also continue the patient's atorvastatin for the hyperlipidemia. Will follow the patient in the office. Will sign off. Discussed with the attending physician. Note 30 minutes spent on this patient with more than 50% of this patient spent on direct patient care and also reviewing the patient's medications and discussions of her coordination of care post discharge with the patient and with the attending physician, Dr. Cheng. Note this at present involves moderate complex medical decision making. Of note that patient is FULL CODE. Her daughter is her surrogate healthcare decision maker. DICTATING PHYSICIAN: LJ GUADALUPE M.D. [id number] PHY#: [id number] ID: [id number] JOB#: [id number] ACCT: [id number] cc:LJ GUADALUPE M.D. >
== END 2016-11-02 17:54 | disposition home or self-care (01) | DRG 292 ==
LOC: 3S 16:06 → UNDOADMIN 16:06 → 3S 10-26 01:16
PROVIDERS: ADMIT Internal Medicine; ATTEND Internal Medicine
DX: I11.0 Hypertensive heart disease with heart failure (principal); Z68.1 Body mass index [BMI] 19.9 or less, adult; I50.23 Acute on chronic systolic (congestive) heart failure; R60.1 Generalized edema; I48.2 Chronic atrial fibrillation; E11.9 Type 2 diabetes mellitus without complications; I95.9 Hypotension, unspecified; I27.2 Other secondary pulmonary hypertension; E78.5 Hyperlipidemia, unspecified; J44.9 Chronic obstructive pulmonary disease, unspecified; M19.90 Unspecified osteoarthritis, unspecified site; H90.3 Sensorineural hearing loss, bilateral; R63.6 Underweight; Z87.891 Personal history of nicotine dependence; Z79.899 Other long term (current) drug therapy; Z88.8 Allergy status to other drugs, medicaments and biological substances; Z91.013 Allergy to seafood
CPT/HCPCS: 36415; 71010; 80048; 80076; 82570; 83880; 84156; 85025; 93005; 93010; 93306; G8978-GP; G8979-GP; J1265; J1940; J3490; J7050

== ENCOUNTER 2016-12-23 04:48 | Inpatient (IN) | payer MEDICARE, OTHER ==
[2016-12-23] MEDS ORDERED: ASPIRIN 81 MG TABLET, CHEWABLE PO ONE (04:59)
[2016-12-23] MEDS ORDERED: DILTIAZEM HCL INJ 25 MG/5 ML VIAL IV ONE (05:00)
[2016-12-23 05:12] LABS: ABSOLUTE BASOPHILS # (AUTO) 0.1 10^3/uL (0.0-0.2); ABSOLUTE MONOCYTES (AUTO) 0.2 10^3/uL (0.1-1.4); ABSOLUTE NEUT (AUTO) 4.5 10^3/uL (1.7-8.2); BASOPHILS % (AUTO) 0.9 % (0-2); HEMATOCRIT 32.4 % (36.0-47.0); HEMOGLOBIN 9.8 g/dL (12.0-15.5); LYMPHOCYTES % (AUTO) 17.8 % (13-45); MEAN CORPUSCULAR HGB CONC 30.2 g/dL (32.0-36.0); MEAN CORPUSCULAR VOLUME 93 fl (80-97); MONOCYTES % (AUTO) 3.6 % (3-13); RED BLOOD COUNT 3.48 10^6/uL (3.72-5.28); RED CELL DISTRIBUTION WIDTH 19.9 % (11.5-14.0); SEGMENTED NEUTROPHILS % (AUTO) 77.7 % (42-78); WHITE BLOOD COUNT 5.7 10^3/uL (4.0-10.5)
[2016-12-23 05:20] LABS: PROTHROMBIN TIME 29.6 SEC (11.4-15.4)
--- NOTE | 2016-12-23 05:28 | ER Document Report ---
ED Cardiac - General Mode of Arrival: Medic Information source: Patient, Emergency Med Personnel TRAVEL OUTSIDE OF THE [place] IN LAST 30 DAYS: No <UBALDO KO - Last Filed: 12/23/16 06:14> <DIANE HAYWOOD - Last Filed: 12/23/16 06:55> - General Chief Complaint: Palpitations Stated Complaint: PALPITATIONS Time Seen by Provider: 12/23/16 04:53 Notes: Patient is a 76-year-old female presented emergency department via EMS for tachycardia. Patient was found with a heart rate of 173 bpm. Patient states she has been very tired and is hard of hearing. Patient's daughter called EMS and states that the patient does have history of a rapid heart rate. Patient is on 2 L of oxygen all the time. Patient also has a cough but denies any chest pain, abdominal pain or other symptoms. Patient's primary care physician is Dr. López. (UBALDO KO) - Related Data Allergies/Adverse Reactions: iodine [Iodine] Allergy (Unknown, Verified 04/01/12 14:41) seafood Allergy (Unknown, Uncoded 04/01/12 14:41) Anaphylaxis Past Medical History - General Information source: Patient, [facility] Records - Social History Smoking Status: Unknown if Ever Smoked Family History: None Patient has suicidal ideation: No Patient has homicidal ideation: No - Past Medical History Cardiac Medical History: Reports: Hx Atrial Fibrillation - Severe pulmonary hypertension, right heart failure, Hx Hypercholesterolemia, Hx Hypertension Pulmonary Medical History: Reports: Hx COPD Endocrine Medical History: Reports: Hx Diabetes Mellitus Type 2 Musculoskeltal Medical History: Reports Hx Arthritis Surgical Hx: Negative - Immunizations Hx Diphtheria, Pertussis, Tetanus Vaccination: No <UBALDO KO - Last Filed: 12/23/16 06:14> Review of Systems - Review of Systems Constitutional: No symptoms reported EENT: No symptoms reported Cardiovascular: See HPI, Heart racing. denies: Chest pain Respiratory: See HPI, Cough Gastrointestinal: No symptoms reported. denies: Abdominal pain Genitourinary: No symptoms reported Female Genitourinary: No symptoms reported Musculoskeletal: No symptoms reported Skin: No symptoms reported Hematologic/Lymphatic: No symptoms reported Neurological/Psychological: No symptoms reported -: Yes All other systems reviewed and negative <UBALDO KO - Last Filed: 12/23/16 06:14> Physical Exam - Vital signs Interpretation: Hypotensive, Tachycardic <UBALDO KO - Last Filed: 12/23/16 06:14> - Extremities General lower extremity: No: Edema <DIANE HAYWOOD - Last Filed: 12/23/16 06:55> - Vital signs Vitals: Temp Pulse Resp BP Pulse Ox 97.6 F 129 H 28 H 86/58 L 93 12/23/16 04:50 12/23/16 04:50 12/23/16 04:50 12/23/16 04:50 12/23/16 04:50 - Notes Notes: GENERAL: Alert, interacts well, hard of hearing, cachectic. Mild distress. HEAD: Normocephalic, atraumatic. EYES: Appear normal. Pupils equal, round, and reactive to light. ENT: Moist mucus membranes, tongue midline. NECK: Full range of motion. Supple. Trachea midline. LUNGS: Clear to auscultation bilaterally, no wheezes, rales, or rhonchi. No respiratory distress. HEART: Tachycardia. Irregularly irregular. No murmurs, gallops, or rubs. ABDOMEN: Soft, non-tender. Non-distended. Normal bowel sounds. EXTREMITIES: Moves all 4 extremities spontaneously. Normal strength. No edema. Cachectic. NEUROLOGICAL: Alert and oriented x3. Normal speech. No focal neurological deficits. GSC 15. PSYCH: Normal affect, normal mood. SKIN: Warm, dry, normal turgor. No rashes or lesions noted. (UBALDO KO) Course - Laboratory Result Diagrams: 12/23/16 04:56 12/23/16 04:56 <UBALDO KO - Last Filed: 12/23/16 06:14> - Laboratory Result Diagrams: 12/23/16 04:56 12/23/16 04:56 - Diagnostic Test Radiology reviewed: Reports reviewed - Consults Cade Consulted provider: will come to ER <DIANE HAYWOOD - Last Filed: 12/23/16 06:55> - Re-evaluation Re-evalutation: 12/23/16 06:36 Patient is a 76-year-old female who comes in with rapid atrial fibrillation. Patient had been given adenosine in the field. Patient given 10 mg of Cardizem here and is now in a sinus rhythm at 99. Patient is also noted to be hypotensive. Patient is in acute renal failure with a BUN of greater than 120 and a creatinine of 3.3. Patient's CO2 is 8. Glucose on chemistry is 35. Accu -Chek in room is 30. Patient given D50 and started on bicarb drip with D5. Patient discussed with nephrology recommends 40 mg of Lasix IV at this time. Patient discussed with Dr. Pulliam who will admit the patient. Of note, dialysis beds are available although there are not beds available in the IMCU or ICU. The patient can be dialyzed in the ER if necessary. Of note, scant urine in Miranda catheter Patient has no complaints at this time. Heart rate is 98 with blood pressure 99 /66 in this 42 kg patient. Patient will be admitted to the ICU. (DIANE HAYWOOD) - Vital Signs Vital signs: Temp Pulse Resp BP Pulse Ox 97.6 F 129 H 28 H 86/58 L 93 12/23/16 04:50 12/23/16 04:50 12/23/16 04:50 12/23/16 04:50 12/23/16 04:50 - Laboratory Laboratory results interpreted by me: 12/23/16 12/23/16 12/23/16 04:56 04:56 04:56 RBC 3.48 L Hgb 9.8 L Hct 32.4 L MCHC 30.2 L RDW 19.9 H PT 29.6 H Potassium 5.7 H Carbon Dioxide 8 L* Anion Gap 30 H BUN > 120 H Creatinine 3.31 H Est GFR ( Amer) 16 L Est GFR (Non-Af Amer) 13 L Glucose 35 L* POC Glucose Direct Bilirubin 0.6 H AST 37 H Alkaline Phosphatase 36 L 12/23/16 06:23 RBC Hgb Hct MCHC RDW PT Potassium Carbon Dioxide Anion Gap BUN Creatinine Est GFR ( Amer) Est GFR (Non-Af Amer) Glucose POC Glucose 32 L* Direct Bilirubin AST Alkaline Phosphatase - Consults Cade Reason for consultation: 12/23/16 06:35 ARF, recommends lasix 40mg IV (DIANE HAYWOOD) Critical Care Note - Critical Care Note Total time excluding time spent on procedures (mins): 60 - Evaluation and management of rapid atrial fibrillation, evaluation and management of acute oliguric renal failure, consultation with specialist, coordination of admission , counseling of patient and family <DIANE HAYWOOD - Last Filed: 12/23/16 06:55> Discharge <UBALDO KO - Last Filed: 12/23/16 06:14> - Discharge Admitting Provider: [facility] Unit Admitted: ICU <DIANE HAYWOOD - Last Filed: 12/23/16 06:55> - Discharge Clinical Impression: Rapid atrial fibrillation, Acute renal insufficiency, Dehydration, Body mass index (BMI) 19 or less, adult, Protein-calorie malnutrition, moderate, Hypoglycemia Condition: Fair Disposition: ADMITTED INPATIENT Referrals: JONATAN LÓPEZ MD [Primary Care Provider] - Follow up as needed Scribe Attestation: 12/23/16 06:55 I personally performed the services described in the documentation, reviewed and edited the documentation which was dictated to the scribe in my presence, and it accurately records my words and actions. (DIANE HAYWOOD) Scribe Documentation - Scribe Written by Scribboni:: Ruslan Estes, 12/23/16 6:00 acting as scribe for :: Andrzej <UBALDO KO - Last Filed: 12/23/16 06:14>
--- NOTE | 2016-12-23 05:32 | RADIOLOGY REPORT (SQ) ---
EXAM DESCRIPTION: CHEST SINGLE VIEW COMPLETED DATE/TIME: 12/23/2016 5:19 am REASON FOR STUDY: SOB COMPARISON: 10/25/2016. CT, 04/01/2012. EXAM PARAMETERS: NUMBER OF VIEWS: One view. TECHNIQUE: Single frontal radiographic view of the chest acquired. RADIATION DOSE: NA LIMITATIONS: Frontal radiograph only. FINDINGS: LUNGS AND PLEURA: Mild interstitial markings. Moderate left lung volume. MEDIASTINUM AND HILAR STRUCTURES: No masses. Contour normal. HEART AND VASCULAR STRUCTURES: Moderate to severe enlargement of the cardiac silhouette. BONES: Moderate scoliotic curvature. HARDWARE: None in the chest. OTHER: No other significant finding. IMPRESSION: No suspicious interval change. Moderate cardiac enlargement, chronic. TECHNICAL DOCUMENTATION: JOB ID: [id number]
[2016-12-23 05:36] LABS: ALANINE AMINOTRANSFERASE 21 U/L (9-52); ALKALINE PHOSPHATASE 36 U/L (38-126); ASPARTATE AMINO TRANSFERASE 37 U/L (14-36); BILIRUBIN,DIRECT 0.6 mg/dL (0.0-0.4); BILIRUBIN,TOTAL 0.8 mg/dL (0.2-1.3); CALCIUM 9.3 mg/dL (8.4-10.2); CHLORIDE 100 mmol/L (98-107); CREATINE KINASE 80 U/L (30-135); CREATININE RESULT 3.31 mg/dL (0.52-1.25); POTASSIUM 5.7 mmol/L (3.6-5.0); SODIUM 138.3 mmol/L (137-145); TOTAL PROTEIN 6.6 g/dL (6.3-8.2)
[2016-12-23 05:48] LABS: CREATINE KINASE MB 2.9 ng/mL (<4.55)
[2016-12-23] MEDS ORDERED: NORMAL SALINE 1000 ML 1,000 ML IV PRN (06:03)
[2016-12-23 06:13] LABS: BLOOD UREA NITROGEN > 120 mg/dL (7-20); TROPONIN I 0.038 ng/mL
[2016-12-23 06:14] LABS: ANION GAP 30 (5-19); CARBON DIOXIDE 8 mmol/L (22-30); GLUCOSE 35 mg/dL (75-110)
[2016-12-23] MEDS ORDERED: DEXTROSE 50%-WATER 25 GM/50 ML DISP.SYRIN IV ONE ×2 (06:25→06:27)
[2016-12-23] MEDS ORDERED: FUROSEMIDE INJ/PF 40 MG/4 ML SDV IV ONE (06:32)
[2016-12-23] MEDS ORDERED: DEXTROSE 5%-1/2 NORMAL SALINE 100 ML IV ONE (06:35)
[2016-12-23] MEDS ORDERED: FUROSEMIDE INJ/PF 20 MG/2 ML SDV IV ONE (06:40)
[2016-12-23] MEDS ORDERED: DEXTROSE 5%-1/2 NORMAL SALINE 1,000 ML IV ONE (06:45)
[2016-12-23] MEDS ORDERED: DEXTROSE 5%-WATER 1000 ML 1,000 ML with SODIUM BICARBONATE 150 MEQ IV PRN ×2 (06:46)
[2016-12-23] MEDS ORDERED: SODIUM BICARBONATE 8.4% INJ 50 MEQ/50 ML DISP.SYRIN ONE (06:59)
--- NOTE | 2016-12-23 08:00 | EKG REPORT ---
SEVERITY:- ABNORMAL ECG - SINUS TACHYCARDIA, MORE LIKE ATRIAL FLUTTER. LOW VOLTAGE WITH RIGHT AXIS DEVIATION NONSPECIFIC T ABNORMALITIES, DIFFUSE LEADS BORDERLINE PROLONGED QT INTERVAL : Confirmed by: Gage Cloud MD 23-Dec-2016 07:59:39
--- NOTE | 2016-12-23 08:01 | EKG REPORT ---
SEVERITY:- ABNORMAL ECG - ATRIAL FLUTTER, A-RATE 205 IVCD, CONSIDER ATYPICAL RBBB ANTERIOR INFARCT, AGE INDETERMINATE : Confirmed by: Gage Cloud MD 23-Dec-2016 08:00:19
[2016-12-23 08:07] LABS: ARTERIAL BLOOD BASE EXCESS -25.3 mmol/L; ARTERIAL BLOOD O2 SATURATION 96.8 % (94-98)
[2016-12-23] MEDS ORDERED: IPRATROPIUM/ALBUTEROL 0.5-2.5 MG/3 ML AMPUL NEB PRN (08:22)
[2016-12-23] MEDS ORDERED: ACETAMINOPHEN 325 MG TABLET PO PRN ×2 (08:22→08:52)
[2016-12-23] MEDS ORDERED: DIPHENHYDRAMINE HCL 25 MG CAPSULE PO PRN (08:52)
[2016-12-23] MEDS ORDERED: NORMAL SALINE 250 ML IV PRN ×2 (08:52)
[2016-12-23] MEDS ORDERED: NORMAL SALINE 500 ML IV ONE (09:30)
[2016-12-23] MEDS ORDERED: HEPARIN SOD (PORCINE) 1,000 UNIT/ML 10 ML VIAL IV PRN (09:32)
[2016-12-23] MEDS ORDERED: FAMOTIDINE INJ/PF 20 MG/2 ML SDV IV SCH (10:00)
[2016-12-23 10:06] LABS: CREATINE KINASE MB 3.62 ng/mL (<4.55); TROPONIN I 0.062 ng/mL
[2016-12-23] MEDS ORDERED: NOREPINEPHRINE BITARTRATE INJ/PF 4 MG/4 ML SDV IV ONE (10:57)
[2016-12-23] MEDS ORDERED: DEXTROSE 5%-WATER 250 ML with NOREPINEPHRINE BITARTRATE 4 MG IV PRN ×2 (11:00)
[2016-12-23] MEDS ORDERED: MIDODRINE HCL 5 MG TABLET PO ONE (11:00)
[2016-12-23] MEDS ORDERED: CALCIUM GLUCONATE 1,000 MG in DEXTROSE 5%-WATER 50 ML IV ONE (11:11)
[2016-12-23] MEDS ORDERED: DIPHENHYDRAMINE HCL 25 MG/10 ML UDC PO PRN (11:27)
--- NOTE | 2016-12-23 11:27 | PDOC H&P ---
History of Present Illness Admission Date/PCP: 12/23/16 08:22 JONATAN LÓPEZ MD Patient complains of: palpitation/sob History of Present Illness: AILYN ROMERO is a 76 year old female Is a 76-year-old female with a patient of Dr. López with a significant history of the right-sided heart failure chronic A. fib and cor pulmonaleIn the COPD came to the emergency department the complaint of palpitation and shortness of the breathWith the patient's found to be rapid A. fib and patient was given Cardizem's IV 1 but patient was also hypotensiveAnd patient was found severe metabolic acidosis and also found the acute renal failure and patient pH was 6.96 and patient has 03 is only 5 . When I saw the patient in the ER patient's was still hypotensive but alert awakeIn talking patient's respiratory rate is normalBut patients clinical pictures look like very severe metabolic acidosis patient was started on sodium bicarb drip and nephrology was consultedPatient also seen by the cardiology in the ER started on a Levophed dripIs also giving the IV fluid Patient INR was 2.66 but patient's currently taking the Xarelto and the surgeon unable to put the dialysis catheter Patients at this point the sister was in the room discussed with the patient's conditions with the critical with severe metabolic acidosis in the renal failure and hypotension's with a cardio renal syndromeWith a not a very good prognosis as per discussed with the Dr. 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 systems Past Medical History Cardiac Medical History: Reports: Atrial Fibrillation - Severe pulmonary hypertension, right heart failure, Hyperlipidema, Hypertension Denies: Congestive Heart Failure, Coronary Artery Disease, Myocardial Infarction, Peripheral Vascular Disease, Heart Murmur Pulmonary Medical History: Reports: Chronic Obstructive Pulmonary Disease (COPD) Denies: Sleep Apnea, Tuberculosis Endocrine Medical History: Reports: Diabetes Mellitus Type 2 Denies: Hyperthyroidism, Hypothyroidism Musculoskeltal Medical History: Reports: Arthritis Denies: Fibromyalgia Psychiatric Medical History: Denies: Depression Past Surgical History Past Surgical History: Denies: Amputation, Pacemaker Social History Smoking Status: Unknown if Ever Smoked Frequency of Alcohol Use: None Hx Recreational Drug Use: No Hx Prescription Drug Abuse: No Family History Family History: None, Reviewed & Not Pertinent Parental Family History Reviewed: Yes Children Family History Reviewed: Yes Sibling(s) Family History Reviewed.: Yes Medication/Allergy Home Medications: Atorvastatin Calcium 10 PO DAILY 12/23/16 Cyanocobalamin (Vitamin B-12) [Vitamin B12] 1 PO DAILY 12/23/16 Furosemide [Lasix Oral Soln 40 mg/5 ml Udcup] 12/23/16 Lisinopril 1.5 tab PO DAILY 12/23/16 Metformin HCl [Glucophage] PO BID 12/23/16 Metoprolol Succinate PO DAILY 12/23/16 Rivaroxaban [Xarelto 15 mg Tablet] PO DAILY 12/23/16 Allergies/Adverse Reactions: iodine [Iodine] Allergy (Unknown, Verified 04/01/12 14:41) seafood Allergy (Unknown, Uncoded 04/01/12 14:41) Anaphylaxis Review of Systems Constitutional: PRESENT: fatigue, weakness Cardiovascular: PRESENT: dyspnea on exertion, palpitations Gastrointestinal: ABSENT: as per HPI, abdominal pain, bloating, coffee ground emesis, constipation, diarrhea, dysphagia, heartburn, hematemesis, hematochezia , melena, nausea, vomiting, other Neurological: PRESENT: weakness. ABSENT: as per HPI, abnormal gait, abnormal movements, abnormal speech, confusion, convulsions, dizziness, focal weakness, frequent falls, lack of coordination, memory loss, numbness, paresthesias, restless legs, syncope, tingling, tremor(s), vertigo, other Psychiatric: PRESENT: depression Physical Exam Vital Signs: Temp Pulse Resp BP Pulse Ox 93.8 F L 97 18 79/56 L 100 12/23/16 10:05 12/23/16 07:48 12/23/16 10:05 12/23/16 09:30 12/23/16 09:40 General appearance: PRESENT: no acute distress Head exam: PRESENT: normocephalic Eye exam: PRESENT: PERRLA Mouth exam: PRESENT: neck supple Neck exam: PRESENT: JVD Respiratory exam: PRESENT: clear to auscultation chip Cardiovascular exam: PRESENT: irregular rhythm, +S1, +S2, tachycardia GI/Abdominal exam: PRESENT: normal bowel sounds, soft. ABSENT: tenderness Extremities exam: PRESENT: pedal edema Neurological exam: PRESENT: alert, awake, oriented to person, oriented to place , oriented to time Psychiatric exam: PRESENT: anxious Skin exam: PRESENT: dry Results Laboratory Results: 12/23/16 09:10 Blood Type A NEGATIVE 12/23/16 12/23/16 09:10 09:10 Creatine Kinase 76 CK-MB (CK-2) 3.62 Troponin I 0.062 Impressions: Chest X-Ray 12/23/16 04:59 IMPRESSION: No suspicious interval change. Moderate cardiac enlargement, chronic. Assessment & Plan - Diagnosis (1) Hypotension Qualifiers: Hypotension type: unspecified hypotension type Qualified Code(s): I95.9 - Hypotension, unspecified Is this a current diagnosis for this admission?: Yes Plan: Most likely are due to the severe metabolic acidosis and acute renal failureWill start the patient on lephad drip And keep her maintain the blood pressure systolic around 100+ We also get the blood culture urine culture to rule out any infectious process and start the broad-spectrum antibiotics to cover until that cultures back negative (2) Metabolic acidosis Plan: Most likely due to the acute renal failure will start the patient on sodium bicarb drip and the consult the nephrology by Dr. Tran is not available here his PA is available and will try to coordinate with the dialysis but unable to do it here because of surgeon unable to put the catheter (3) Acute renal insufficiency Plan: Continues IV fluid and keep a blood pressures maintain (4) Hypoglycemia Is this a current diagnosis for this admission?: Yes Plan: Continues to D5 right now and may be a consider to give a glucagon (5) Rapid atrial fibrillation Is this a current diagnosis for this admission?: Yes Plan: Seen by Dr. Mccall currently heart rate is stable (6) COPD (chronic obstructive pulmonary disease) Qualifiers: COPD type: unspecified COPD Qualified Code(s): J44.9 - Chronic obstructive pulmonary disease, unspecified Is this a current diagnosis for this admission?: Yes Plan: Continues to nebulizer treatments (7) Diabetes mellitus type 2 in nonobese Is this a current diagnosis for this admission?: Yes Plan: Patient's currently hypoglycemic (8) Right heart failure with reduced right ventricular function Is this a current diagnosis for this admission?: Yes Plan: Patient's last echo was done in October with a normal EF with mild diastolic dysfunctions but severe right ventricular dilatations and pulmonary hypertension 's Patient was admitted in the October for the anasarca and was put the Lasix drips Patient seen by the cardiology today and suggest the patient's possible have a cardiorenal syndromes - Time Time Spent: 50 to 70 Minutes Medications reviewed and adjusted accordingly: Yes Anticipated discharge: [place] Within: Other - Inpatient Certification Medical Necessity: Need Close Monitoring Due to Risk of Patient Decompensation, Need For IV Fluids, Need for IV Antibiotics Post Hospital Care: D/C Scanning Tech Documentation - Plan Summary Plan Summary: Very extensive discussions with the sister who was the only family member available in the hospital regarding the patient's current conditions with the very critical very coordinate care with the nephrology and cardiology while the patient have a certain service is not available we will transfer the patient's to the [facility] pasting inspector service for further evaluations
--- NOTE | 2016-12-23 11:35 | PDOC TRANSFER SUMMARY ---
General Admission Date/PCP: 12/23/16 08:22 JONATAN LÓPEZ MD Transfer Date: 12/23/16 Accepting Facility: [facility] Resuscitation Status: Full Code - Transfer Diagnosis (1) Hypotension Is this a current diagnosis for this admission?: Yes Diagnosis Summary: Currently on a Levophed drip (2) Metabolic acidosis Diagnosis Summary: Currently on a sodium bicarb drip (3) Acute renal insufficiency Diagnosis Summary: Patients probably need to dialysisDefer to the nephrology (4) Hypoglycemia Is this a current diagnosis for this admission?: Yes Diagnosis Summary: Currently on a D5 (5) Rapid atrial fibrillation Is this a current diagnosis for this admission?: Yes Diagnosis Summary: Currently under control (6) COPD (chronic obstructive pulmonary disease) Is this a current diagnosis for this admission?: Yes (7) Diabetes mellitus type 2 in nonobese Is this a current diagnosis for this admission?: Yes (8) Right heart failure with reduced right ventricular function Is this a current diagnosis for this admission?: Yes Diagnosis Summary: See the H&P - Transfer Medications Transfer Medications: Current Medications Acetaminophen (Tylenol 325 Mg Tablet) 650 mg PO Q4HP PRN Stop: 01/22/17 08:21 Acetaminophen (Tylenol 325 Mg Tablet) 650 mg PO .BEFORE TRANSFUSION PRN PRN Reason: THIS MED IS NOT "PRN" Stop: 12/24/16 08:51 Albuterol/Ipratropium (Duoneb 3 Ml Ampul) 3 ml NEB [id number] PRN Stop: 01/22/17 08:21 Calcium Gluconate (Calcium Gluconate Inj 1000 Mg/10 Ml) 1,000 mg IV NOW ONE Stop: 12/23/16 12:01 Diphenhydramine HCl (Benadryl 25 Mg Capsule) 12.5 mg PO .BEFORE TRANSFUSION PRN PRN Reason: THIS MED IS NOT "PRN" Stop: 12/24/16 08:51 Famotidine (Pepcid Inj/Pf 20 Mg/2 Ml Sdv) 20 mg IV Q12 ANUJ Stop: 01/22/17 09:59 Last Admin: 12/23/16 09:42 Dose: 20 mg Heparin Sodium (Porcine) (Heparin Inj 5,000 Units/Ml 1 Ml Syringe) 5,000 unit SUBCUT Q8 ANUJ Stop: 01/22/17 13:59 Heparin Sodium (Porcine) (Heparin Inj 1,000 Unit/Ml 10 Ml Vial) 2,800 unit IV .SPLIT B/N CATHETERS PRN PRN Reason: THIS MED IS NOT "PRN" Stop: 12/23/16 23:59 Sodium Bicarbonate 150 meq/ (Dextrose) 1,000 mls @ 100 mls/hr IV CONTINUOUS PRN PRN Reason: THIS MED IS NOT "PRN" Stop: 01/22/17 06:45 Last Admin: 12/23/16 07:03 Dose: 150 meq Sodium Chloride (Nacl 0.9% 250 Ml Iv Soln) 250 mls @ 30 mls/hr IV .DURING TRANSFUSION PRN PRN Reason: THIS MED IS NOT "PRN" Stop: 12/24/16 08:51 Sodium Chloride (Nacl 0.9% 250 Ml Iv Soln) 250 mls @ 0 mls/hr IV CONTINUOUS PRN ; As Directed PRN Reason: AFTER EACH UNIT Stop: 12/24/16 08:51 Cefepime HCl 1 gm/ Dextrose 50 mls @ 100 mls/hr IV NOON [facility] Stop: 12/30/16 11:59 Norepinephrine Bitartrate 4 mg (/ Dextrose) 250 mls @ 0 mls/hr IV CONTINUOUS PRN; Protocol; Titrate PRN Reason: THIS MED IS NOT "PRN" Stop: 01/22/17 10:59 Last Admin: 12/23/16 11:01 Dose: 4 mg Midodrine (Proamatine 5 Mg Tablet) 5 mg PO BID [facility] Stop: 01/22/17 17:59 Sodium Chloride (Saline Flush 2.5 Ml Monoject Prefil Syrin) 2.5 ml IV Q8 [facility] Stop: 01/22/17 13:59 - Allergies Allergies/Adverse Reactions: iodine [Iodine] Allergy (Unknown, Verified 04/01/12 14:41) seafood Allergy (Unknown, Uncoded 04/01/12 14:41) Anaphylaxis Hospital Course Hospital Course: This is a 76-year-old female present in the emergency department with the palpitation and shortness of the breath and patient found a severe metabolic acidosis and acute renal failure and a rapid ventricular response with AJayla fibAnd patient was put on sodium bicarb drip and also put on IV fluid and the leophad drip And the patient's currently stable but still very critical patient seen by the cardiology and nephrology. With the multiple patient's current conditions with a right-sided heart failure and Pulmonary hypertension'sAnd the severe metabolic acidosis and renal failure patients might get the continuous replacement renal therapy and to further data conversion analyst evaluations and discussed with the data conversion analyst the [facility] and except the patient's discussed with the family Physical Exam Vital Signs: Temp Pulse Resp BP Pulse Ox 94.4 F L 97 21 H 74/54 L 100 12/23/16 11:01 12/23/16 07:48 12/23/16 11:01 12/23/16 10:59 12/23/16 09:40 General appearance: PRESENT: no acute distress Eye exam: PRESENT: PERRLA Respiratory exam: PRESENT: clear to auscultation chip Cardiovascular exam: PRESENT: +S1, +S2 GI/Abdominal exam: PRESENT: normal bowel sounds, soft Neurological exam: PRESENT: alert, awake, oriented to person, oriented to place Results Laboratory Results: 12/23/16 09:10 Blood Type A NEGATIVE 12/23/16 12/23/16 09:10 09:10 Creatine Kinase 76 CK-MB (CK-2) 3.62 Troponin I 0.062 Impressions: Chest X-Ray 12/23/16 04:59 IMPRESSION: No suspicious interval change. Moderate cardiac enlargement, chronic. Plan Time Spent: Greater than 30 Minutes - Transfer the patient's to the [facility] when the bed available
[2016-12-23] MEDS ORDERED: CALCIUM GLUCONATE 1000 MG/10 ML INJ IV ONE (12:00)
[2016-12-23] MEDS ORDERED: CEFEPIME HCL 1 GM in DEXTROSE 5%-WATER 50 ML IV SCH (12:00)
[2016-12-23 12:58] VITALS: BP 88/58
--- NOTE | 2016-12-23 13:05 | PDOC CONSULTATION ---
Consultation Consult Date: 12/23/16 Attending physician:: PATRICE PULLIAM Consult reason:: Hypotension, CHF and pedal edema History of Present Illness Admission Date/PCP: 12/23/16 08:22 JONATAN LÓPEZ MD Patient complains of: Shortness of breath History of Present Illness: AILYN ROMERO is a 76 year old female with a significant history of the right- sided heart failure, chronic A. fib and cor pulmonaleIn the COPD came to the emergency department the complaint of palpitation and shortness of the breath. The patient's found to be in rapid A. fib with hypotension. She given Cardizem' s IV 1. She also had severe metabolic acidosis with a bicarb of 8. At the time of admission to the the ER she was also found to be in acute renal failure with a pH of 6.96 and an HC03 of 5. Patient is hard of hearing and altered so it was hard to get a history from her. The sister that was living with her was able to tell more but still not a clear history. At the time of seeing the patient she was slightly altered and not able to answer questions very well. She had some minor asterixis. Breathing was normal, she complained of no chest pain or shortness of breath. This history was reviewed and confirmed. When I saw the patient in the ER, she was noted to be hypotensive with blood pressure in the 70s. Patient had received some IV fluid but she was clearly in significant right-sided heart failure with markedly elevated JVP. She has a history of this right-sided CHF. Patient was started on Levophed, Midodrin. It was felt that dialysis cannot be supported here because of low blood pressure and that patient may need CRRT and if patient were to be treated to the fullest extent then she will will need tertiary care support. It seems patient wishes to be a full code. Discussions were entered by me with intelligence operations and technical healthcare consultant. It was felt that patient would need tertiary care support. Such arrangements were made by Dr. Pulliam. Past Medical History Cardiac Medical History: Reports: Atrial Fibrillation - Severe pulmonary hypertension, right heart failure, Hyperlipidema, Hypertension Denies: Congestive Heart Failure, Coronary Artery Disease, Myocardial Infarction, Peripheral Vascular Disease, Heart Murmur Pulmonary Medical History: Reports: Chronic Obstructive Pulmonary Disease (COPD) Denies: Sleep Apnea, Tuberculosis Endocrine Medical History: Reports: Diabetes Mellitus Type 2 Denies: Hyperthyroidism, Hypothyroidism Musculoskeltal Medical History: Reports: Arthritis Denies: Fibromyalgia Psychiatric Medical History: Denies: Depression Past Surgical History Past Surgical History: Denies: Amputation, Pacemaker Social History Information Source: Relative Smoking Status: Unknown if Ever Smoked Frequency of Alcohol Use: None Hx Recreational Drug Use: No Hx Prescription Drug Abuse: No - Advance Directive Resuscitation Status: Full Code Surrogate healthcare decision maker:: Patient sister is the surrogate decision-maker Family History Family History: None, Reviewed & Not Pertinent Parental Family History Reviewed: Yes Children Family History Reviewed: Yes Sibling(s) Family History Reviewed.: Yes Medication/Allergy Home Medications: Atorvastatin Calcium [Lipitor 10 mg Tablet] 10 mg PO DAILY 12/23/16 Cyanocobalamin (Vitamin B-12) [Vitamin B-12 Inj 1000 Mcg/1 ml Vial] 1,000 mcg SQ [id number] 12/23/16 Furosemide [Lasix Oral Soln 40 mg/5 ml Udcup] 40 mg PO TID 12/23/16 Metformin HCl [Glucophage] 1,000 mg PO BID 12/23/16 Metoprolol Succinate [Toprol Xl 25 mg Tab.sr] 25 mg PO DAILY 12/23/16 Rivaroxaban [Xarelto] 15 mg PO DAILY 12/23/16 Allergies/Adverse Reactions: iodine [Iodine] Allergy (Unknown, Verified 04/01/12 14:41) seafood Allergy (Unknown, Uncoded 04/01/12 14:41) Anaphylaxis Review of Systems Review of Systems: Currently not available since patient is in the extremities and is very hard of hearing and also noted to be very lethargic and somewhat disoriented. Physical Exam Vital Signs: Temp Pulse Resp BP Pulse Ox 95.0 F L 127 H 26 H 83/54 L 95 12/23/16 12:40 12/23/16 12:40 12/23/16 12:40 12/23/16 12:40 12/23/16 12:40 Intake & Output 12/22/16 12/23/16 12/24/16 06:59 06:59 06:59 Intake Total 292 Balance 292 Exam: GENERAL: well-nourished and in no acute distress. Patient is alert but not oriented to place time or person. HEAD: Atraumatic, normocephalic. EYES: Pupils equal round and reactive to light, extraocular movements intact, sclera anicteric, conjunctiva are normal. ENT: TMs normal, nares patent, oropharynx clear without exudates. Moist mucous membranes. No oral ulcerations or bleeding gums noted NECK: supple without lymphadenopathy. Trachea is central. No cervical or axillary lymphadenopathy noted. Carotids are 2+. Marked venous dilatation noted in the neck. JVD is elevated significantly LUNGS: Breath sounds bibasilar fine crackles at bases. No significant dullness noted. CHEST: Palpation of chest wall shows no significant chest wall tenderness. 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 ABDOMEN: Soft, no significant tenderness appreciated, normoactive bowel sounds. No guarding, no rebound. No rigidity noted . No masses appreciated. EXTREMITIES: Pedal pulses are 1-2+, no calf tenderness noted, Bilateral 2+ pedal edema noted. No clubbing or cyanosis. NEUROLOGICAL: Patient is alert but is not able to participate in neurological exam because of patient's current mental status PSYCH: Patient cannot participate in a neurologic and psych exam because of the patient's current mental status SKIN: No significant ecchymosis, rash, ulcerations or signs of pruritus noted. MUSCULOSKELETAL EXAM: No significant joint swelling noted. Results Laboratory Results: 12/23/16 09:10 Blood Type A NEGATIVE 12/23/16 12/23/16 09:10 09:10 Creatine Kinase 76 CK-MB (CK-2) 3.62 Troponin I 0.062 EKG Comments: Atrial flutter with 2-[address] segment changes noted. Impressions: Chest X-Ray 12/23/16 04:59 IMPRESSION: No suspicious interval change. Moderate cardiac enlargement, chronic. Assessment & Plan - Diagnosis (1) Hypotension Qualifiers: Hypotension type: unspecified hypotension type Qualified Code(s): I95.9 - Hypotension, unspecified Is this a current diagnosis for this admission?: Yes (2) Right heart failure with reduced right ventricular function Is this a current diagnosis for this admission?: Yes (3) Atrial flutter Qualifiers: Atrial flutter type: unspecified Qualified Code(s): I48.92 - Unspecified atrial flutter Is this a current diagnosis for this admission?: Yes (4) COPD (chronic obstructive pulmonary disease) Qualifiers: COPD type: unspecified COPD Qualified Code(s): J44.9 - Chronic obstructive pulmonary disease, unspecified Is this a current diagnosis for this admission?: Yes (5) Acute renal insufficiency Is this a current diagnosis for this admission?: Yes (6) Metabolic acidosis Is this a current diagnosis for this admission?: Yes - Notes Notes: Hypotension: Most likely related to cardiogenic causes but other contributing factor could be sepsis, did order Levophed drip and also Midodrin. Cautious IV fluids small amount challenge can be performed. Right heart failure with RV systolic dysfunction: Patient has a history of it. Prior echocardiograms were reviewed. Atrial flutter with variable conduction predominantly: Currently rate around 120. Currently anticoagulated. May give IV digoxin if needed for rate control. COPD: Continue ventilatory support. Acute renal insufficiency: Banking Representative on the case. Metabolic acidosis: Patient noted to have severe metabolic acidosis. This could be related to cardiogenic cause but also significant contribution from acute renal failure. Multiple discussions made with Dr. Pulliam and also technical healthcare consultant. Feel that patient would best be cared at tertiary care center and such arrangements were made by Dr. Pulliam. - Time Time Spent: 50 to 70 Minutes - CODE STATUS was discussed, patient remains full code. Surrogate decision-maker unchanged. Multiple medical problems were addressed. More than 50% of the time spent coordinating care, discussing management plans with involved caregivers. Management plans discussed with involved personnels. Medical decision making was of moderate to high complexity , patient's has multiple comorbidities. Critical Time spent with patient: 15-25 minutes Medications reviewed and adjusted accordingly: Yes
[2016-12-23] MEDS ORDERED: HEPARIN SOD (PORCINE) 5,000 UNIT/ML 1 ML SYRINGE SUBCUT SCH (14:00)
--- NOTE | 2016-12-23 15:43 | PDOC CONSULTATION ---
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 fib and cor pulmonaleIn the COPD came to the emergency department the complaint of palpitation and shortness of the breath. The patient 's found to be in rapid A. fib with hypotension. She given Cardizem's IV 1. She also had severe metabolic acidosis with a bicarb of 8. At the time of admission to the the ER she was also found to be in acute renal failure with a pH of 6.96 and an HC03 of 5. At the time of seeing her she was already receiving IV bicarb. She was awake and laying in her bed. She was hard of hearing and altered so it was hard to get a history from her. The sister that was living with her was able to tell more but still not a clear history. At the time of seeing the patient she was slightly altered and not able to answer questions very well. She had some minor asterixis. Breathing was normal, she complained of no chest pain or shortness of breath. Was considering starting her on dialysis to help make her less uremic and control the acidosis. After talking with Dr. Mccall the ssds mk 2 advanced operator, hemodialysis did not seem like the best option for her. Dr. Pulliam was informed and she was transferred down to [facility] for possible CRRT. Catheter line was placed at the time because PT/INR was elevated. Past Medical History Cardiac Medical History: Reports: Atrial Fibrillation - Severe pulmonary hypertension, right heart failure, Cor Pulmonale - -end stage, Hyperlipidemia Denies: Coronary Artery Disease, Heart Murmur, Myocardial Infarction, Peripheral Vascular Disease Pulmonary Medical History: Reports: Chronic Obstructive Pulmonary Disease (COPD) Denies: Sleep Apnea, Tuberculosis Endocrine Medical History: Reports: Diabetes Mellitus Type 2 Denies: Hyperthyroidism, Hypothyroidism Musculoskeltal Medical History: Reports: Arthritis Denies: Fibromyalgia, Rheumatoid Arthritis, Systemic Lupus Erythematosus Psychiatric Medical History: Denies: Depression Past Surgical History Past Surgical History: Denies: Pacemaker Social History Smoking Status: Unknown if Ever Smoked Frequency of Alcohol Use: None Hx Recreational Drug Use: No Hx Prescription Drug Abuse: No - Advance Directive Resuscitation Status: Full Code Family History Parental Family History Reviewed: No Children Family History Reviewed: No Sibling(s) Family History Reviewed.: No Medication/Allergy Home Medications: Atorvastatin Calcium [Lipitor 10 mg Tablet] 10 mg PO DAILY 12/23/16 Cyanocobalamin (Vitamin B-12) [Vitamin B-12 Inj 1000 Mcg/1 ml Vial] 1,000 mcg SQ [id number] 12/23/16 Furosemide [Lasix Oral Soln 40 mg/5 ml Udcup] 40 mg PO TID 12/23/16 Metformin HCl [Glucophage] 1,000 mg PO BID 12/23/16 Metoprolol Succinate [Toprol Xl 25 mg Tab.sr] 25 mg PO DAILY 12/23/16 Rivaroxaban [Xarelto] 15 mg PO DAILY 12/23/16 Allergies/Adverse Reactions: iodine [Iodine] Allergy (Unknown, Verified 04/01/12 14:41) seafood Allergy (Unknown, Uncoded 04/01/12 14:41) Anaphylaxis Review of Systems ROS unobtainable: Other - -her sister helped with ROS Constitutional: PRESENT: fatigue, weakness. ABSENT: chills, fever(s) Eyes: ABSENT: visual disturbances Ears: PRESENT: hearing changes - -doesn't hear well Nose, Mouth, and Throat: ABSENT: headache(s) Cardiovascular: PRESENT: dyspnea on exertion, edema Respiratory: PRESENT: dyspnea Gastrointestinal: PRESENT: constipation, nausea. ABSENT: diarrhea, vomiting Genitourinary: PRESENT: nocturia, other - -has had decreasing urination Musculoskeletal: PRESENT: muscle weakness. ABSENT: joint swelling Integumentary: ABSENT: pruritus Neurological: PRESENT: confusion, weakness Psychiatric: PRESENT: anxiety Hematologic/Lymphatic: PRESENT: easy bleeding, easy bruising Physical Exam Vital Signs: Temp Pulse Resp BP Pulse Ox 95.0 F L 127 H 26 H 83/54 L 95 12/23/16 12:40 12/23/16 12:40 12/23/16 12:40 12/23/16 12:40 12/23/16 12:40 Intake & Output 12/22/16 12/23/16 12/24/16 06:59 06:59 06:59 Intake Total 570 Balance 570 General appearance: PRESENT: no acute distress, thin Head exam: PRESENT: atraumatic, normocephalic Eye exam: PRESENT: PERRLA. ABSENT: scleral icterus Neck exam: PRESENT: full ROM. ABSENT: JVD, tracheal deviation Respiratory exam: PRESENT: clear to auscultation chip. ABSENT: accessory muscle use, chest wall tenderness, crackles, rales, rhonchi, wheezes Cardiovascular exam: PRESENT: irregular rhythm, +S1, +S2, systolic murmur, tachycardia GI/Abdominal exam: PRESENT: normal bowel sounds, soft. ABSENT: ascites, diminished bowel sounds, distended, firm, guarding, hernia, hyperactive bowel sounds, hypoactive bowel sounds, tenderness Extremities exam: ABSENT: pedal edema, tenderness Musculoskeletal exam: PRESENT: normal inspection. ABSENT: deformity Neurological exam: PRESENT: altered, oriented to person, oriented to place, other - -minor asterixis noted. ABSENT: oriented to time, oriented to situation Psychiatric exam: PRESENT: flat affect. ABSENT: manic Skin exam: PRESENT: dry, normal color Results Laboratory Results: 12/23/16 09:10 Blood Type A NEGATIVE 12/23/16 12/23/16 09:10 09:10 Creatine Kinase 76 CK-MB (CK-2) 3.62 Troponin I 0.062 Impressions: Chest X-Ray 12/23/16 04:59 IMPRESSION: No suspicious interval change. Moderate cardiac enlargement, chronic. Assessment & Plan - Diagnosis (1) Acute renal insufficiency Plan: Patient looks to be in acute renal failure. She is not producing any urine. BUN is greater than 120, potassium is 5.7 and she is extremely metabolically acidotic. She is showing signs and symptoms of uremia. Recommend starting her on dialysis but due to heart and lung condition would recommend transferring for CRRT. Cause of kidney failure looks to be do from hypotension, either from dehydration or due to her heart condition. Also would order a renal ultrasound to rule out obstructive renal failure. (2) Chronic atrial fibrillation Plan: out of control currently and can not put on beta yue or CA yue due to hypotension. (3) Cor pulmonale Plan: apparent end-stage, makes traditional hemodialysis dialysis not an option. (4) Dehydration Plan: Will rehydrate with normal saline (5) Diabetes mellitus type 2 in nonobese Is this a current diagnosis for this admission?: Yes Plan: currently low and receiving D50 to raise it. (6) Hypotension Qualifiers: Hypotension type: unspecified hypotension type Qualified Code(s): I95.9 - Hypotension, unspecified Is this a current diagnosis for this admission?: Yes Plan: currently getting fluids and on levophed 8mcg (7) Metabolic acidosis Plan: Receiving IV bicarb, dialysis will also help to reverse the metabolic acidosis. Metabolic acididoses could be from kidney failure or from end-stage cor pulmanole.
[2016-12-23] MEDS ORDERED: MIDODRINE HCL 5 MG TABLET PO SCH (18:00)
== END 2016-12-23 12:59 | disposition short-term general hospital (02) | DRG 683 ==
LOC: ER 04:48 → EH 06:47 → UNDOADMIN 06:47 → EH 08:22
PROVIDERS: ADMIT Family Medicine; ATTEND Family Medicine
PROC: 30233K1 Transfusion of Nonautologous Frozen Plasma into Peripheral Vein, Percutaneous Approach (ICD-10-PCS; principal; 2016-12-23)
DX: N17.9 Acute kidney failure, unspecified (principal); E44.0 Moderate protein-calorie malnutrition; Z68.1 Body mass index [BMI] 19.9 or less, adult; E87.2 Acidosis; I48.2 Chronic atrial fibrillation; J44.9 Chronic obstructive pulmonary disease, unspecified; I27.81 Cor pulmonale (chronic); E78.5 Hyperlipidemia, unspecified; I11.0 Hypertensive heart disease with heart failure; I50.9 Heart failure, unspecified; I95.9 Hypotension, unspecified; E86.0 Dehydration; E11.649 Type 2 diabetes mellitus with hypoglycemia without coma; M19.90 Unspecified osteoarthritis, unspecified site; Z99.81 Dependence on supplemental oxygen; Z79.84 Long term (current) use of oral hypoglycemic drugs; Z79.01 Long term (current) use of anticoagulants
CPT/HCPCS: 36415; 36430; 71010; 80053; 82550; 82553; 82803; 82962; 84484; 85025; 85610; 86900; 86901; 87040; 93005; 93010; 96361; 96374; 96375; 99291; J0610; J1940; J3490; J7040; J7060; P9017; S0028